=== PATIENT | male | born 1960 | race Caucasian/White ===

== ENCOUNTER 2020-12-11 08:16 | Outpatient (CLI) | payer OTHER, SELFPAY ==
[2020-12-11 09:20] LABS: Alanine Aminotransferase 30 U/L (4-50); Albumin Level 4.7 g/dL (3.5-5.1); Alkaline Phosphatase 55 U/L (38-126); Anion Gap 10 mmol/L (8-16); Aspartate Amino Transferase 36 U/L (17-59); Bilirubin,Total 0.7 mg/dL (0.2-1.3); Blood Urea Nitrogen 15 mg/dL (9-20); Calcium 9.2 mg/dL (8.4-10.2); Carbon Dioxide 25 mmol/L (22-30); Chloride 106 mmol/L (98-107); Cholesterol 132 mg/dL (0-200); Estimated Glomerular Filt Rate > 60; Glucose 100 mg/dL (65-110); HDL Direct 38 mg/dL; Potassium 4.3 mmol/L (3.4-5.0); Sodium 141 mmol/L (137-145); Triglycerides 46 mg/dL (<150)
[2020-12-11 09:34] LABS: LDL Cholesterol Direct 82 mg/dL
[2020-12-11 09:36] LABS: Hemoglobin A1C 5.6 % (<5.7)
[2020-12-11 09:52] LABS: Prostate Specific Antigen 1.3 ng/mL (< OR = 4.0)
== END 2020-12-11 08:17 | disposition home or self-care (01) ==
PROVIDERS: PCP Internal Medicine; Visit Provider Nurse Practitioner
DX: Z13.6 Encounter for screening for cardiovascular disorders (principal); Z13.29 Encounter for screening for other suspected endocrine disorder; Z12.5 Encounter for screening for malignant neoplasm of prostate; Z13.220 Encounter for screening for lipoid disorders; Z13.1 Encounter for screening for diabetes mellitus
CPT/HCPCS: 36415; 80053; 80061; 83036; 84153; 84443; G0103

== ENCOUNTER 2021-12-10 08:53 | Outpatient (CLI) | payer OTHER, SELFPAY ==
--- NOTE | ~2021-12-10 | XR_ITS ---
XR hip RT min 2V 12/10/2021 09:14 Indication: Right hip pain Procedure: 2 views right hip Comparison: No prior studies for comparison. Findings: There is mild osteoarthritis of the right hip. No fracture, subluxation or dislocation. No significant soft tissue abnormality. No foreign bodies. Impression: 1: Mild osteoarthritis of the right hip. Reviewed, dictated and finalized at location A. Impression: 1: Mild osteoarthritis of the right hip.
== END 2021-12-10 08:54 | disposition home or self-care (01) ==
LOC: ANHLAB 08:56 → ANHIMG 08:56
PROVIDERS: PCP Internal Medicine; Visit Provider Internal Medicine
DX: M16.11 Unilateral primary osteoarthritis, right hip (principal)
CPT/HCPCS: 73502

== ENCOUNTER 2021-12-14 07:47 | Outpatient (CLI) | payer OTHER, SELFPAY ==
[2021-12-14 08:43] LABS: Alanine Aminotransferase 29 U/L (6-50); Albumin Level 4.3 g/dL (3.5-5.1); Alkaline Phosphatase 61 U/L (38-126); Anion Gap 10 mmol/L (8-16); Aspartate Amino Transferase 29 U/L (17-59); Bilirubin,Total 0.6 mg/dL (0.2-1.3); Blood Urea Nitrogen 12 mg/dL (9-20); Calcium 9.2 mg/dL (8.4-10.2); Carbon Dioxide 26 mmol/L (22-30); Chloride 104 mmol/L (98-107); Cholesterol 131 mg/dL (0-200); Estimated Glomerular Filt Rate > 60; Glucose 123 mg/dL (65-110); HDL Direct 33 mg/dL; Potassium 3.7 mmol/L (3.4-5.0); Sodium 140 mmol/L (137-145); Triglycerides 73 mg/dL (<150)
[2021-12-14 08:53] LABS: LDL Cholesterol Direct 81 mg/dL
[2021-12-14 09:13] LABS: Prostate Specific Antigen 1.6 ng/mL (< OR = 4.0)
== END 2021-12-14 07:48 | disposition home or self-care (01) ==
LOC: ANHLAB 07:52
PROVIDERS: PCP Internal Medicine; Visit Provider Internal Medicine
DX: Z00.00 Encounter for general adult medical examination without abnormal findings (principal); Z12.5 Encounter for screening for malignant neoplasm of prostate
CPT/HCPCS: 36415; 80053; 80061; 84153; G0103

== ENCOUNTER 2022-06-23 09:07 | Outpatient (CLI) | payer OTHER, SELFPAY ==
[2022-06-23 09:57] LABS: Alanine Aminotransferase 29 U/L (6-50); Albumin Level 4.7 g/dL (3.5-5.1); Alkaline Phosphatase 52 U/L (38-126); Anion Gap 7 mmol/L (8-16); Aspartate Amino Transferase 31 U/L (17-59); Bilirubin,Total 0.6 mg/dL (0.2-1.3); Blood Urea Nitrogen 14 mg/dL (9-20); Calcium 9.3 mg/dL (8.4-10.2); Carbon Dioxide 29 mmol/L (22-30); Chloride 104 mmol/L (98-107); Estimated Glomerular Filt Rate > 60; Glucose 97 mg/dL (65-110); Potassium 3.7 mmol/L (3.4-5.0); Sodium 140 mmol/L (137-145)
[2022-06-23 10:05] LABS: Hemoglobin A1C 5.6 % (<5.7)
== END 2022-06-23 09:08 | disposition home or self-care (01) ==
PROVIDERS: PCP Internal Medicine; Visit Provider Nurse Practitioner Family
DX: Z00.00 Encounter for general adult medical examination without abnormal findings (principal); R73.01 Impaired fasting glucose
CPT/HCPCS: 36415; 80053; 83036

== ENCOUNTER 2022-07-11 09:43 | Outpatient (CLI) | payer OTHER, SELFPAY ==
[2022-07-11 10:29] LABS: Anion Gap 9 mmol/L (8-16); Blood Urea Nitrogen 15 mg/dL (9-20); Calcium 9.4 mg/dL (8.4-10.2); Carbon Dioxide 26 mmol/L (22-30); Chloride 105 mmol/L (98-107); Estimated Glomerular Filt Rate > 60; Glucose 100 mg/dL (65-110); Sodium 140 mmol/L (137-145)
== END 2022-07-11 09:44 | disposition home or self-care (01) ==
LOC: ANHLAB 09:44
PROVIDERS: PCP Family Medicine; Visit Provider Nurse Practitioner Family
DX: I10 Essential (primary) hypertension (principal)
CPT/HCPCS: 36415; 80048

== ENCOUNTER 2023-02-02 07:06 | Outpatient (CLI) | payer OTHER, SELFPAY ==
[2023-02-02 07:41] LABS: Basophils Absolute Auto 0.1 K/mm3 (0.0-0.1); Basophils Percent Auto 0.6 % (0.2-1.2); Eosinophils Absolute Auto 0.3 K/mm3 (0-0.3); Hematocrit 44.4 % (42.0-52.0); Hemoglobin 14.2 g/dL (14.0-18.0); Immature Granulocyte Absolute 0.02 K/mm3 (0.00-0.031); Immature Granulocyte Percent A 0.2 % (0-0.5); Lymphocytes Absolute Auto 2.26 K/mm3 (0.9-3.2); Lymphocytes Percent Auto 27.1 % (18.3-44.2); Mean Corpuscular Hemoglobin 31.3 pg (26-34); Mean Corpuscular Volume 97.8 fl (80-100); Mean Platelet Volume 9.9 fl (7.4-10.4); Monocytes Absolute Auto 0.7 K/mm3 (0.1-0.6); Monocytes Percent Auto 8.9 % (2.6-8.5); Neutrophils Percent Auto 60.2 % (45.5-73.1); Platelet Count Result 285 k/mm3 (150-375); Red Blood Count 4.54 M/mm3 (4.6-6.20); Red Cell Distribution Width 13.4 % (11.5-14.5); White Blood Count 8.4 K/mm3 (4.5-10.0)
[2023-02-02 07:51] LABS: Alanine Aminotransferase 37 U/L (6-50); Albumin Level 4.4 g/dL (3.5-5.1); Alkaline Phosphatase 53 U/L (38-126); Anion Gap 11 mmol/L (8-16); Aspartate Amino Transferase 32 U/L (17-59); Bilirubin,Total 0.8 mg/dL (0.2-1.3); Blood Urea Nitrogen 14 mg/dL (9-20); Calcium 9.2 mg/dL (8.4-10.2); Carbon Dioxide 25 mmol/L (22-30); Chloride 105 mmol/L (98-107); Cholesterol 130 mg/dL (0-200); Estimated Glomerular Filt Rate > 60; Glucose 105 mg/dL (65-110); HDL Direct 30 mg/dL; Potassium 4.2 mmol/L (3.4-5.0); Sodium 141 mmol/L (137-145); Triglycerides 67 mg/dL (<150)
[2023-02-02 08:02] LABS: LDL Cholesterol Direct 81 mg/dL
[2023-02-02 08:22] LABS: Prostate Specific Antigen 1.8 ng/mL (< OR = 4.0)
== END 2023-02-02 07:07 | disposition home or self-care (01) ==
LOC: ANHLAB 07:08
PROVIDERS: Visit Provider Nurse Practitioner Family
DX: Z13.0 Encounter for screening for diseases of the blood and blood-forming organs and certain disorders involving the immune mechanism (principal); I10 Essential (primary) hypertension; Z13.228 Encounter for screening for other metabolic disorders; Z13.220 Encounter for screening for lipoid disorders; Z12.5 Encounter for screening for malignant neoplasm of prostate
CPT/HCPCS: 36415; 80053; 80061; 84153; 85025; G0103

== ENCOUNTER → 2023-02-02 08:11 | Outpatient (CLI) | payer OTHER, SELFPAY ==
--- NOTE | ~2023-02-02 | CT_ITS ---
CT Scan of the Chest without Contrast: Clinical Indication: Lung cancer screening, personal history of nicotine dependence Technique: Contiguous sections were acquired throughout the chest without intravenous contrast. Dose reduction technique was used on this scan by utilizing automated exposure control and iterative recon struction technique. The dose-length product (DLP) was 263.50 mGy-cm. COMPARISON: 05/26/2017 Findings: There is no evidence of any significant mediastinal, hilar or axillary lymphadenopathy. The mediastin al soft tissues appear normal. There is no evidence of pleural or pericardial effusion. 4 mm right lower lobe pulmonary nodule noted (axial image 71), unchanged. Images through the upper abdomen reveal no abnormalities. Impression: Lung RADS 2: Benign appearance. 12 month follow-up screening CT advised. Reviewed, dictated and finalized at location . [employer] Impression: Lung RADS 2: Benign appearance. 12 month follow-up screening CT advised.
== END ==
PROVIDERS: PCP Nurse Practitioner Family; Visit Provider Nurse Practitioner Family
DX: Z12.2 Encounter for screening for malignant neoplasm of respiratory organs (principal); Z87.891 Personal history of nicotine dependence
CPT/HCPCS: 71271

== ENCOUNTER 2023-12-19 08:57 | Day surgery (SDC) | payer OTHER, SELFPAY ==
[2023-11-08 14:00] VITALS: BMI 36.5
[2023-12-10 10:04] VITALS: BMI 36.0
[2023-12-19 09:38] VITALS: BP 134/92; PULSE 72; RESP 16; TEMP 37.1; O2SAT 98
[2023-12-19] MEDS: LACTATED RINGERS 1,000 ML 150 ML IV CONT (09:41)
--- NOTE | 2023-12-19 10:08 | PM.HPGS ---
History of Present Illness History of Present Illness Consent: Risks, benefits, and alternatives have been discussed and questions answered. Patient agrees to proceed with procedure. Chief complaint: Screening for Neoplasm of Colon Narrative: Jasper Moore is a 63 year old male presents today for colon cancer screening. Patient is are normal. Patient denies abdominal pain. He has had no bleeding. Family history is noncontributory. Review of Systems Review of Systems: All systems reviewed & are unremarkable except as noted in HPI and below PMFSH Past Medical History Medical History (Updated 12/19/23 @ 10:09 by Brian Porter MD) BPH (benign prostatic hyperplasia) Broken bones Hamstring tear Hypertension Kidney stone Surgical History Surgical History History of surgical removal of meniscus of knee Family History Family History Father Cancer Mother Hypertension COPD (chronic obstructive pulmonary disease) Sibling Hypertension Cerebrovascular accident Social History Social History Smoking packs per day: 0.5 Smoking cigarettes per day: 10.0 Years smoked: 43 Smoking pack-years: 21.50 Smoking status: Current every day smoker Tobacco type: cigarettes Second hand tobacco smoke exposure: Yes Alcohol intake: current Alcohol use details: rarely Substance use: never Substance use type: does not use Lack of Transportation: YES Lack of Food: Never True Current Housing: I Have Housing Concerned About Future Housing: No Difficulty Paying Gas/Electric Bills: No Difficulty Paying for Meds: No Currently Unemployed: No Education: High School Diploma/GED Difficulty w/ Childcare or Family Care: No Living arrangements: alone Occupation/Education: occupation Gender identity (if verbalized by the patient): Male Spiritual care concerns: No Meds Home Medications and Allergies Home Medications Medication Instructions Recorded Confirmed Type acetaminophen 500 mg capsule 1,000 mg PO DAILY Pain 12/08/20 12/19/23 History ascorbic acid (vitamin C) 1,000 mg 1 g PO DAILY 12/08/20 12/19/23 History tablet multivitamin 1 tablet PO DAILY 12/08/20 12/19/23 History cholecalciferol (vitamin D3) 10 10 mcg PO DAILY 06/23/22 12/19/23 History mcg (400 unit) capsule propylene glycol 0.6 % eye drops 2 drp EACH EYE DAILY PRN dry 10/26/23 12/19/23 Rx (Lubricant Eye (propylene glycol)) eye(s) #10 mL lisinopril 10 mg tablet 10 mg PO DAILY 12/10/23 12/19/23 History Allergies Allergy/AdvReac Type Severity Reaction Status Date / Time No Known Allergies Allergy Verified 12/19/23 09:37 Vital Signs Vital Signs - 24 hr 12/19/23 09:38 Temperature 98.8 F Pulse Rate 72 Respiratory Rate 16 Blood Pressure 134/92 H Pulse Oximetry 98 Oxygen Delivery Room Air Exam Narrative: Physical exam reveals patient to be alert. Vital signs stable. HEENT exam is unremarkable. Patient is anicteric. Is are clear to auscultation and percussion. Heart is without murmur or extra sounds. Abdomen bowel sounds are present soft nontender with no organomegaly. Digital external rectal exam normal. Assessment and Plan Assessment and plan (1) Screen for colon cancer: Code(s): Z12.11 - Encounter for screening for malignant neoplasm of colon Status: Acute Assessment and Plan: Presents today for screening colonoscopy. He appears to be at average risk for colon polyps. Further recommendations may be given after endoscopy.
--- NOTE | 2023-12-19 11:40 | WPDANESEPPF ---
Anes - Initial Pre Proc Eval Procedure: Operation Date: 12/19/23 11:00 Proposed Procedures p Screening Colonoscopy - Brian Porter MD Date/Time: 12/19/23 11:40 Surgeon: Brian Porter MD Pre Op Diagnosis: Screening for Neoplasm of Colon Patient Data Age: 63 Gender: M Height: 1.78 m Weight: 113.1 kg Last Vital Signs Temp 37.1 C 12/19/23 09:38 Pulse 72 12/19/23 09:38 Resp 16 12/19/23 09:38 BP 134/92 H 12/19/23 09:38 Pulse Ox 98 12/19/23 09:38 O2 Del Method Room Air 12/19/23 09:38 Allergies Allergy/AdvReac Type Severity Reaction Status Date / Time No Known Allergies Allergy Verified 12/19/23 09:37 Home Medications Medication Instructions Recorded Confirmed Type acetaminophen 500 mg capsule 1,000 mg PO DAILY Pain 12/08/20 12/19/23 History ascorbic acid (vitamin C) 1,000 mg 1 g PO DAILY 12/08/20 12/19/23 History tablet multivitamin 1 tablet PO DAILY 12/08/20 12/19/23 History cholecalciferol (vitamin D3) 10 10 mcg PO DAILY 06/23/22 12/19/23 History mcg (400 unit) capsule propylene glycol 0.6 % eye drops 2 drp EACH EYE DAILY PRN dry 10/26/23 12/19/23 Rx (Lubricant Eye (propylene glycol)) eye(s) #10 mL lisinopril 10 mg tablet 10 mg PO DAILY 12/10/23 12/19/23 History Patient hx anesthesia problems: none Family hx anesthesia problems: none Results Review: All pre-operative results and documents have been reviewed as part of the pre-operative evaluation. [facility] Past Medical History Medical History (Updated 12/19/23 @ 10:09 by Brian Porter MD) BPH (benign prostatic hyperplasia) Broken bones Hamstring tear Hypertension Kidney stone Surgical History Surgical History History of surgical removal of meniscus of knee Family History Family History Father Cancer Mother Hypertension COPD (chronic obstructive pulmonary disease) Sibling Hypertension Cerebrovascular accident Social History Social History Smoking packs per day: 0.5 Smoking cigarettes per day: 10.0 Years smoked: 43 Smoking pack-years: 21.50 Smoking status: Current every day smoker Tobacco type: cigarettes Second hand tobacco smoke exposure: Yes Alcohol intake: current Alcohol use details: rarely Substance use: never Substance use type: does not use Lack of Transportation: YES Lack of Food: Never True Current Housing: I Have Housing Concerned About Future Housing: No Difficulty Paying Gas/Electric Bills: No Difficulty Paying for Meds: No Currently Unemployed: No Education: High School Diploma/GED Difficulty w/ Childcare or Family Care: No Living arrangements: alone Occupation/Education: occupation Gender identity (if verbalized by the patient): Male Spiritual care concerns: No Anes - Eval Final PreProcedure Day of Procedure 12/19/23 11:40 Patient weight: obese Heart: regular rate and rhythm Lungs: clear to auscultation Airway: Mallampati scale class II Neurological: alert and oriented Last oral intake: >/= 8 hours ASA classification: III Emergent: no Anesthetic plan: proceed Anesthesia type and monitoring: general GIVS and standard monitoring Results Review: All pre-operative results and documents have been reviewed as part of the pre-operative evaluation. Informed Consent: The patient's anesthetic plan and its attendant risks and benefits were discussed with the patient/family/POA. Questions were solicited and answers provided to the satisfaction of the patient/family/POA.
[2023-12-19 12:15] VITALS: BP 134/89; PULSE 74; RESP 18; O2SAT 95
[2023-12-19 12:25] VITALS: BP 139/92; PULSE 60; RESP 16; O2SAT 99
[2023-12-19 12:35] VITALS: BP 151/90; PULSE 67; RESP 16; O2SAT 97
[2023-12-19 12:45] VITALS: PULSE 65; RESP 16; O2SAT 97
--- NOTE | 2023-12-19 13:04 | SUR.PHASEII ---
[address] Trinh, pt had A-fib noted on monitor during procedure. EKG obtained in phase [address] to Dr[address] Trinh for review. Pt confirmed to be in A-fib. Pt denies chest pain, dizziness, lightheadedness, or SOB. A-fib is new onset. Dr. Trinh spoke with pt at bedside regarding further instructions of calling PCP upon leaving facility and to report to ER if symptoms of above occur. Pt states understanding. Copy of EKG made and given to patient. Original placed on chart. Pt A&Ox4, VSS. Pt wheeled out of ASC in no apparent distress.
--- NOTE | 2023-12-19 13:25 | WPDANESPN ---
Anes - Prog Note Post-Op Date/Time: 12/19/23 13:25 Vital Signs: Last Vital Signs Temp 37.1 C 12/19/23 09:38 Pulse 65 12/19/23 12:45 Resp 16 12/19/23 12:45 BP 151/90 H 12/19/23 12:35 Pulse Ox 97 12/19/23 12:45 O2 Del Method Room Air 12/19/23 12:45 Pain Score (VAS): 0 I/O: Intake & Output 12/18/23 12/19/23 12/19/23 23:59 07:59 15:59 Intake Total 200 Balance 200 Patient Feedback: Patient satisfied with anesthetic care. Other Findings: Patient found to have A fib during coloscopy. 12 lead EKG confirmed A fib in recovery. Patient given copy and informed to call PCP after leaving to set up appt for outpatient treatment for new onset A fib. Patients other vitals were stable, rate controlled, asymptomatic. Patient instructed to go to ER if chest pain, dyspnea, syncope or near syncope or any other abnormal symptoms occur.
--- NOTE | 2023-12-19 14:01 | WPDANESPN ---
Anes - Prog Note Post-Op Date/Time: 12/19/23 14:01 Cardiovascular status: normal Respiratory status: normal Airway patency: baseline Mental status: baseline Post-Op hydration status: normal Vital Signs: Last Vital Signs Temp 37.1 C 12/19/23 09:38 Pulse 65 12/19/23 12:45 Resp 16 12/19/23 12:45 BP 151/90 H 12/19/23 12:35 Pulse Ox 97 12/19/23 12:45 O2 Del Method Room Air 12/19/23 12:45 Pain Score (VAS): 0 I/O: Intake & Output 12/18/23 12/19/23 12/19/23 23:59 07:59 15:59 Intake Total 200 Balance 200 Post-procedural complaints: none Patient Feedback: Patient satisfied with anesthetic care. Other Findings: Patient vital signs back to baseline. Patient denies nausea and vomiting. Patient's pain under control. Patient OK for discharge.
== END 2023-12-19 12:55 | disposition home or self-care (01) ==
PROVIDERS: PCP Nurse Practitioner Family; Visit Provider Internal Medicine Gastroenterology
PROC: 0DJD8ZZ Inspection of Lower Intestinal Tract, Via Natural or Artificial Opening Endoscopic (ICD-10-PCS; CPT 45378; principal; 2023-12-19 11:00)
DX: Z12.11 Encounter for screening for malignant neoplasm of colon (principal); D12.2 Benign neoplasm of ascending colon; D12.5 Benign neoplasm of sigmoid colon; K57.30 Diverticulosis of large intestine without perforation or abscess without bleeding; K64.8 Other hemorrhoids
CPT/HCPCS: 45385

== ENCOUNTER 2023-12-19 09:00 | Outpatient (NON) | payer OTHER, SELFPAY | END 2023-12-19 09:01 | disposition home or self-care (01) | LOC: ANHLAB 12-20 09:00 | PROVIDERS: PCP Nurse Practitioner Family; Visit Provider Internal Medicine Gastroenterology | DX: Z12.11 Encounter for screening for malignant neoplasm of colon (principal) | CPT/HCPCS: 88305; 88342 ==

== ENCOUNTER 2023-12-20 10:34 | Outpatient (CLI) | payer OTHER, SELFPAY ==
[2023-12-20 11:02] LABS: Hematocrit 45.6 % (42.0-52.0); Mean Corpuscular HGB Conc 32.9 g/dl (32-36); Mean Corpuscular Hemoglobin 31.8 pg (26-34); Mean Corpuscular Volume 96.8 fl (80-100); Mean Platelet Volume 10.1 fl (7.4-10.4); Platelet Count Result 302 k/mm3 (150-375); Red Blood Count 4.71 M/mm3 (4.6-6.20); Red Cell Distribution Width 13.2 % (11.5-14.5)
[2023-12-20 11:18] LABS: Alanine Aminotransferase 37 U/L (6-50); Albumin Level 4.5 g/dL (3.5-5.1); Alkaline Phosphatase 56 U/L (38-126); Anion Gap 9 mmol/L (4-12); Aspartate Amino Transferase 37 U/L (17-59); Bilirubin,Total 0.6 mg/dL (0.2-1.3); Blood Urea Nitrogen 18 mg/dL (9-20); Calcium 9.2 mg/dL (8.4-10.2); Carbon Dioxide 24 mmol/L (22-30); Chloride 106 mmol/L (98-107); Cholesterol 128 mg/dL (0-200); Estimated Glomerular Filt Rate > 60; Glucose 104 mg/dL (65-110); HDL Direct 28 mg/dL; Sodium 139 mmol/L (137-145); Triglycerides 74 mg/dL (<150)
[2023-12-20 11:27] LABS: NT Pro B Type Natriuretic Pept 1190 pg/mL (19.9-100)
[2023-12-20 11:30] LABS: LDL Cholesterol Direct 75 mg/dL
[2023-12-20 12:10] LABS: Free T4 Free Thyroxine 1.23 ng/mL (0.78-2.19)
[2023-12-20 13:49] LABS: Hemoglobin A1C 6.1 % (<5.7)
== END 2023-12-20 10:35 | disposition home or self-care (01) ==
LOC: ANHLAB 10:35
PROVIDERS: PCP Nurse Practitioner Family; Visit Provider Nurse Practitioner Family
DX: I48.91 Unspecified atrial fibrillation (principal); H57.89 Other specified disorders of eye and adnexa; I10 Essential (primary) hypertension; K42.9 Umbilical hernia without obstruction or gangrene; M19.90 Unspecified osteoarthritis, unspecified site; M25.561 Pain in right knee; R22.9 Localized swelling, mass and lump, unspecified; Z00.00 Encounter for general adult medical examination without abnormal findings; Z13.220 Encounter for screening for lipoid disorders; Z72.0 Tobacco use; Z13.1 Encounter for screening for diabetes mellitus; Z68.31 Body mass index [BMI] 31.0-31.9, adult
CPT/HCPCS: 36415; 80053; 80061; 83036; 83880; 84439; 84443; 85027; 85610

== ENCOUNTER 2024-02-06 13:16 | Outpatient (CLI) | payer OTHER, SELFPAY ==
--- NOTE | 2024-02-06 13:36 | ECHO_ITS ---
Patient Info Name: Jasper Moore Age: 64 years : 1960 Gender: Male Ht: 70 in Wt: 250 lbs BSA: 2.41 m2 HR: 75 bpm BP: 160 / 95 mmHg Heart Rhythm: Atrial Fibrillation Technical Quality: Fair Exam Date: 02/06/2024 1:51 PM Exam Location: Echo Lab Patient Status: Outpatient Admit Date: 02/06/2024 Staff Ordering Physician: Gonzales Leone DO Electric Arc Welder: Radha Reaves RDCS Attending Provider: Gonzales Leone DO Referring Physician: Vasu VUONG; Exam Type: CA echo dop color flow w con Study Info Indications I48.1 - Persistent atrial fibrillation Complete two-dimensional, color flow and Doppler transthoracic echocardiogram is performed. Summary 1. Complete two-dimensional, color flow and Doppler transthoracic echocardiogram is performed. 2. Left ventricular chamber dimension is moderately enlarged. 3. Left ventricular systolic function is mildly reduced, estimated at 45-50%. 4. The left ventricular diastolic function is abnormal. 5. E/e' 13 is mildly elevated. 6. Atrial fibrillation. 7. Left atrial chamber dimension is severely enlarged. 8. Right atrial chamber dimension is mildly enlarged. 9. There is mild aortic valve sclerosis. 10. The mitral valve has mildly calcified annulus. 11. There is trace mitral valve regurgitation. 12. There is trace pulmonic regurgitation. Left Ventricle E/e' 13 is mildly elevated. Atrial fibrillation. Left ventricular chamber dimension is moderately enlarged. Left ventricular systolic function is mildly reduced, estimated at 45-50%. The left ventricular diastolic function is abnormal. Right Ventricle Right ventricular systolic function is normal and with normal TAPSE 2.5 cm. Right ventricular chamber dimension is normal. Left Atria Left atrial chamber dimension is severely enlarged. Right Atria Right atrial chamber dimension is mildly enlarged. Aortic Valve The aortic valve is trileaflet. There is mild aortic valve sclerosis. There is no aortic valve stenosis. There is no aortic valve regurgitation. Pulmonic Valve There is trace pulmonic regurgitation. Mitral Valve The mitral valve has mildly calcified annulus. There is no mitral valve stenosis. There is trace mitral valve regurgitation. Tricuspid Valve There is no tricuspid valve regurgitation. Pericardium/Pleural There is no pericardial effusion. Inferior Vena Cava Normal inferior vena cava with >50% collapse upon inspiration consistent with normal right atrial pressure, 5 mmHg. Aorta The aortic root size at the sinus of Valsalva is normal. Left Ventricular Outflow Tract Name Value Normal LVOT 2D LVOT Diameter 2.08 cm LVOT Doppler LVOT Peak Gradient 6 mmHg LVOT Mean Gradient 3 mmHg LVOT VTI 18.85 cm LVOT VTI/AV VTI Ratio 0.85 LVOT Stroke Volume 64.11 ml LVOT CO 4.48 l/min LVOT CI 1.86 L/min/m2 Pulmonic Valve Name Value Normal PV Doppler PV Peak Gradient 5 mmHg PV Regurgitation Doppler CA Peak End Diastolic Velocity 141.61 cm/s Mitral Valve Name Value Normal MV Doppler MV Decel [place] 624.60 cm/s2 MV PHT 0 s MV Area (PHT) 4.07 cm2 4.00-5.00 MV Diastolic Function MV E Peak Velocity 116.34 cm/s MV A Peak Velocity 0.46 cm/s MV E/A 254.05 MV Decel Time 0 s Tricuspid Valve Name Value Normal Estimated PAP/RSVP RA Pressure 5 mmHg <=5 Aorta Name Value Normal Ascending Aorta Ao Root Diameter (MM) 2.63 cm Ao Root Diam Index (MM) 1.09 cm/m2 Aortic Valve Name Value Normal AV Doppler AV Peak Velocity 139.21 cm/s AV Peak Gradient 8 mmHg AV Mean Gradient 4 mmHg AV VTI 22.05 cm AV Area (Cont Eq VTI) 2.91 cm2 >=3.00 AV Area (Cont Eq Rafael) 3.02 cm2 AV Regurgitation 2D LVOT Area 3.40 cm2 Ventricles Name Value Normal LV Dimensions 2D/MM IVS Diastolic Thickness (2D) 0.96 cm 0.60-1.00 IVS Diastole Thickness (MM) 1.04 cm 0.60-1.00 LVID Diastole (2D) 6.17 cm 4.20-5.80 LVID Diastole (MM) 6.32 cm 4.20-5.80 LVIW Diastolic Thickness (2D) 0.96 cm 0.60-1.00 LVIW Diastolic Thickness (MM) 1.04 cm 0.60-1.00 LVID Systole (2D) 3.80 cm 2.50-4.00 LVID Systole (MM) 4.51 cm 2.50-4.00 LVOT Diameter 2.08 cm LV Mass (2D Cubed) 244.55 g 88.00-224.00 LV Mass Index (2D Cubed) 0.01 g/cm2 0.00-0.01 Relative Wall Thickness (2D) 0.31 LV Mass (MM Cubed) 283.27 g 88.00-224.00 LV Mass Index (MM Cubed) 0.01 g/cm2 0.00-0.01 Relative Wall Thickness (MM) 0.33 LV Fractional Shortening/Ejection Fraction 2D/MM LV Fractional Shortening (2D) 38 % 25-43 LV Fractional Shortening (MM) 29 % 25-43 LV EF (MM Teicholz) 54 % 52-72 LV EF (2D Teicholz) 68 % 52-72 LV Diastolic Volume (4C MOD) 138.47 ml LV EF (4C MOD) 40 % LV Diastolic Volume (2C MOD) 120.02 ml LV EF (2C MOD) 40 % LV Diastolic Volume (BP MOD) 129.67 ml 62.00-150.00 LV Diastolic Volume Index (BP MOD) 0.05 l/m2 0.03-0.07 LV Systolic Volume (BP MOD) 77.81 ml 21.00-61.00 LV Systolic Volume Index (BP MOD) 0.03 l/m2 0.01-0.03 LV EF (BP MOD) 40 % 52-72 LV Diastolic Length (4C) 8.74 cm LV Systolic Length (4C) 7.26 cm LV Stroke Volume (4C MOD) 56.03 ml Atria Name Value Normal LA Dimensions LA Dimension (MM) 6.00 cm 3.00-4.10 LA Volume (4C A-L) 143.72 ml LA Volume (BP A-L) 129.98 ml RA Dimensions RA Area (4C) 22.76 cm2 <=18.00 Report Signatures
--- NOTE | 2024-02-06 15:06 | IVDEFINITY ---
Prior to administration of IV Definity the patient was educated on the risks and benefits of the imaging enhancing agent including potential adverse side effects. The patient verbalized understanding. Allergies were verified. No exclusion criteria were identified and at least one of the following inclusion criteria were met: 1) physician request, 2) patient technically difficult to image (per the [place] [employer]chocardi[employer] guidelines of two or more segments not discernable within the apical view), or 3) questionable left ventricular function. ?
== END 2024-02-06 13:17 | disposition home or self-care (01) ==
PROVIDERS: PCP Nurse Practitioner Family; Visit Provider Internal Medicine Cardiovascular Disease
DX: I48.91 Unspecified atrial fibrillation (principal)
CPT/HCPCS: 93306; C8929

== ENCOUNTER 2024-03-26 07:52 | Outpatient (CLI) | payer OTHER, SELFPAY ==
--- NOTE | ~2024-03-26 | NM_ITS ---
EXAMINATION: NM ozzie stress w perfusion DATE: 03/26/2024 10:03 INDICATION: Heart disease. TECHNIQUE: Rest images were obtained following intravenous administration of 10.9 mCi Tc99m tetrofosm in (Myoview). The patient was infused intravenously with Lexiscan (regadenoson). Then, 34.6 mCi Tc99m tetrofosmin (Myoview) was administered intravenously, and stress images were obtained. Data was leland nstructed into short axis and horizontal and vertical long axis SPECT images. Gated SPECT images were also obtained. COMPARISON: None. FINDINGS: There is no definite reversible or fixed perfusion abnormality to suggest ischemia or infar ction. There is no segmental wall motion abnormality. Left ventricular ejection fraction measures 3 8%. IMPRESSION: 1. No definite ischemia or infarct. 2. Global hypokinesis with left ventricular ejection fraction measuring 38%. Reviewed, dictated and finalized at location A. ET DEVELOPMENT ANALYST
--- NOTE | 2024-03-26 08:52 | EST_ITS ---
Patient Info Name: Jasper Moore Age: 64 years : 1960 Gender: Male Ht: 70 in Wt: 250 lbs BSA: 2.41 m2 HR: 67 bpm BP: 146 / 99 mmHg Exam Date: 03/26/2024 9:00 AM Exam Location: Echo Lab Patient Status: Outpatient Admit Date: 03/26/2024 Staff Ordering Physician: Gonzales Leone DO Attending Provider: Gonzales Leone DO Exercise Technologist: Gem Vasquez RDCS Exercise Physician: Gonzales Leone DO Exam Type: CA stress ozzie w NM Study Info A regadenoson stress test was performed. Summary 1. 1. Negative lexiscan stress test for ischemic ST changes by ECG criteria. 2. 2. Stable hemodynamics throughout the test. 3. 3. Nuclear scan to follow and will be reported separately. Please correlate with it. 4. 4. Patient informed of the above results. Protocol: Lexiscan Stress ECG Details Stage: REST Duration (min): 1 min : 27 sec HR (bpm): 69 SBP (mmHg): 146 DBP (mmHg): 99 Stage: REST Duration (min): 8 min : 10 sec HR (bpm): 71 SBP (mmHg): 146 DBP (mmHg): 99 Stage: STAGE 1 Duration (min): 1 min : 0 sec HR (bpm): 74 SBP (mmHg): 139 DBP (mmHg): 104 Stage: RECOVERY Duration (min): 1 min : 0 sec HR (bpm): 87 SBP (mmHg): 139 DBP (mmHg): 104 Stage: RECOVERY Duration (min): 2 min : 0 sec HR (bpm): 81 SBP (mmHg): 139 DBP (mmHg): 104 Stage: RECOVERY Duration (min): 3 min : 0 sec HR (bpm): 83 SBP (mmHg): 132 DBP (mmHg): 93 Stage: RECOVERY Duration (min): 3 min : 13 sec HR (bpm): 80 SBP (mmHg): 132 DBP (mmHg): 93 Rest HR: 71 bpm Peak HR: 91 bpm Rest Sys BP: 146 mmHg Peak Sys BP: 139 mmHg Max Pred HR: 156 bpm % Max Pred HR: 58 % Target HR: 133 bpm Max RPP: 12,649 bpm*mmHg Termination Reason: Completed protocol Cardiac Symptoms: Shortness of breath, Chest tightness Total Time: 1 min : 0 sec Rest Varner BP: 99 mmHg Peak Varner BP: 104 mmHg Total Dose: 0.4 mg Resting ECG Atrial fibrillation, borderline ST-T wave abnormality in diffuse leads. Stress ECG No ST changes. Arrhythmias No other arrhythmias. Report Signatures
== END 2024-03-26 07:53 | disposition home or self-care (01) ==
PROVIDERS: PCP Nurse Practitioner Family; Visit Provider Internal Medicine Cardiovascular Disease
DX: I51.9 Heart disease, unspecified (principal)
CPT/HCPCS: 78452; 93017; A9502; J2785

== ENCOUNTER 2024-06-05 02:05 | Day surgery (SDC) | payer OTHER, SELFPAY ==
[2024-02-29 14:59] VITALS: BMI 35.9
--- NOTE | 2024-02-29 15:37 | PC.NURSE ---
pat call done for upcoming colonoscopy mar 24, 2024. Pt stated he had colonoscopy done early december 2023 and during procedure he was in afib. he did see dr oquendo for evaluation and had an echo done, was started on asa 325mg. pt stated he is supposed to have more testing done but wasn't sure exactly what tests were. he is waiting to hear back from dr brito office. informed pt we would be obtaining cardiac clearance from dr oqunedo and if further testing needed to be done, procedure may be rescheduled. pt agreeable and voiced understanding. cardiac clearance faxed to dr brito office with confirmation received.
--- NOTE | 2024-03-23 10:24 | SUR.PREOP ---
Pt called this am to cancel his appointment on 03/24 due to provider availability. Pt rescheduled to 06/16 at 1000.
[2024-05-28 14:41] VITALS: BMI 35.9
[2024-06-05 12:48] VITALS: BP 134/104; PULSE 76; RESP 18; TEMP 36.2; O2SAT 99; BMI 35.9
[2024-06-05] MEDS: LACTATED RINGERS 1,000 ML 150 ML IV CONT (13:00)
--- NOTE | 2024-06-05 13:00 | PM.IMHP ---
H&P: HPI History of Present Illness Date/Time: 06/05/24 13:00 Chief Complaint: History of colonic carcinoma Narrative: on December 2023 the patient underwent a screening colonoscopy finding a large ascending colon polyp, which was resected. Pathology revealed adenocarcinoma with invasion to the lamina propria with additional lymphovascular invasion. He is here for follow-up. Review of Systems Review of Systems: All systems reviewed & are unremarkable except as noted in HPI and below PMFSH Past Medical History Medical History (Updated 05/02/24 @ 09:12 by Emelina Wetzel APRN) BMI 31.0-31.9,adult Screen for colon cancer BPH (benign prostatic hyperplasia) Hypertension Hamstring tear Broken bones Kidney stone Surgical History Surgical History History of surgical removal of meniscus of knee Family History Family History Father Cancer Mother Hypertension COPD (chronic obstructive pulmonary disease) Sibling Hypertension Cerebrovascular accident Social History Social History Smoking packs per day: 0.5 Smoking cigarettes per day: 10.0 Years smoked: 43 Smoking pack-years: 21.50 Smoking status: Current some day smoker Tobacco type: cigarettes Second hand tobacco smoke exposure: Yes Additional smoking assessment comments: 1/2 pack a day Alcohol intake: current Alcohol use details: rarely Substance use: never Substance use type: does not use Lack of Transportation: YES Lack of Food: Never True Current Housing: I Have Housing Concerned About Future Housing: No Difficulty Paying Gas/Electric Bills: No Difficulty Paying for Meds: No Currently Unemployed: No Education: High School Diploma/GED Difficulty w/ Childcare or Family Care: No Living arrangements: alone Occupation/Education: occupation Gender identity (if verbalized by the patient): Male Spiritual care concerns: No Meds Home Medications and Allergies Home Medications ?Medication ?Instructions ?Recorded ?Confirmed ?Type acetaminophen 500 mg capsule 1,000 mg PO DAILY Pain 12/08/20 06/05/24 History ascorbic acid (vitamin C) 1,000 mg 1 g PO DAILY 12/08/20 06/05/24 History tablet multivitamin 1 tablet PO DAILY 12/08/20 06/05/24 History cholecalciferol (vitamin D3) 10 10 mcg PO DAILY 06/23/22 06/05/24 History mcg (400 unit) capsule propylene glycol 0.6 % eye drops 2 drp EACH EYE DAILY PRN dry 10/26/23 05/02/24 Rx (Lubricant Eye (propylene glycol)) eye(s) #10 mL aspirin 325 mg tablet,delayed 325 mg PO DAILY 01/11/24 06/05/24 History release lisinopril 10 mg tablet See Rx Instructions .Route 01/28/24 06/05/24 Rx .COMPLEX #90 tabs Allergies Allergy/AdvReac Type Severity Reaction Status Date / Time No Known Allergies Allergy Verified 06/05/24 12:56 Vital Signs Vital Signs - 24 hr 06/05/24 12:48 Temperature 97.1 F L Pulse Rate 76 Respiratory Rate 18 Blood Pressure 134/104 H Pulse Oximetry 99 Oxygen Delivery Room Air Exam Const: General: cooperative and healthy appearing Resp: Effort & Inspection: normal respiratory effort and able to speak in complete sentences Auscultation: clear to auscultation bilaterally Cardio: Rate: regular rate Rhythm: regular rhythm GI: Inspection: normal to inspection GI Palp: No No hepatosplenomegaly present Auscultation: normal bowel sounds Rectal Exam: deferred Skin: General skin exam: normal color Psych: Appearance: grossly normal Mental Status: mental status grossly normal Assessment and Plan Assessment and plan (1) Colon polyp: Qualifiers: Colon polyp type: unspecified Colon location: unspecified part of colon Qualified Code(s): K63.5 - Polyp of colon Code(s): K63.5 - Polyp of colon Status: Acute Assessment and Plan: The patient is deemed a good candidate for the procedure. Consent signed. Will proceed.
--- NOTE | 2024-06-05 13:01 | SUR.PREOP ---
Notified of patients blood pressure of 144/109 and 134/104. Also, notified Dr. Caicedo that patient stated had 2 pancakes with syrup yesterday (06/04) at 0[address]. Dr. Caicedo will proceed with procedure.
--- NOTE | 2024-06-05 13:17 | WPDANESEPPF ---
Anes - Initial Pre Proc Eval Procedure: Operation Date: 06/05/24 14:00 Proposed Procedures p Colonoscopy - Paul Caicedo MD Date/Time: 06/05/24 13:17 Surgeon: Paul Caicedo MD Pre Op Diagnosis: hx of colon polyps Patient Data Age: 64 Gender: M Height: 1.78 m Weight: 113.4 kg Last Vital Signs Temp 36.2 C L 06/05/24 12:48 Pulse 76 06/05/24 12:48 Resp 18 06/05/24 12:48 BP 134/104 H 06/05/24 12:48 Pulse Ox 99 06/05/24 12:48 O2 Del Method Room Air 06/05/24 12:48 Allergies Allergy/AdvReac Type Severity Reaction Status Date / Time No Known Allergies Allergy Verified 06/05/24 12:56 Home Medications ?Medication ?Instructions ?Recorded ?Confirmed ?Type acetaminophen 500 mg capsule 1,000 mg PO DAILY Pain 12/08/20 06/05/24 History ascorbic acid (vitamin C) 1,000 mg 1 g PO DAILY 12/08/20 06/05/24 History tablet multivitamin 1 tablet PO DAILY 12/08/20 06/05/24 History cholecalciferol (vitamin D3) 10 10 mcg PO DAILY 06/23/22 06/05/24 History mcg (400 unit) capsule propylene glycol 0.6 % eye drops 2 drp EACH EYE DAILY PRN dry 10/26/23 05/02/24 Rx (Lubricant Eye (propylene glycol)) eye(s) #10 mL aspirin 325 mg tablet,delayed 325 mg PO DAILY 01/11/24 06/05/24 History release lisinopril 10 mg tablet See Rx Instructions .Route 01/28/24 06/05/24 Rx .COMPLEX #90 tabs Patient hx anesthesia problems: none Family hx anesthesia problems: none Results Review: All pre-operative results and documents have been reviewed as part of the pre-operative evaluation. [facility] Past Medical History Medical History BMI 31.0-31.9,adult Screen for colon cancer BPH (benign prostatic hyperplasia) Hypertension Hamstring tear Broken bones Kidney stone Surgical History Surgical History History of surgical removal of meniscus of knee Family History Family History Father Cancer Mother Hypertension COPD (chronic obstructive pulmonary disease) Sibling Hypertension Cerebrovascular accident Social History Social History Smoking packs per day: 0.5 Smoking cigarettes per day: 10.0 Years smoked: 43 Smoking pack-years: 21.50 Smoking status: Current some day smoker Tobacco type: cigarettes Second hand tobacco smoke exposure: Yes Additional smoking assessment comments: 1/2 pack a day Alcohol intake: current Alcohol use details: rarely Substance use: never Substance use type: does not use Lack of Transportation: YES Lack of Food: Never True Current Housing: I Have Housing Concerned About Future Housing: No Difficulty Paying Gas/Electric Bills: No Difficulty Paying for Meds: No Currently Unemployed: No Education: High School Diploma/GED Difficulty w/ Childcare or Family Care: No Living arrangements: alone Occupation/Education: occupation Gender identity (if verbalized by the patient): Male Spiritual care concerns: No Anes - Eval Final PreProcedure Day of Procedure 06/05/24 13:17 Patient weight: obese Heart: irregular rhythm Lungs: decreased breath sounds Airway: Mallampati scale class II Neurological: alert and oriented Last oral intake: >/= 8 hours ASA classification: III Emergent: no Anesthetic plan: proceed Anesthesia type and monitoring: general GIVS and standard monitoring Results Review: All pre-operative results and documents have been reviewed as part of the pre-operative evaluation. Informed Consent: The patient's anesthetic plan and its attendant risks and benefits were discussed with the patient/family/POA. Questions were solicited and answers provided to the satisfaction of the patient/family/POA.
[2024-06-05 13:53] VITALS: BP 137/79; PULSE 72; RESP 22; O2SAT 94
[2024-06-05 14:03] VITALS: BP 129/90; PULSE 75; RESP 22; O2SAT 95
[2024-06-05 14:13] VITALS: BP 138/98; PULSE 75; RESP 25; O2SAT 98
== END 2024-06-05 14:21 | disposition home or self-care (01) ==
PROVIDERS: PCP Nurse Practitioner Family; Visit Provider Internal Medicine Gastroenterology
PROC: 0DJD8ZZ Inspection of Lower Intestinal Tract, Via Natural or Artificial Opening Endoscopic (ICD-10-PCS; CPT 45378; principal; 2024-06-05 14:00)
DX: Z08 Encounter for follow-up examination after completed treatment for malignant neoplasm (principal); D12.2 Benign neoplasm of ascending colon; K57.30 Diverticulosis of large intestine without perforation or abscess without bleeding; N40.0 Benign prostatic hyperplasia without lower urinary tract symptoms; I10 Essential (primary) hypertension; F17.210 Nicotine dependence, cigarettes, uncomplicated; E66.9 Obesity, unspecified; Z68.35 Body mass index [BMI] 35.0-35.9, adult; Z79.82 Long term (current) use of aspirin; Z98.890 Other specified postprocedural states; Z87.442 Personal history of urinary calculi; Z85.038 Personal history of other malignant neoplasm of large intestine; Z80.9 Family history of malignant neoplasm, unspecified; Z82.49 Family history of ischemic heart disease and other diseases of the circulatory system
CPT/HCPCS: 45385; 45381; 88305; J2704; J7120

== ENCOUNTER 2024-07-04 09:11 | Outpatient (CLI) | payer OTHER, SELFPAY ==
--- NOTE | ~2024-07-04 | CT_ITS ---
Clinical Indication: Colon cancer CT Scan of the Chest, Abdomen, and Pelvis with Contrast: Technique: Contiguous sections were acquired throughout the chest, abdomen, and pelvis after intraven ous administration of 100 cc of Omnipaque 350. Dose reduction technique was used on this scan by denisa nicolasing automated exposure control and iterative reconstruction technique. The dose-length product (DL P) was 1603.93 mGy-cm. Comparison: 02/02/2023 Findings: There is no evidence of any significant mediastinal, hilar or axillary lymphadenopathy. The mediastin al soft tissues appear normal. There is no evidence of pleural or pericardial effusion. Stable 3 mm right lower lobe pulmonary nodule (axial image 71). There is diffuse fatty infiltration of the liver. Cholelithiasis noted. The spleen, pancreas, adrenal s and kidneys are within normal limits. There are atherosclerotic calcifications of the aorta. No ly mphadenopathy. No bowel obstruction or bowel wall thickening. There is no evidence to suggest acute appendicitis. Urinary bladder is unremarkable. Prostate gland enlarged. No ascites. Impression: No evidence for active malignancy or metastatic disease. Diffuse fatty infiltration of liver. Cholelithiasis. Stable 3 mm right lower lobe pulmonary nodule. Reviewed, dictated and finalized at [facility]. Impression: No evidence for active malignancy or metastatic disease. Diffuse fatty infiltration of liver. Cholelithiasis. Stable 3 mm right lower lobe pulmonary nodule.
[2024-07-04 10:42] LABS: Estimated Glomerular Filt Rate > 60
== END 2024-07-04 09:12 | disposition home or self-care (01) ==
PROVIDERS: PCP Nurse Practitioner Family; Visit Provider Nurse Practitioner Family
DX: C18.9 Malignant neoplasm of colon, unspecified (principal); K76.0 Fatty (change of) liver, not elsewhere classified; K80.20 Calculus of gallbladder without cholecystitis without obstruction; R91.1 Solitary pulmonary nodule
CPT/HCPCS: 36415; 71260; 74177; 82565; Q9967

== ENCOUNTER 2024-07-21 01:39 | Emergency (ER) | payer OTHER, SELFPAY ==
--- NOTE | ~2024-07-21 | CT_ITS ---
Non-contrast CT scan of the Abdomen and Pelvis Clinical indication: Left flank pain Technique: 2.5 mm axial scans were obtained through the abdomen and pelvis without intravenous or or al contrast. Dose reduction technique was used on this scan by utilizing automated exposure control a nd iterative reconstruction technique. The dose-length product (DLP) was 1435.91 mGy-cm. COMPARISON: 07/04/2024 and 02/02/2023 Findings: Images through the lung bases reveal stable 7 mm right middle lobe pulmonary nodule.. There is a 4 mm distal left ureteral stone with mild left hydroureteronephrosis and left perinephric stranding. No right renal or right ureteral stone. Probable diffuse hepatic steatosis. Cholelithiasis noted. The spleen, pancreas, and adrenals appear n ormal. There are atherosclerotic calcifications of the aorta. . There is no evidence of bowel obstruction. Images through the pelvis were performed. There is no evidence of ascites or lymphadenopathy. Urinary bladder unremarkable. Prostate gland enlarged. Impression: 4 mm distal left ureteral stone with mild left hydroureteronephrosis and perinephric stranding. Cholelithiasis. Diffuse hepatic steatosis. Enlarged prostate gland. Reviewed, dictated and finalized at location . Impression: 4 mm distal left ureteral stone with mild left hydroureteronephrosis and perine phric stranding. Cholelithiasis. Diffuse hepatic steatosis. Enlarged prostate gland.
[2024-07-21 01:41] VITALS: BP 166/98; PULSE 113; RESP 20; TEMP 36.7; O2SAT 97
--- NOTE | 2024-07-21 01:50 | ED.GENADULT ---
HPI - General Adult General Chief complaint: Back Pain/Injury Stated complaint: Bilateral flank pain, diff urinating, vomit x 2 History of Present Illness HPI narrative: 64-year-old male present to the emergency department for evaluation for left flank pain that started approximately 6:00 p.m.. Patient does have prior history of kidney stones but states he has passed them on his on and has not had follow-up with Urology previously. Patient states he is mother is currently hospitalized and patient was not drinking enough fluid. Patient's began having left flank pain at 6:00 p.m. and did drink approximately 32 oz of water. Patient states he still not had significant urinary output. Patient was complaining of left flank pain and was treated with 100 mcg of fentanyl by EMS and states pain is controlled upon arrival to the emergency department. Related Data Home Medications ?Medication ?Instructions ?Recorded ?Confirmed ?Last Taken ?Type acetaminophen 500 mg capsule 1,000 mg PO DAILY Pain 12/08/20 07/14/24 06/04/24 History ascorbic acid (vitamin C) 1,000 mg 1 g PO DAILY 12/08/20 07/14/24 06/04/24 History tablet multivitamin 1 tablet PO DAILY 12/08/20 07/14/24 06/04/24 History cholecalciferol (vitamin D3) 10 10 mcg PO DAILY 06/23/22 07/14/24 06/04/24 History mcg (400 unit) capsule aspirin 325 mg tablet,delayed 325 mg PO DAILY 01/11/24 07/14/24 06/04/24 History release Allergies Allergy/AdvReac Type Severity Reaction Status Date / Time No Known Allergies Allergy Verified 07/21/24 01:49 Review of Systems Review of Systems: All systems reviewed & are unremarkable except as noted in HPI and below [facility] Past Medical History Medical History BMI 31.0-31.9,adult Screen for colon cancer BPH (benign prostatic hyperplasia) Hypertension Hamstring tear Broken bones Kidney stone Surgical History Surgical History History of surgical removal of meniscus of knee Family History Family History (Updated 07/11/24 @ 09:03 by Lorena Sweet MA) Father Cancer Hypertension Heart problem Throat cancer Mother COPD (chronic obstructive pulmonary disease) Sibling Hypertension Cerebrovascular accident Social History Social History (Updated 07/11/24 @ 09:03 by Lorena Sweet MA) Smoking packs per day: 0.5 Smoking cigarettes per day: 10.0 Years smoked: 43 Smoking pack-years: 21.50 Smoking status: Current some day smoker Tobacco type: cigarettes Second hand tobacco smoke exposure: Yes Additional smoking assessment comments: 1/2 pack a day Alcohol intake: current Alcohol use details: rarely Substance use: never Substance use type: does not use Current Housing: Decline to Answer Concerned About Future Housing: Decline to Answer Difficulty Paying Gas/Electric Bills: Decline to Answer Difficulty Paying for Meds: Decline to Answer Currently Unemployed: Decline to Answer Education: High School Diploma/GED Difficulty w/ Childcare or Family Care: Decline to Answer Living arrangements: alone Occupation/Education: occupation Gender identity (if verbalized by the patient): Male Spiritual care concerns: No Exam Narrative: APPEARANCE: Well appearing, no pain, no distress, well-nourished. HEAD: normocephalic, atraumatic. EYES: PERRLA/EOMI, conjunctivae clear. NOSE: Normal no drainage EARS:TMS clear with good light reflex. THROAT: Pharynx clear, no exudate. NECK: Supple. No adenopathy, no masses. RESPIRATORY: Airway patent, respirations nonlabored. Clear to auscultation bilaterally, no rales, rhonchi, wheezing. CARDIOVASCULAR: Regular rate and rhythm without murmurs rubs or gallops. ABDOMINAL: Soft, nontender, nondistended, normal bowel sounds MUSCULOSKELETAL: Moves all extremities. Strength/ROM intact, No edema, No calf tenderness. NEURO: Alert. Cranial nerves II through XII intact. Grossly intact SKIN: Warm, dry. Normal Color Course Vital Signs Vital signs: Vital Signs Temperature 98.1 F 07/21/24 01:41 Pulse Rate 113 H 07/21/24 01:41 Respiratory Rate 20 07/21/24 01:41 Blood Pressure 166/98 H 07/21/24 01:41 Pulse Oximetry 97 07/21/24 01:41 Oxygen Delivery Room Air 07/21/24 01:41 Temperature 98.1 F 07/21/24 01:41 Pulse Rate 87 07/21/24 04:38 Respiratory Rate 19 07/21/24 04:38 Blood Pressure 148/87 H 07/21/24 04:38 Pulse Oximetry 95 07/21/24 04:38 Oxygen Delivery Room Air 07/21/24 01:41 Medical Decision Making [facility] Narrative Medical decision making narrative: 64-year-old male present to the emergency department for evaluation for left flank pain. Bedside bladder scan only showed 7 mL of urine. Patient reports he last urinated approximately 10:00 p.m.. Patient was treated with a L of IV fluid. Patient declined any additional medications for pain control. Patient was afebrile but does have a leukocytosis of 15.2 hemoglobin of 14.7. INR of 1.0. No significant abnormalities on the patient's CMP occluding normal kidney function. UA was positive for blood but negative for infection. CT abdomen pelvis shows some left hydronephrosis with a 3-4 mm calculus in the distal left ureter. Differential Diagnosis Differential Diagnosis: Colitis, diverticulitis, urinary tract infection, ureteral calculi Vital Signs Vital Signs: Vital Signs Temperature 98.1 F 07/21/24 01:41 Pulse Rate 113 H 07/21/24 01:41 Respiratory Rate 20 07/21/24 01:41 Blood Pressure 166/98 H 07/21/24 01:41 Pulse Oximetry 97 07/21/24 01:41 Oxygen Delivery Room Air 07/21/24 01:41 Temperature 98.1 F 07/21/24 01:41 Pulse Rate 87 07/21/24 04:38 Respiratory Rate 19 07/21/24 04:38 Blood Pressure 148/87 H 07/21/24 04:38 Pulse Oximetry 95 07/21/24 04:38 Oxygen Delivery Room Air 07/21/24 01:41 Lab Data Lab results reviewed: Yes I reviewed the patient's lab results. 07/21/24 01:50 07/21/24 01:50 Labs: Lab Results 07/21/24 07/21/24 Range/Units 01:50 03:09 WBC 15.2 H (4.5-10.0) K/mm3 RBC 4.65 (4.6-6.20) M/mm3 Hgb 14.7 (14.0-18.0) g/dL Hct 43.9 (42.0-52.0) % MCV 94.4 (80-100) fl MCH 31.6 (26-34) pg MCHC 33.5 (32-36) g/dl RDW 13.1 (11.5-14.5) % Plt Count 277 (150-375) k/mm3 MPV 9.9 (7.4-10.4) fl Immature Gran % (Auto) 0.3 (0-0.5) % Neut % (Auto) 90.5 H (45.5-73.1) % Lymph % (Auto) 5.6 L (18.3-44.2) % [place] % (Auto) 3.2 (2.6-8.5) % Eos % (Auto) 0.1 (0-4.4) % Baso % (Auto) 0.3 (0.2-1.2) % Lymph # (Auto) 0.86 L (0.9-3.2) K/mm3 [place] # (Auto) 0.5 (0.1-0.6) K/mm3 Eos # (Auto) 0.0 (0-0.3) K/mm3 Baso # (Auto) 0.0 (0.0-0.1) K/mm3 Abs Immat Gran (auto) 0.05 H (0.00-0.031) K/mm3 Absolute Neuts (auto) 13.8 H (1.3-6.7) K/mm3 Absolute Nucleated RBC 0.000 (0.0-0.012) K/mm3 Nucleated RBC % 0.0 (0.0-0.2) % PT 13.5 (11.1-14.7) Seconds INR 1.0 APTT 28.3 (22.3-36.8) Seconds Sodium 135 L (137-145) mmol/L Potassium 4.0 (3.4-5.0) mmol/L Chloride 102 (98-107) mmol/L Carbon Dioxide 20 L (22-30) mmol/L Anion Gap 13 H (4-12) mmol/L BUN 17 (9-20) mg/dL Creatinine 0.96 (0.7-1.3) mg/dL Estim Creat Clear Calc 86 ml/min Estimated GFR > 60 (59 - ) Glucose 166 H (65-110) mg/dL Calcium 9.2 (8.4-10.2) mg/dL Total Bilirubin 0.6 (0.2-1.3) mg/dL AST 38 (17-59) U/L ALT 45 (6-50) U/L Alkaline Phosphatase 62 (38-126) U/L Total Protein 8.0 (6.3-8.2) g/dL Albumin 4.7 (3.5-5.1) g/dL Urine Color Yellow (Yellow) Urine Appearance Clear (Clear) Urine pH 6.0 (5.0-9.0) Ur Specific [place] 1.008 (1.001-1.035) Urine Protein Negative (Negative) mg/dL Urine Glucose (UA) Negative (Negative) mg/dL Urine Ketones Negative (Negative) mg/dL Ur Blood (Man) 2+ H (Negative) Urine Nitrate Negative (Negative) Urine Bilirubin Negative (Negative) Urine Urobilinogen 0.2 (<2.0) mg/dL Add Ur Microanalysis Reviewed Leukocyte Esterase Rfl 1+ H (Negative) MIRANDA/UL Urine RBC 6-10 H (0-2) /hpf Urine WBC 0-5 (0-3) /hpf Ur Squamous Epith Cells None seen (Few) /hpf Urine Bacteria None seen /hpf Urine Casts 0-2 Imaging Data Radiologist's impression: Impressions Abdomen/Pelvis CT 07/21/24 06:33 Impression: 4 mm distal left ureteral stone with mild left hydroureteronephrosis and perinephric stranding. Cholelithiasis. Diffuse hepatic steatosis. Enlarged prostate gland. Discharge Plan Discharge Clinical Impression: Calculi, ureter Patient Disposition: Home Condition: Stable Instructions: Antibiotic Form, Kidney Stones (ED), How to Strain Your Urine (ED), Flank Pain (ED) Additional Instructions: Strain your urine as instructed. Ibuprofen for pain control. Rudyard as needed for additional pain control. Flomax as directed to help you pass the stone. Have close follow-up with Urology. If you have any worsening symptoms then please call or return to the emergency department. Patient Language: Danish Prescriptions: New tamsulosin [Flomax] 0.4 mg capsule 0.4 mg PO DAILY 14 Days Qty: 14 0RF hydrocodone-acetaminophen 5-325 mg tablet 1 tablet PO Q12H PRN (Reason: pain) Qty: 14 0RF No Action acetaminophen 500 mg capsule 1,000 mg PO DAILY multivitamin Tablet 1 tablet PO DAILY ascorbic acid (vitamin C) 1,000 mg tablet 1 g PO DAILY aspirin 325 mg tablet,delayed release (DR/EC) 325 mg PO DAILY cholecalciferol (vitamin D3) 10 mcg (400 unit) capsule 10 mcg PO DAILY lisinopril 10 mg tablet See Rx Instructions .ROUTE .COMPLEX Qty: 90 1RF Dose Instruction: TAKE 1 TABLET BY MOUTH EVERY DAY Rx Instructions: TAKE 1 TABLET BY MOUTH EVERY DAY Follow-up/Referrals: Todd Talley MD [Physician] - Emelina Wetzel APRN [Primary Care Provider] -
[2024-07-21] MEDS: LACTATED RINGERS 1,000 ML 999 ML IV CONT (01:53)
[2024-07-21 01:55] LABS: Basophils Percent Auto 0.3 % (0.2-1.2); Eosinophils Percent Auto 0.1 % (0-4.4); Hematocrit 43.9 % (42.0-52.0); Hemoglobin 14.7 g/dL (14.0-18.0); Immature Granulocyte Absolute 0.05 K/mm3 (0.00-0.031); Immature Granulocyte Percent A 0.3 % (0-0.5); Lymphocytes Absolute Auto 0.86 K/mm3 (0.9-3.2); Lymphocytes Percent Auto 5.6 % (18.3-44.2); Mean Corpuscular HGB Conc 33.5 g/dl (32-36); Mean Corpuscular Hemoglobin 31.6 pg (26-34); Mean Corpuscular Volume 94.4 fl (80-100); Mean Platelet Volume 9.9 fl (7.4-10.4); Monocytes Absolute Auto 0.5 K/mm3 (0.1-0.6); Monocytes Percent Auto 3.2 % (2.6-8.5); Neutrophils Absolute Auto 13.8 K/mm3 (1.3-6.7); Neutrophils Percent Auto 90.5 % (45.5-73.1); Platelet Count Result 277 k/mm3 (150-375); Red Blood Count 4.65 M/mm3 (4.6-6.20); Red Cell Distribution Width 13.1 % (11.5-14.5); White Blood Count 15.2 K/mm3 (4.5-10.0)
[2024-07-21 02:17] LABS: Prothrombin Time 13.5 Seconds (11.1-14.7)
[2024-07-21 02:18] LABS: Partial Thromboplastin Time 28.3 Seconds (22.3-36.8)
[2024-07-21 02:21] LABS: Alanine Aminotransferase 45 U/L (6-50); Albumin Level 4.7 g/dL (3.5-5.1); Alkaline Phosphatase 62 U/L (38-126); Anion Gap 13 mmol/L (4-12); Aspartate Amino Transferase 38 U/L (17-59); Bilirubin,Total 0.6 mg/dL (0.2-1.3); Blood Urea Nitrogen 17 mg/dL (9-20); Calcium 9.2 mg/dL (8.4-10.2); Carbon Dioxide 20 mmol/L (22-30); Chloride 102 mmol/L (98-107); Estimated CRCL calculation 86 ml/min; Estimated Glomerular Filt Rate > 60; Glucose 166 mg/dL (65-110); Sodium 135 mmol/L (137-145)
[2024-07-21 03:11] VITALS: BP 164/92; PULSE 87; PULSE 95; RESP 19; O2SAT 97
[2024-07-21 03:28] LABS: Add Urine Microscopic? YES; Appearance Urine Clear (Clear); Bacteria Urine None Seen /hpf; Bilirubin Urine Negative (Negative); Blood Urine 2+ (Negative); Color Urine Yellow (Yellow); Glucose Urine UA Negative (Negative); Ketones Urine Negative (Negative); Leukocyte Esterase Ur 1+ LEU/UL (Negative); Need Manual Microscopic Reviewed; Nitrate Urine Negative (Negative); Non Pathogenic Casts 0-2; Protein Urine Negative (Negative); Specific Grav Ur 1.008 (1.001-1.035); Squamous Epithelial Cell Urine None Seen /hpf (Few); Urobilinogen Urine 0.2 mg/dL (<2.0); WBC Urine 0-5 /hpf (0-3)
[2024-07-21] MEDS: TAMSULOSIN HCL 0.4 MG CAPSULE PO (04:35)
[2024-07-21 04:38] VITALS: BP 148/87; PULSE 87; RESP 19; O2SAT 95
== END 2024-07-21 04:53 | disposition home or self-care (01) ==
PROVIDERS: Emergency Provider Emergency Medicine; PCP Nurse Practitioner Family
DX: N20.1 Calculus of ureter (principal); Z79.82 Long term (current) use of aspirin; I10 Essential (primary) hypertension; F17.210 Nicotine dependence, cigarettes, uncomplicated
CPT/HCPCS: 36415; 74176; 80053; 81001; 85025; 85610; 85730; 87086; 96360; 99284; A9270; J7120

== ENCOUNTER 2024-07-23 22:23 | Observation (INO) | payer OTHER, SELFPAY ==
--- NOTE | ~2024-07-23 | CT_ITS ---
Non-contrast CT scan of the Abdomen and Pelvis Clinical indication: Kidney stone Technique: 2.5 mm axial scans were obtained through the abdomen and pelvis without intravenous or or al contrast. Dose reduction technique was used on this scan by utilizing automated exposure control a nd iterative reconstruction technique. The dose-length product (DLP) was 1493.47 mGy-cm. COMPARISON: 07/21/2024 Findings: Images through the lung bases reveal no abnormalities. 5 mm stone at the very distal left ureter is essentially unchanged in position from prior exam. Stabl e degree of left hydroureteronephrosis to the level of the stone. No right renal or right ureteral st one. No right hydronephrosis. The liver, spleen, pancreas, and adrenals appear normal. Cholelithiasis noted. There are atherosclero tic calcifications of the aorta. . There is no evidence of bowel obstruction. Images through the pelvis were performed. There is no evidence of ascites or lymphadenopathy. Urinary bladder otherwise unremarkable. No pelvic mass seen. Prostate gland is enlarged. Impression: Stable 5 mm distal left ureteral stone with left hydroureteronephrosis. Cholelithiasis. Reviewed, dictated and finalized at location . Impression: Stable 5 mm distal left ureteral stone with left hydroureteronephrosis. Cholelithiasis.
--- NOTE | ~2024-07-23 | XR_ITS ---
INTRAOPERATIVE FLUOROSCOPY: CLINICAL HISTORY: 64 years old Male; LEFT STONE EXTRACTION PROCEDURE COMMENTS: Limited intraoperative fluoroscopy of the lower abdomen was performed. CUMULATIVE DOSE: 55 mGy FLUOROSCOPY TIME: 87 seconds FINDINGS/IMPRESSION: Please refer to operative note for further details. Reviewed, dictated and finalized at location A.
--- NOTE | ~2024-07-23 | XR_ITS ---
Supine and upright views of the abdomen Clinical history: Kidney stone Findings: Bowel gas pattern is nonspecific. No evidence for obstruction or free air. No abnormal mass lesion or calcification is seen. Osseous structures are intact. Impression: No definite stone seen radiographically. Reviewed, dictated and finalized at [facility]. Impression: No definite stone seen radiographically.
[2024-07-23 22:27] VITALS: BP 162/92; PULSE 100; RESP 22; TEMP 37.2; O2SAT 98
[2024-07-24] VITALS (13 sets, daily range): BP systolic 103–180; BP diastolic 58–128; PULSE 62–108; RESP 15–22; TEMP 36.2–36.9; O2SAT 94–100; BMI 36.9
--- NOTE | 2024-07-24 00:15 | ED.MALEGU ---
HPI - Male Genitourinary General Chief complaint: Urogenital-Male <Amber Vasquez APRN - Last Filed: 07/25/24 03:23> Stated complaint: L Flank pain-diag with kidney stone <Amber Vasquez APRN - Last Filed: 07/25/24 03:23> Time Seen by Provider: 07/23/24 23:39 <Amber Vasquez APRN - Last Filed: 07/25/24 03:23> History of Present Illness HPI Narrative: Patient is 64-year-old male who presents to the ER with worsening left flank pain. He reports he was in the ER Sunday night and was diagnosed with a kidney stone. Patient reports he went home and has been taking Flomax and hydrocodone for pain control. Today his pain worsened and he feels as though he is not urinating as much as usual. Patient denies any abdominal pain, recent fevers or recent injury He does endorses hematuria. Patient endorses a history of atrial fibrillation, for which he takes aspirin. He also has a history of high blood pressure. <Amber Vasquez APRN - Last Filed: 07/25/24 03:23> Related Data Home medications: Home Medications ?Medication ?Instructions ?Recorded ?Confirmed ?Last Taken ?Type ascorbic acid (vitamin C) 1,000 mg 1 g PO DAILY 12/08/20 07/24/24 06/04/24 History tablet multivitamin 1 tablet PO DAILY 12/08/20 07/24/24 06/04/24 History cholecalciferol (vitamin D3) 10 10 mcg PO DAILY 06/23/22 07/24/24 06/04/24 History mcg (400 unit) capsule aspirin 325 mg tablet,delayed 325 mg PO DAILY 01/11/24 07/24/24 07/23/24 History release <Amber Vasquez APRN - Last Filed: 07/25/24 03:23> Allergies/Adverse reactions: Allergies Allergy/AdvReac Type Severity Reaction Status Date / Time No Known Allergies Allergy Verified 07/23/24 22:24 <Amber Vasquez APRN - Last Filed: 07/25/24 03:23> Review of Systems Review of Systems: All systems reviewed & are unremarkable except as noted in HPI and below <Amber Vasquez APRN - Last Filed: 07/25/24 03:23> PMFSH Past Medical History Medical History: Medical History BMI 31.0-31.9,adult Screen for colon cancer BPH (benign prostatic hyperplasia) Hypertension Hamstring tear Broken bones Kidney stone <Amber Vasquez APRN - Last Filed: 07/25/24 03:23> Surgical History Surgical History: Surgical History History of surgical removal of meniscus of knee <Amber Vasquez APRN - Last Filed: 07/25/24 03:23> Family History Family History: Family History Father Cancer Hypertension Heart problem Throat cancer Mother COPD (chronic obstructive pulmonary disease) Sibling Hypertension Cerebrovascular accident <Amber Vasquez APRN - Last Filed: 07/25/24 03:23> Social History Social History: Social History Smoking packs per day: 0.25 Smoking cigarettes per day: 5.0 Years smoked: 44 Smoking pack-years: 11.00 Smoking status: Current every day smoker Tobacco type: cigarettes Second hand tobacco smoke exposure: Yes Additional smoking assessment comments: 1/2 pack a day Alcohol intake: never Alcohol use details: rarely Substance use: never Substance use type: does not use Do You Feel Safe in your Home?: Yes Lack of Transportation: No Lack of Food: Never True Current Housing: I Have Housing Concerned About Future Housing: No Difficulty Paying Gas/Electric Bills: No Difficulty Paying for Meds: No Currently Unemployed: No Education: High School Diploma/GED Difficulty w/ Childcare or Family Care: No Living arrangements: alone Occupation/Education: occupation Gender identity (if verbalized by the patient): Male Spiritual care concerns: No <Amber Vasquez APRN - Last Filed: 07/25/24 03:23> Exam Narrative: GENERAL: Ill-appearing, well-nourished, non-toxic, in acute distress d/t pain. HEAD: Normocephalic, atraumatic. NECK: Supple. No adenopathy, no masses. RESPIRATORY: Airway patent, respirations nonlabored. Clear to auscultation bilaterally, no rales, rhonchi, wheezing. CARDIOVASCULAR: Regular rate and rhythm without murmurs, rubs, or gallops. Peripheral pulses 2+ and equal bilaterally. +CVA tenderness L side ABDOMINAL: Soft, nontender, nondistended, no hepatosplenomegaly. Normoactive BS. MUSCULOSKELETAL: Moves all extremities. Strength/ROM intact without gross deformities. SKIN: Warm, dry, normal color. No rashes. NEURO: A&O X3. Speech clear. Cranial nerves II-XII intact. No ataxic movements. PSYCHIATRIC: Appropriate mood and affect. Normal interaction. <Amber Vasquez APRN - Last Filed: 07/25/24 03:23> Course Reevaluation(s) Reevaluation #1: Patient presenting with persistent pain from kidney stone, I did review CT and on my independent interpretation there is a left 4 mm UVJ stone. Patient received multiple rounds of pain medication including Toradol and Dilaudid here. Patient really would like to have this taken care of as soon as possible, discussed with urologist who was agreeable to trying to arrange for or tomorrow, discussed with hospitalist for admission. <Rasheeda Thompson MD - Last Filed: 07/24/24 03:09> Vital Signs Vital signs: Vital Signs Temperature 37.2 C 07/23/24 22:27 Pulse Rate 100 07/23/24 22:27 Respiratory Rate 22 H 07/23/24 22:27 Blood Pressure 162/92 H 07/23/24 22:27 Pulse Oximetry 98 07/23/24 22:27 Oxygen Delivery Room Air 07/23/24 22:27 Temperature 36.6 C 07/25/24 00:00 Pulse Rate 108 H 07/25/24 00:00 Respiratory Rate 18 07/25/24 00:00 Blood Pressure 119/70 07/25/24 00:00 Pulse Oximetry 97 07/25/24 00:00 Oxygen Delivery Room Air 07/24/24 20:50 Oxygen Flow Rate 8 07/24/24 20:00 <Amber Vasquez APRN - Last Filed: 07/25/24 03:23> Vital Signs Temperature 37.2 C 07/23/24 22:27 Pulse Rate 100 07/23/24 22:27 Respiratory Rate 22 H 07/23/24 22:27 Blood Pressure 162/92 H 07/23/24 22:27 Pulse Oximetry 98 07/23/24 22:27 Oxygen Delivery Room Air 07/23/24 22:27 Temperature 36.6 C 07/25/24 00:00 Pulse Rate 108 H 07/25/24 00:00 Respiratory Rate 18 07/25/24 00:00 Blood Pressure 119/70 07/25/24 00:00 Pulse Oximetry 97 07/25/24 00:00 Oxygen Delivery Room Air 07/24/24 20:50 Oxygen Flow Rate 8 07/24/24 20:00 <Rasheeda Thompson MD - Last Filed: 07/24/24 03:09> MDM - Male Genitourinary MDM Narrative Medical decision making narrative: Patient is 64-year-old male who presents to the ER with worsening left flank pain. He reports he was in the ER Sunday night and was diagnosed with a kidney stone. Patient reports he went home and has been taking Flomax and hydrocodone for pain control. Today his pain worsened and he feels as though he is not urinating as much as usual. Patient denies any abdominal pain, recent fevers or recent injury He does endorses hematuria. Patient endorses a history of atrial fibrillation, for which he takes aspirin. He also has a history of high blood pressure. Labs Ordered: CBC, CMP, UA Imaging Ordered: KUB Medications Ordered: 1 L normal saline IV bolus, Toradol 15 mg IV, Dilaudid 0.5 mg IV Results: Patient's KUB indicates no suspicious radiopaque densities and the gas pattern is unremarkable. Pt's CT scan on 07/20/2024, indicates 4 mm distal left ureteral stone with mild left hydroureteronephrosis and perinephric stranding. Diagnosis: L ureteral kidney stone Consults: urology Patient Education/Shared MDM: 0145- Pt reports he is feeling some relief following pain medication administration and describes his pain as pressure at this time. 0155- Pt was bladder scanned and only has approximately 120ml of urine in his bladder. He has been unable to urinate much so a repeat CT scan will be performed to ensure pt does not have worsening hydronephrosis. 0245- Spoke with urology who agreed to consult pt. 0300- Results of lab work and imaging shared with patient. He endorses improvement of symptoms following medication administration. He verbalizes understanding and is in agreement for hospital admission. Care signed out to Dr. Thompson. <Amber Vasquez, EPIC KALEIDOSCOPE ANALYST - Last Filed: 07/25/24 03:23> Differential Diagnosis Differential diagnosis: Likely urinary tract infection, acute retention of urine and other ( Left kidney stone, hydronephrosis) <Amber Vasquez EPIC KALEIDOSCOPE ANALYST - Last Filed: 07/25/24 03:23> Lab Data Result diagrams: 07/24/24 00:27 07/24/24 00:26 <Amber Vasquez APRN - Last Filed: 07/25/24 03:23> Labs: Lab Results 07/24/24 07/24/24 07/24/24 Range/Units 00:26 00:27 00:36 WBC 14.4 H (4.5-10.0) K/mm3 RBC 4.70 (4.6-6.20) M/mm3 Hgb 14.6 (14.0-18.0) g/dL Hct 44.8 (42.0-52.0) % MCV 95.3 (80-100) fl MCH 31.1 (26-34) pg MCHC 32.6 (32-36) g/dl RDW 13.1 (11.5-14.5) % Plt Count 280 (150-375) k/mm3 MPV 10.2 (7.4-10.4) fl Immature Gran % (Auto) 0.5 (0-0.5) % Neut % (Auto) 82.8 H (45.5-73.1) % Lymph % (Auto) 9.2 L (18.3-44.2) % [place] % (Auto) 6.7 (2.6-8.5) % Eos % (Auto) 0.4 (0-4.4) % Baso % (Auto) 0.4 (0.2-1.2) % Lymph # (Auto) 1.33 (0.9-3.2) K/mm3 [place] # (Auto) 1.0 H (0.1-0.6) K/mm3 Eos # (Auto) 0.1 (0-0.3) K/mm3 Baso # (Auto) 0.1 (0.0-0.1) K/mm3 Abs Immat Gran (auto) 0.07 H (0.00-0.031) K/mm3 Absolute Neuts (auto) 11.9 H (1.3-6.7) K/mm3 Absolute Nucleated RBC 0.000 (0.0-0.012) K/mm3 Nucleated RBC % 0.0 (0.0-0.2) % Sodium 139 (137-145) mmol/L Potassium 3.8 (3.4-5.0) mmol/L Chloride 106 (98-107) mmol/L Carbon Dioxide 20 L (22-30) mmol/L Anion Gap 13 H (4-12) mmol/L BUN 18 (9-20) mg/dL Creatinine 1.12 (0.7-1.3) mg/dL Estim Creat Clear Calc 75 ml/min Estimated GFR > 60 (59 - ) Glucose 141 H (65-110) mg/dL Calcium 9.2 (8.4-10.2) mg/dL Total Bilirubin 0.8 (0.2-1.3) mg/dL AST 59 (17-59) U/L ALT 52 H (6-50) U/L Alkaline Phosphatase 66 (38-126) U/L Total Protein 8.0 (6.3-8.2) g/dL Albumin 4.6 (3.5-5.1) g/dL Urine Color Yellow (Yellow) Urine Appearance Clear (Clear) Urine pH 6.0 (5.0-9.0) Ur Specific [place] 1.021 (1.001-1.035) Urine Protein Trace (Negative) mg/dL Urine Glucose (UA) Negative (Negative) mg/dL Urine Ketones Trace H (Negative) mg/dL Ur Blood (Man) 3+ H (Negative) Urine Nitrate Negative (Negative) Urine Bilirubin Negative (Negative) Urine Urobilinogen 2.0 H (<2.0) mg/dL Leukocyte Esterase Rfl Negative (Negative) MIRANDA/UL Urine RBC >100 H (0-2) /hpf Urine WBC 0-5 (0-3) /hpf Ur Squamous Epith Cells None seen (Few) /hpf Urine Bacteria None seen /hpf Urine Casts 0-2 <Amber Vasquez, EPIC KALEIDOSCOPE ANALYST - Last Filed: 07/25/24 03:23> Lab Results 07/24/24 07/24/24 07/24/24 Range/Units 00:26 00:27 00:36 WBC 14.4 H (4.5-10.0) K/mm3 RBC 4.70 (4.6-6.20) M/mm3 Hgb 14.6 (14.0-18.0) g/dL Hct 44.8 (42.0-52.0) % MCV 95.3 (80-100) fl MCH 31.1 (26-34) pg MCHC 32.6 (32-36) g/dl RDW 13.1 (11.5-14.5) % Plt Count 280 (150-375) k/mm3 MPV 10.2 (7.4-10.4) fl Immature Gran % (Auto) 0.5 (0-0.5) % Neut % (Auto) 82.8 H (45.5-73.1) % Lymph % (Auto) 9.2 L (18.3-44.2) % [place] % (Auto) 6.7 (2.6-8.5) % Eos % (Auto) 0.4 (0-4.4) % Baso % (Auto) 0.4 (0.2-1.2) % Lymph # (Auto) 1.33 (0.9-3.2) K/mm3 [place] # (Auto) 1.0 H (0.1-0.6) K/mm3 Eos # (Auto) 0.1 (0-0.3) K/mm3 Baso # (Auto) 0.1 (0.0-0.1) K/mm3 Abs Immat Gran (auto) 0.07 H (0.00-0.031) K/mm3 Absolute Neuts (auto) 11.9 H (1.3-6.7) K/mm3 Absolute Nucleated RBC 0.000 (0.0-0.012) K/mm3 Nucleated RBC % 0.0 (0.0-0.2) % Sodium 139 (137-145) mmol/L Potassium 3.8 (3.4-5.0) mmol/L Chloride 106 (98-107) mmol/L Carbon Dioxide 20 L (22-30) mmol/L Anion Gap 13 H (4-12) mmol/L BUN 18 (9-20) mg/dL Creatinine 1.12 (0.7-1.3) mg/dL Estim Creat Clear Calc 75 ml/min Estimated GFR > 60 (59 - ) Glucose 141 H (65-110) mg/dL Calcium 9.2 (8.4-10.2) mg/dL Total Bilirubin 0.8 (0.2-1.3) mg/dL AST 59 (17-59) U/L ALT 52 H (6-50) U/L Alkaline Phosphatase 66 (38-126) U/L Total Protein 8.0 (6.3-8.2) g/dL Albumin 4.6 (3.5-5.1) g/dL Urine Color Yellow (Yellow) Urine Appearance Clear (Clear) Urine pH 6.0 (5.0-9.0) Ur Specific [place] 1.021 (1.001-1.035) Urine Protein Trace (Negative) mg/dL Urine Glucose (UA) Negative (Negative) mg/dL Urine Ketones Trace H (Negative) mg/dL Ur Blood (Man) 3+ H (Negative) Urine Nitrate Negative (Negative) Urine Bilirubin Negative (Negative) Urine Urobilinogen 2.0 H (<2.0) mg/dL Leukocyte Esterase Rfl Negative (Negative) MIRANDA/UL Urine RBC >100 H (0-2) /hpf Urine WBC 0-5 (0-3) /hpf Ur Squamous Epith Cells None seen (Few) /hpf Urine Bacteria None seen /hpf Urine Casts 0-2 <Rasheeda Thompson MD - Last Filed: 07/24/24 03:09> Discharge Plan Discharge Clinical Impression: Kidney stone <Amber Vasquez APRN - Last Filed: 07/25/24 03:23> Patient Disposition: Still a Patient <Amber Vasquez APRN - Last Filed: 07/25/24 03:23> Condition: Stable <Amber Vasquez APRN - Last Filed: 07/25/24 03:23>
[2024-07-24 00:37] LABS: Basophils Absolute Auto 0.1 K/mm3 (0.0-0.1); Basophils Percent Auto 0.4 % (0.2-1.2); Eosinophils Absolute Auto 0.1 K/mm3 (0-0.3); Eosinophils Percent Auto 0.4 % (0-4.4); Hematocrit 44.8 % (42.0-52.0); Hemoglobin 14.6 g/dL (14.0-18.0); Immature Granulocyte Absolute 0.07 K/mm3 (0.00-0.031); Immature Granulocyte Percent A 0.5 % (0-0.5); Lymphocytes Absolute Auto 1.33 K/mm3 (0.9-3.2); Lymphocytes Percent Auto 9.2 % (18.3-44.2); Mean Corpuscular HGB Conc 32.6 g/dl (32-36); Mean Corpuscular Hemoglobin 31.1 pg (26-34); Mean Corpuscular Volume 95.3 fl (80-100); Mean Platelet Volume 10.2 fl (7.4-10.4); Monocytes Percent Auto 6.7 % (2.6-8.5); Neutrophils Absolute Auto 11.9 K/mm3 (1.3-6.7); Neutrophils Percent Auto 82.8 % (45.5-73.1); Platelet Count Result 280 k/mm3 (150-375); Red Cell Distribution Width 13.1 % (11.5-14.5); White Blood Count 14.4 K/mm3 (4.5-10.0)
[2024-07-24 00:45] LABS: Add Urine Microscopic? YES; Appearance Urine Clear (Clear); Bacteria Urine None Seen /hpf; Bilirubin Urine Negative (Negative); Blood Urine 3+ (Negative); Color Urine Yellow (Yellow); Glucose Urine UA Negative (Negative); Ketones Urine Trace mg/dL (Negative); Leukocyte Esterase Ur Negative LEU/UL (Negative); Nitrate Urine Negative (Negative); Non Pathogenic Casts 0-2; Protein Urine Trace mg/dL (Negative); RBC Urine >100 /hpf (0-2); Specific Grav Ur 1.021 (1.001-1.035); Squamous Epithelial Cell Urine None Seen /hpf (Few); WBC Urine 0-5 /hpf (0-3)
[2024-07-24 00:47] LABS: Alanine Aminotransferase 52 U/L (6-50); Albumin Level 4.6 g/dL (3.5-5.1); Alkaline Phosphatase 66 U/L (38-126); Anion Gap 13 mmol/L (4-12); Aspartate Amino Transferase 59 U/L (17-59); Bilirubin,Total 0.8 mg/dL (0.2-1.3); Blood Urea Nitrogen 18 mg/dL (9-20); Calcium 9.2 mg/dL (8.4-10.2); Carbon Dioxide 20 mmol/L (22-30); Chloride 106 mmol/L (98-107); Estimated CRCL calculation 75 ml/min; Estimated Glomerular Filt Rate > 60; Glucose 141 mg/dL (65-110); Potassium 3.8 mmol/L (3.4-5.0); Sodium 139 mmol/L (137-145)
[2024-07-24] MEDS: HYDROmorphone HCL INJ (*CRX) 2 MG/ML VIAL 0.5 MG IV PUSH (01:19)
[2024-07-24] MEDS: SODIUM CHLORIDE 0.9% IV 1,000 ML 999 ML IV CONT ×2 (01:19→03:06)
[2024-07-24] MEDS: KETOROLAC 15 MG/ML VIAL (*BKC) IV PUSH (01:19)
[2024-07-24] MEDS: TAMSULOSIN HCL 0.4 MG CAPSULE PO (03:06)
--- NOTE | 2024-07-24 04:45 | ADMGEN ---
This patient, Jasper Moore, was admitted to Medical Room 344-01. Patient/family oriented to hospital policies and general routines including ID bracelet, bed and alarms, visiting hours, pain management, procedures, bathroom and other care routines, personal items, smoking policy, room service/diet, and visiting hours. Information on how to activate the Rapid Response Team has been discussed. Patient/Family are encouraged to report perceived risks to care and to ask questions if they do not understand what they are told or what they should do.
--- NOTE | 2024-07-24 06:34 | P.CONUR_ITS ---
Assessment and Plan Assessment and plan (1) Left ureteral stone: Code(s): N20.1 - Calculus of ureter Status: Acute Assessment and Plan: * Cystoscopy, left ureteroscopy with stone extraction, possible laser lithotripsy, retrograde pyelogram and stent placement Urology Consult Note HPI Date Seen: 07/24/24 Requesting Physician: Rachel Yin DO Primary Care Provider: Emelina Wetzel APRN Consult Narrative Narrative: Jasper Moore is a 64 year old male without prior history of urolithiasis but has been in the ER twice this week with pain from a 4 mm left distal ureteral calculus. He has had nausea but no fevers chills or gross hematuria. After discussion of options he has elected for endoscopic stone extraction. He is aware the risk including, but not limited to, ureteral injury, ureteral stricture, need for additional procedures, possible need for stent placement with stent irritation symptoms. Review of Systems 2 Review of Systems: All systems reviewed & are unremarkable except as noted in HPI and below PMFSH Past Medical History Medical History BMI 31.0-31.9,adult Screen for colon cancer BPH (benign prostatic hyperplasia) Hypertension Hamstring tear Broken bones Kidney stone Surgical History Surgical History History of surgical removal of meniscus of knee Family History Family History Father Cancer Hypertension Heart problem Throat cancer Mother COPD (chronic obstructive pulmonary disease) Sibling Hypertension Cerebrovascular accident Social History Social History Smoking packs per day: 0.25 Smoking cigarettes per day: 5.0 Years smoked: 44 Smoking pack-years: 11.00 Smoking status: Current every day smoker Tobacco type: cigarettes Second hand tobacco smoke exposure: Yes Additional smoking assessment comments: 1/2 pack a day Alcohol intake: never Alcohol use details: rarely Substance use: never Substance use type: does not use Do You Feel Safe in your Home?: Yes Lack of Transportation: No Lack of Food: Never True Current Housing: I Have Housing Concerned About Future Housing: No Difficulty Paying Gas/Electric Bills: No Difficulty Paying for Meds: No Currently Unemployed: No Education: High School Diploma/GED Difficulty w/ Childcare or Family Care: No Living arrangements: alone Occupation/Education: occupation Gender identity (if verbalized by the patient): Male Spiritual care concerns: No Meds Home Medications and Allergies Home Medications ?Medication ?Instructions ?Recorded ?Confirmed ?Type ascorbic acid (vitamin C) 1,000 mg 1 g PO DAILY 12/08/20 07/24/24 History tablet multivitamin 1 tablet PO DAILY 12/08/20 07/24/24 History cholecalciferol (vitamin D3) 10 10 mcg PO DAILY 06/23/22 07/24/24 History mcg (400 unit) capsule aspirin 325 mg tablet,delayed 325 mg PO DAILY 01/11/24 07/24/24 History release lisinopril 10 mg tablet See Rx Instructions .Route 01/28/24 07/24/24 Rx .COMPLEX #90 tabs hydrocodone 5 mg-acetaminophen 325 1 tablet PO Q12H PRN pain #14 tabs 07/21/24 07/24/24 Rx mg tablet tamsulosin 0.4 mg capsule (Flomax) 0.4 mg PO DAILY 14 days #14 caps 07/21/24 07/24/24 Rx Allergies Allergy/AdvReac Type Severity Reaction Status Date / Time No Known Allergies Allergy Verified 07/23/24 22:24 Vital Signs Vital Signs - 24 hr 07/23/24 22:27 07/24/24 01:25 07/24/24 03:18 Temperature 99.0 F Pulse Rate 100 92 86 Respiratory Rate 22 H 21 H 20 Blood Pressure 162/92 H 180/98 H 150/80 H Pulse Oximetry 98 100 95 Oxygen Delivery Room Air 07/24/24 04:12 07/24/24 05:30 Temperature 98.2 F Pulse Rate 88 85 Respiratory Rate 17 18 Blood Pressure 141/84 H 155/87 H Pulse Oximetry 96 100 Oxygen Delivery Exam 2 Const: General: no acute distress Resp: Effort & Inspection: normal respiratory effort GI: Inspection: non-distended GI Palp: No abdominal tenderness and No Guarding due to palpation present (GI) Auscultation: normal bowel sounds Results Labs 07/24/24 00:27 07/24/24 00:26 Labs: Short CBC 07/24/24 Range/Units 00:27 WBC 14.4 H (4.5-10.0) K/mm3 Hgb 14.6 (14.0-18.0) g/dL Hct 44.8 (42.0-52.0) % Plt Count 280 (150-375) k/mm3 BMP 07/24/24 00:26 Sodium 139 Potassium 3.8 Chloride 106 Carbon Dioxide 20 L BUN 18 Creatinine 1.12 Glucose 141 H Calcium 9.2 Liver Function 07/24/24 Range/Units 00:26 Total Bilirubin 0.8 (0.2-1.3) mg/dL AST 59 (17-59) U/L ALT 52 H (6-50) U/L Alkaline Phosphatase 66 (38-126) U/L Albumin 4.6 (3.5-5.1) g/dL Urine 07/24/24 Range/Units 00:36 Urine Color Yellow (Yellow) Urine Appearance Clear (Clear) Urine pH 6.0 (5.0-9.0) Ur Specific [place] 1.021 (1.001-1.035) Urine Protein Trace (Negative) mg/dL Urine Glucose (UA) Negative (Negative) mg/dL
--- NOTE | 2024-07-24 07:50 | P.HP_ITS ---
H&P: HPI History of Present Illness Date/Time: 07/24/24 07:50 Chief Complaint: Left flank pain Narrative: Patient is a 64-year-old male with a past medical history of hypertension, BPH, atrial fibrillation for which he takes aspirin and a kidney stone that passed its own 15 years ago who presents to the hospital with left lower flank pain that started Sunday night. He states that the pain started abruptly while in bed and radiated to his left groin. He subsequently went to the emergency department and was diagnosed with a kidney stone but was ultimately discharged home. Was discharged Flomax and hydrocodone He states that the pain initially subsided but got worse yesterday. Describes it as intermittent sharp pain that radiates from his left lower flank to his left groin. Endorses associated nausea without vomiting. Any fevers, chills, gross hematuria/dysuria. Any chest pain, shortness of breath, headaches, dizziness, or bowel changes. Urology has been consulted for possible cystoscopy ED workup: 99.0F, 92 HR, 21 RR, 180/98BP, 100% RA WBC 14.4, Hgb 14.6, Hct 44.8, Na 139, K 3.8, BUN 18, Cr 1.12, Plt 280, Glucose 141. UA: Trace ketones, 3+ blood, 2 urobilinogen, >100 urine RBC Abdomen x-ray: No definite stone seen radiographically Abdomen/pelvis CT: Stable 5 mm distal left ureteral stone with left hydroureteronephrosis .Stable 7 mm right middle lobe pulmonary nodule again noted Review of Systems Review of Systems: All systems reviewed & are unremarkable except as noted in HPI and below PMFSH Past Medical History Medical History BMI 31.0-31.9,adult Screen for colon cancer BPH (benign prostatic hyperplasia) Hypertension Hamstring tear Broken bones Kidney stone Surgical History Surgical History History of surgical removal of meniscus of knee Family History Family History Father Cancer Hypertension Heart problem Throat cancer Mother COPD (chronic obstructive pulmonary disease) Sibling Hypertension Cerebrovascular accident Social History Social History Smoking packs per day: 0.25 Smoking cigarettes per day: 5.0 Years smoked: 44 Smoking pack-years: 11.00 Smoking status: Current every day smoker Tobacco type: cigarettes Second hand tobacco smoke exposure: Yes Additional smoking assessment comments: 1/2 pack a day Alcohol intake: never Alcohol use details: rarely Substance use: never Substance use type: does not use Do You Feel Safe in your Home?: Yes Lack of Transportation: No Lack of Food: Never True Current Housing: I Have Housing Concerned About Future Housing: No Difficulty Paying Gas/Electric Bills: No Difficulty Paying for Meds: No Currently Unemployed: No Education: High School Diploma/GED Difficulty w/ Childcare or Family Care: No Living arrangements: alone Occupation/Education: occupation Gender identity (if verbalized by the patient): Male Spiritual care concerns: No Meds Home Medications and Allergies Home Medications ?Medication ?Instructions ?Recorded ?Confirmed ?Type ascorbic acid (vitamin C) 1,000 mg 1 g PO DAILY 12/08/20 07/24/24 History tablet multivitamin 1 tablet PO DAILY 12/08/20 07/24/24 History cholecalciferol (vitamin D3) 10 10 mcg PO DAILY 06/23/22 07/24/24 History mcg (400 unit) capsule aspirin 325 mg tablet,delayed 325 mg PO DAILY 01/11/24 07/24/24 History release lisinopril 10 mg tablet See Rx Instructions .Route 01/28/24 07/24/24 Rx .COMPLEX #90 tabs hydrocodone 5 mg-acetaminophen 325 1 tablet PO Q12H PRN pain #14 tabs 07/21/24 07/24/24 Rx mg tablet tamsulosin 0.4 mg capsule (Flomax) 0.4 mg PO DAILY 14 days #14 caps 07/21/24 07/24/24 Rx Allergies Allergy/AdvReac Type Severity Reaction Status Date / Time No Known Allergies Allergy Verified 07/23/24 22:24 Vital Signs Vital Signs - 24 hr 07/23/24 22:27 07/24/24 01:25 07/24/24 03:18 Temperature 99.0 F Pulse Rate 100 92 86 Respiratory Rate 22 H 21 H 20 Blood Pressure 162/92 H 180/98 H 150/80 H Pulse Oximetry 98 100 95 Oxygen Delivery Room Air 07/24/24 04:12 07/24/24 05:30 Temperature 98.2 F Pulse Rate 88 85 Respiratory Rate 17 18 Blood Pressure 141/84 H 155/87 H Pulse Oximetry 96 100 Oxygen Delivery Exam Narrative: Gen - well appearing male in no acute respiratory distress who is nontoxic- appearing lying semi recumbent in bed HEENT - normocephalic. Atraumatic. Pupils equal round and reactive. Extraocular motions intact. Nares patent. Oropharynx was clear. Moist mucous membranes. Tongue was midline. No facial asymmetry. Neck - neck was supple. 2+ carotid upstrokes without bruits. Chest - lungs are clear to auscultation bilaterally. No wheezes or crackles. CV - heart was regular rate and rhythm. S1-S2. No murmurs gallops or rubs. Abd -left CVA tenderness abdomen was soft. Nontender. Nondistended. Positive bowel sounds. No organomegaly or masses. Ext - no clubbing, cyanosis or edema. 2+ DP pulses bilaterally. Neuro - patient is alert and oriented x4. Strength is 5/5 in both upper and lower extremities. Cranial nerves 2-12 are intact. Speech is clear. Psych - normal mood and affect. Patient is pleasant and cooperative. Skin - warm and dry. No rashes noted. H&P: Results Labs Labs: Short CBC 07/24/24 Range/Units 00:27 WBC 14.4 H (4.5-10.0) K/mm3 Hgb 14.6 (14.0-18.0) g/dL Hct 44.8 (42.0-52.0) % Plt Count 280 (150-375) k/mm3 BMP 07/24/24 00:26 Sodium 139 Potassium 3.8 Chloride 106 Carbon Dioxide 20 L BUN 18 Creatinine 1.12 Glucose 141 H Calcium 9.2 Liver Function 07/24/24 Range/Units 00:26 Total Bilirubin 0.8 (0.2-1.3) mg/dL AST 59 (17-59) U/L ALT 52 H (6-50) U/L Alkaline Phosphatase 66 (38-126) U/L Albumin 4.6 (3.5-5.1) g/dL Urine 07/24/24 Range/Units 00:36 Urine Color Yellow (Yellow) Urine Appearance Clear (Clear) Urine pH 6.0 (5.0-9.0) Ur Specific [place] 1.021 (1.001-1.035) Urine Protein Trace (Negative) mg/dL Urine Glucose (UA) Negative (Negative) mg/dL Assessment and Plan Assessment and plan (1) Left ureteral stone: Code(s): N20.1 - Calculus of ureter Status: Acute Assessment and Plan: * Urgently seen 07/21 in ER for similar issue, ultimately discharged with Flomax and p.r.n. pain medication with instructions to follow-up with urology * CT abdomen/pelvis: Stable 5 mm distal left ureteral stone with left hydroureteronephrosis, cholelithiasis * Urology consulted, plan for cystoscopy, left ureteroscopy with stone extraction, possible laser lithotripsy, retrograde pyelogram and stent placement * Denies any hematuria, dysuria, or flank pain at this time * Likely to be taken for cystoscopy today * NPO * 1 time dose cefazolin (2) Atrial fibrillation: Qualifiers: Atrial fibrillation type: unspecified Qualified Code(s): I48.91 - Unspecified atrial fibrillation Code(s): I48.91 - Unspecified atrial fibrillation Status: Acute Assessment and Plan: * Daily aspirin, on hold at this time for possible procedure today (3) Hypertension: Qualifiers: Hypertension type: primary hypertension Qualified Code(s): I10 - Essential (primary) hypertension Code(s): I10 - Essential (primary) hypertension Status: Acute Assessment and Plan: * 163 * Hold at home medications for now Quality VTE Prophylaxis VTE prophylaxis: mechanical ordered
--- NOTE | 2024-07-24 17:24 | P.PNAN_ITS ---
Anes - Initial Pre Proc Eval Procedure: Operation Date: 07/24/24 18:00 Proposed Procedures p Cystoscopy, Left Ureteroscopy, Possible Left Stone Extraction, Possible Left Stent Placement, Possible Holmium Laser - Nadir Kahn MD Date/Time: 07/24/24 17:24 Surgeon: Gal Hoover PA-C Pre Op Diagnosis: UVJ stone Patient Data Age: 64 Gender: M Height: 1.78 m Weight: 116.8 kg Last Vital Signs Temp 97.8 F 07/24/24 14:00 Pulse 62 07/24/24 14:00 Resp 18 07/24/24 14:00 BP 163/83 H 07/24/24 14:00 Pulse Ox 99 07/24/24 14:00 O2 Del Method Room Air 07/23/24 22:27 Allergies Allergy/AdvReac Type Severity Reaction Status Date / Time No Known Allergies Allergy Verified 07/23/24 22:24 Home Medications ?Medication ?Instructions ?Recorded ?Confirmed ?Type ascorbic acid (vitamin C) 1,000 mg 1 g PO DAILY 12/08/20 07/24/24 History tablet multivitamin 1 tablet PO DAILY 12/08/20 07/24/24 History cholecalciferol (vitamin D3) 10 10 mcg PO DAILY 06/23/22 07/24/24 History mcg (400 unit) capsule aspirin 325 mg tablet,delayed 325 mg PO DAILY 01/11/24 07/24/24 History release lisinopril 10 mg tablet See Rx Instructions .Route 01/28/24 07/24/24 Rx .COMPLEX #90 tabs hydrocodone 5 mg-acetaminophen 325 1 tablet PO Q12H PRN pain #14 tabs 07/21/24 07/24/24 Rx mg tablet tamsulosin 0.4 mg capsule (Flomax) 0.4 mg PO DAILY 14 days #14 caps 07/21/24 07/24/24 Rx Laboratory Tests 07/24/24 07/24/24 07/24/24 00:26 00:27 00:36 WBC 14.4 H K/mm3 (4.5-10.0) RBC 4.70 M/mm3 (4.6-6.20) Hgb 14.6 g/dL (14.0-18.0) Hct 44.8 % (42.0-52.0) MCV 95.3 fl (80-100) MCH 31.1 pg (26-34) MCHC 32.6 g/dl (32-36) RDW 13.1 % (11.5-14.5) Plt Count 280 k/mm3 (150-375) MPV 10.2 fl (7.4-10.4) Immature Gran % (Auto) 0.5 % (0-0.5) Neut % (Auto) 82.8 H % (45.5-73.1) Lymph % (Auto) 9.2 L % (18.3-44.2) [place] % (Auto) 6.7 % (2.6-8.5) Eos % (Auto) 0.4 % (0-4.4) Baso % (Auto) 0.4 % (0.2-1.2) Lymph # (Auto) 1.33 K/mm3 (0.9-3.2) [place] # (Auto) 1.0 H K/mm3 (0.1-0.6) Eos # (Auto) 0.1 K/mm3 (0-0.3) Baso # (Auto) 0.1 K/mm3 (0.0-0.1) Abs Immat Gran (auto) 0.07 H K/mm3 (0.00-0.031) Absolute Neuts (auto) 11.9 H K/mm3 (1.3-6.7) Absolute Nucleated RBC 0.000 K/mm3 (0.0-0.012) Nucleated RBC % 0.0 % (0.0-0.2) Sodium 139 mmol/L (137-145) Potassium 3.8 mmol/L (3.4-5.0) Chloride 106 mmol/L (98-107) Carbon Dioxide 20 L mmol/L (22-30) Anion Gap 13 H mmol/L (4-12) BUN 18 mg/dL (9-20) Creatinine 1.12 mg/dL (0.7-1.3) Estim Creat Clear Calc 75 ml/min Estimated GFR > 60 (59 - ) Glucose 141 H mg/dL (65-110) Calcium 9.2 mg/dL (8.4-10.2) Total Bilirubin 0.8 mg/dL (0.2-1.3) AST 59 U/L (17-59) ALT 52 H U/L (6-50) Alkaline Phosphatase 66 U/L (38-126) Total Protein 8.0 g/dL (6.3-8.2) Albumin 4.6 g/dL (3.5-5.1) Urine Color Yellow (Yellow) Urine Appearance Clear (Clear) Urine pH 6.0 (5.0-9.0) Ur Specific [place] 1.021 (1.001-1.035) Urine Protein Trace mg/dL (Negative) Urine Glucose (UA) Negative mg/dL (Negative) Urine Ketones Trace H mg/dL (Negative) Ur Blood (Man) 3+ H (Negative) Urine Nitrate Negative (Negative) Urine Bilirubin Negative (Negative) Urine Urobilinogen 2.0 H mg/dL (<2.0) Leukocyte Esterase Rfl Negative MIRANDA/UL (Negative) Urine RBC >100 H /hpf (0-2) Urine WBC 0-5 /hpf (0-3) Ur Squamous Epith Cells None seen /hpf (Few) Urine Bacteria None seen /hpf Urine Casts 0-2 Patient hx anesthesia problems: none Family hx anesthesia problems: none Results Review: All pre-operative results and documents have been reviewed as part of the pre- operative evaluation. [facility] Past Medical History Medical History BMI 31.0-31.9,adult Screen for colon cancer BPH (benign prostatic hyperplasia) Hypertension Hamstring tear Broken bones Kidney stone Surgical History Surgical History History of surgical removal of meniscus of knee Family History Family History Father Cancer Hypertension Heart problem Throat cancer Mother COPD (chronic obstructive pulmonary disease) Sibling Hypertension Cerebrovascular accident Social History Social History Smoking packs per day: 0.25 Smoking cigarettes per day: 5.0 Years smoked: 44 Smoking pack-years: 11.00 Smoking status: Current every day smoker Tobacco type: cigarettes Second hand tobacco smoke exposure: Yes Additional smoking assessment comments: 1/2 pack a day Alcohol intake: never Alcohol use details: rarely Substance use: never Substance use type: does not use Do You Feel Safe in your Home?: Yes Lack of Transportation: No Lack of Food: Never True Current Housing: I Have Housing Concerned About Future Housing: No Difficulty Paying Gas/Electric Bills: No Difficulty Paying for Meds: No Currently Unemployed: No Education: High School Diploma/GED Difficulty w/ Childcare or Family Care: No Living arrangements: alone Occupation/Education: occupation Gender identity (if verbalized by the patient): Male Spiritual care concerns: No Anes - Eval Final PreProcedure Day of Procedure 07/24/24 17:24 Patient weight: obese Heart: irregular rhythm Lungs: clear to auscultation Airway: Mallampati scale class II Neurological: alert and oriented Last oral intake: >/= 8 hours ASA classification: III Emergent: no Anesthetic plan: proceed Anesthesia type and monitoring: general LMA and standard monitoring Results Review: All pre-operative results and documents have been reviewed as part of the pre- operative evaluation. HTN, pt denies JEROME, chr a fib on ASA only. Informed Consent: The patient's anesthetic plan and its attendant risks and benefits were discussed with the patient/family/POA. Questions were solicited and answers provided to the satisfaction of the patient/family/POA.
[2024-07-24] MEDS: LACTATED RINGERS 1,000 ML 30 ML IV CONT ×2 (17:37→19:46)
[2024-07-24] MEDS: ceFAZolin 2 GM/D5W 50 ML 2 GM/50 ML BAG IVPB (19:07)
[2024-07-24] MEDS: LIDOCAINE 2% GEL UROJET 10 ML PKG MUCOUS MEM (19:20)
--- NOTE | 2024-07-24 19:42 | W.PM.PROC2 ---
Procedure Note - Detailed Date of Procedure 07/24/24 Pre-op Diagnosis Left distal ureteral stone Post-op Diagnosis Same Procedure Performed Cystoscopy, left ureteroscopy with stone extraction, left ureteral stent placement Surgeon Nadir Kahn MD Anesthesia General Description of Procedure Patient is brought to the operative suite was prepped draped in routine sterile fashion while in dorsal lithotomy position after the uneventful induction of a general LMA anesthetic. Cystoscopy was undertaken with a 19 F rigid cystoscope. He has minimal prostatic hyperplasia and a endoscopically normal bladder. He has a single orthotopic ureteral orifice bilaterally. I had surprising difficulty advancing a 0.035 in glidewire into the left renal pelvis. Likewise I had difficulty dilating with an 8 F 10 F dilator due to, what appears to be, a stricture at the left ureteral orifice. Eventually I did get the ureter dilated, visualized the stone with a short tapered semi-rigid ureteral scope in extracted the stone without need for lithotripsy with a 1.9 F disposable stone basket. Opted to leave a 4.8 F variable length stent with the string attached. Scopes wires removed and he tolerated the procedure well. Urine Output 150 Drains Yes Pathology Yes Complications No immediate complications Disposition PACU
[2024-07-24] MEDS: KETOROLAC 30 MG/ML VIAL (*BKC) IV PUSH (22:27)
[2024-07-25] VITALS: BP 119/70; PULSE 108; RESP 18; TEMP 36.6; O2SAT 97
[2024-07-25 04:52] VITALS: BP 113/85; PULSE 68; RESP 16; TEMP 36.4; O2SAT 98
--- NOTE | 2024-07-25 07:05 | P.PNUR_ITS ---
Progress Note: A&P Assessment and Plan (1) Left ureteral stone: Code(s): N20.1 - Calculus of ureter Status: Acute Assessment and Plan: * From our standpoint, patient is doing well and can be discharged any time. Does have an indwelling stent attached to a string which hangs out his urethra. Explained that to * Should follow-up any time Sunday morning in our office for simple stent removal Subjective Subjective Date/Time Seen: 07/25/24 07:05 Interval history: No complaints. He notes scant hematuria but that is not clinically significant (likely related to the stent) Review of Systems Review of Systems: All systems reviewed & are unremarkable except as noted in HPI and below Exam Const: General: no acute distress Resp: Effort & Inspection: normal respiratory effort GI: Inspection: non-distended GI Palp: No abdominal tenderness and No Guarding due to palpation present (GI) Auscultation: normal bowel sounds Objective Data Vital Signs Vital Signs: Vital Signs - 24 hr 07/24/24 08:30 07/24/24 14:00 07/24/24 17:20 Temperature 97.8 F 97.1 F L Pulse Rate 62 66 Respiratory Rate 18 16 Blood Pressure 163/83 H 175/128 H Pulse Oximetry 99 96 Oxygen Delivery Room Air Room Air Oxygen Flow Rate 07/24/24 19:46 07/24/24 20:00 07/24/24 20:00 Temperature 98.4 F Pulse Rate 66 64 108 H Respiratory Rate 18 22 H 18 Blood Pressure 103/58 L 115/79 Pulse Oximetry 94 97 97 Oxygen Delivery Simple Face Mask Simple Face Mask Room Air Oxygen Flow Rate 8 8 07/24/24 20:15 07/24/24 20:30 07/24/24 20:50 Temperature Pulse Rate 63 63 84 Respiratory Rate 15 18 19 Blood Pressure 154/102 H 174/95 H 151/98 H Pulse Oximetry 94 94 95 Oxygen Delivery Room Air Room Air Room Air Oxygen Flow Rate 07/24/24 21:14 07/24/24 21:30 07/25/24 00:00 Temperature 97.8 F 97.7 F 97.9 F Pulse Rate 94 89 108 H Respiratory Rate 18 18 18 Blood Pressure 168/86 H 160/82 H 119/70 Pulse Oximetry 99 98 97 Oxygen Delivery Oxygen Flow Rate 07/25/24 04:52 Temperature 97.6 F Pulse Rate 68 Respiratory Rate 16 Blood Pressure 113/85 Pulse Oximetry 98 Oxygen Delivery Oxygen Flow Rate Intake/Output Intake/Output: Intake & Output 07/22/24 07/23/24 07/24/24 07/25/24 23:59 23:59 23:59 23:59 Intake Total 2350 250 Output Total 400 400 Balance 1950 -150 Meds/Results Medications: Active Medications Generic Name Dose Route Start Last Admin Trade Name Freq PRN Reason Stop Dose Admin Fentanyl Citrate 25 mcg 07/24/24 17:12 Fentanyl Citrate Inj (*Crx) 100 Mcg/2 Ml Vial IV PUSH Q2M PRN Pain Ketorolac Tromethamine 30 mg 07/24/24 07:00 07/24/24 22:27 Ketorolac 30 Mg/Ml Vial (*Bkc) IV PUSH 07/29/24 06:59 30 mg Q6H PRN Administration Pain Rated 4-6 Morphine Sulfate 4 mg 07/24/24 03:03 Morphine Sulfate (*Crx) 4 Mg/Ml Inj IV PUSH Q2H PRN Pain Rated 7-10 Radiology Results: ITS Impressions Abdomen X-Ray 07/24/24 05:14 Impression: No definite stone seen radiographically. Abdomen/Pelvis CT 07/24/24 05:22 Impression: Stable 5 mm distal left ureteral stone with left hydroureteronephrosis. Cholelithiasis. ADDENDUM: 07/24/24 0529 Stable 7 mm right middle lobe pulmonary nodule again noted.
--- NOTE | 2024-07-25 09:00 | PM.DS ---
DS: Admitting Diagnosis Discharge Date 07/25/2024 Admitting Diagnosis Left ureteral stone DS: Discharge Diagnosis Discharge Diagnosis (1) Left ureteral stone: Code(s): N20.1 - Calculus of ureter Status: Acute (2) Atrial fibrillation: Qualifiers: Atrial fibrillation type: unspecified Qualified Code(s): I48.91 - Unspecified atrial fibrillation Code(s): I48.91 - Unspecified atrial fibrillation Status: Acute (3) Hypertension: Qualifiers: Hypertension type: primary hypertension Qualified Code(s): I10 - Essential (primary) hypertension Code(s): I10 - Essential (primary) hypertension Status: Acute DS: Summary Hospital Course Reason for hospitalization: Left flank pain Hospital Course: Patient is a 64-year-old male with a past medical history of hypertension, BPH, atrial fibrillation for which he takes aspirin and a kidney stone that passed its own 15 years ago who presents to the hospital with left lower flank pain that started Sunday night. He states that the pain started abruptly while in bed and radiated to his left groin. He subsequently went to the emergency department and was diagnosed with a kidney stone but was ultimately discharged home. Was discharged Flomax and hydrocodone He states that the pain initially subsided but got worse yesterday. Describes it as intermittent sharp pain that radiates from his left lower flank to his left groin. Endorses associated nausea without vomiting. Any fevers, chills, gross hematuria/dysuria. Any chest pain, shortness of breath, headaches, dizziness, or bowel changes. Urology has been consulted for possible cystoscopy ED workup: 99.0F, 92 HR, 21 RR, 180/98BP, 100% RA WBC 14.4, Hgb 14.6, Hct 44.8, Na 139, K 3.8, BUN 18, Cr 1.12, Plt 280, Glucose 141. UA: Trace ketones, 3+ blood, 2 urobilinogen, >100 urine RBC Abdomen x-ray: No definite stone seen radiographically Abdomen/pelvis CT: Stable 5 mm distal left ureteral stone with left hydroureteronephrosis .Stable 7 mm right middle lobe pulmonary nodule again noted Urology consulted regarding left distal ureteral stone. Patient was seen by Urology who agree for cystoscopy, left ureteroscopy with stone extraction, and left ureteral stent placement. Via description of the procedure: He has minimal prostatic hyperplasia and a endoscopically normal bladder. Ureter was dilated, stone is visualized and extracted without need for lithotripsy. After the procedure, patient recovered well. He had some scant hematuria, which is to be expected after cystoscopy. Urology cleared patient for discharge with close follow-up with their office on Sunday regarding removal of stent. Patient otherwise hemodynamically stable requires no further workup. Patient to be discharged home at this time. Status at Discharge Functional status at discharge: independent ambulation Overall status at discharge: patient is back to baseline Time Spent with Patient Time attestation: Total time spent providing and/or coordinating discharge services: 30 Exam Narrative: Gen - well appearing male in no acute respiratory distress who is nontoxic-appearing lying semi recumbent in bed HEENT - normocephalic. Atraumatic. Pupils equal round and reactive. Extraocular motions intact. Nares patent. Oropharynx was clear. Moist mucous membranes. Tongue was midline. No facial asymmetry. Neck - neck was supple. 2+ carotid upstrokes without bruits. Chest - lungs are clear to auscultation bilaterally. No wheezes or crackles. CV - heart was regular rate and rhythm. S1-S2. No murmurs gallops or rubs. Abd -no CVA tenderness. Abdomen was soft. Nontender. Nondistended. Positive bowel sounds. No organomegaly or masses. Ext - no clubbing, cyanosis or edema. 2+ DP pulses bilaterally. Neuro - patient is alert and oriented x4. Strength is 5/5 in both upper and lower extremities. Cranial nerves 2-12 are intact. Speech is clear. Psych - normal mood and affect. Patient is pleasant and cooperative. Skin - warm and dry. No rashes noted. DS: Data Data Completed and Pending Pending studies at discharge: Pending at discharge 07/24/24 19:36 Surgical [PTH] Routine Discharge Plan Discharge Attending physician on discharge: Gal Hoover Consulting providers: Nadir Kahn Discharging Clinician: Gal Hoover Anticipated Discharge Date/Time: 07/25/24 08:55 Patient Disposition: Home Activity: as tolerated Diet: as tolerated Discharge Instructions: Take all medications as prescribed even if feeling better Eat well balanced meals and stay hydrated Keep active to remain strong Trend urine output If you should experience any chest pain, shortness of breath, temps >100.4 or any other worrisome symptoms please follow up with your PCP come back to the hospital Follow up with your primary in 2-3 weeks Follow-up with your urologist, Dr. Kahn, this coming Sunday for removal of your stent It has been a pleasure taking care of you thank you for using our services Patient Instructions: Antibiotic Form, Ureteral Stent Placement (DC) Patient Language: [place] Stand Alone Forms: General Discharge Information Follow-up/Referrals: Emelina Wetzel APRN [Primary Care Provider] - Nadir Kahn MD [Physician] - Discharge Medications: New ibuprofen 600 mg tablet 600 mg PO TID PRN (Reason: pain) 3 Days Qty: 9 0RF Continued multivitamin Tablet 1 tablet PO DAILY ascorbic acid (vitamin C) 1,000 mg tablet 1 g PO DAILY aspirin 325 mg tablet,delayed release (DR/EC) 325 mg PO DAILY cholecalciferol (vitamin D3) 10 mcg (400 unit) capsule 10 mcg PO DAILY lisinopril 10 mg tablet See Rx Instructions .ROUTE .COMPLEX Qty: 90 1RF Dose Instruction: TAKE 1 TABLET BY MOUTH EVERY DAY Rx Instructions: TAKE 1 TABLET BY MOUTH EVERY DAY Discontinued tamsulosin [Flomax] 0.4 mg capsule 0.4 mg PO DAILY 14 Days Qty: 14 0RF hydrocodone-acetaminophen 5-325 mg tablet 1 tablet PO Q12H PRN (Reason: pain) Qty: 14 0RF Date of admission: 07/24/24 03:03 Primary Care Provider: Emelina Wetzel Admitting Provider: Rachel Yin Attending physician on admission: Gal Hoover Condition: Stable Quality VTE Prophylaxis VTE prophylaxis: mechanical ordered
--- NOTE | 2024-07-28 13:59 | WPDHPUPDATE1 ---
History and Physical Update Update Date/Time: 07/28/24 13:59 History and Physical has been reviewed, including an updated exam of the patient. There are NO changes in the patient's condition. Risks, benefits, and alternatives have been discussed and questions answered. Patient agrees to proceed with procedure.
== END 2024-07-25 11:03 | disposition home or self-care (01) ==
LOC: ANHED 07-24 02:58 → ANH3MED 07-24 04:07
PROVIDERS: Registered Nurse; Urology; Admitting Provider Internal Medicine; Emergency Provider Emergency Medicine; PCP Nurse Practitioner Family; Visit Provider Physician Assistant
PROC: (CPT 52352; principal; 2024-07-24 18:00)
DX: N20.1 Calculus of ureter (principal); I48.91 Unspecified atrial fibrillation; I10 Essential (primary) hypertension; N40.0 Benign prostatic hyperplasia without lower urinary tract symptoms; F17.210 Nicotine dependence, cigarettes, uncomplicated; E66.9 Obesity, unspecified; Z68.36 Body mass index [BMI] 36.0-36.9, adult; Z79.82 Long term (current) use of aspirin; Z79.899 Other long term (current) drug therapy
CPT/HCPCS: 52352; 52332; 36415; 74018; 74176; 74420; 80053; 81001; 82365; 85025; 88300; 96361; 96374; 96375; 96376; 99285; A9270; C1758; C1769; C2617; G0378; J0690; J1171; J1885; J2003; J2405; J2704; J3010; J7030; J7120

== ENCOUNTER 2024-09-15 20:26 | Observation (INO) | payer OTHER, SELFPAY ==
[2024-09-15] VITALS (22 sets, daily range): BP systolic 141–167; BP diastolic 83–112; PULSE 59–107; RESP 13–26; TEMP 36.7; O2SAT 94–99; BMI 35.0
--- NOTE | ~2024-09-15 | XR_ITS ---
EXAMINATION: XR chest 1V portable Exam Date/Time: 09/15/2024 21:00 CDT HISTORY: R sided weakness Comparison: None. RESULT: Lines, tubes, and devices: None. Lungs and pleura: Clear. Cardiomediastinal silhouette: Stable. Other: No acute osseous or upper abdominal finding. IMPRESSION: No acute cardiopulmonary process. Reviewed, dictated and finalized at location K.
--- NOTE | ~2024-09-15 | CT_ITS ---
EXAMINATION: CTA brain carotid DATE: 09/15/2024 20:59 INDICATION: R sided weakness; LKW 2000 TECHNIQUE: Computed tomographic angiography (CTA) of the head was and neck was performed with 100 mL Omnipaque-350 intravenous contrast. Automated exposure control and iterative reconstruction technique were employed. The dose-length product was 1133.83 mGy-cm. Maximum intensity projection and volume rendered 3D-reconstructions were created by the technologist on a separate workstation. COMPARISON: CT brain, same date. FINDINGS: CTA HEAD: Significant venous contamination is present. No large vessel occlusion, aneurysm, high flow vascular malformation, nidus or extravasation. Hypoplastic or absent right A1 segment. Distal right BROOKE flow a ppears to be maintained via a patent anterior communication artery. The right vertebral artery termin ates in a cerebral vessel, a normal variant. Symmetric parenchymal enhancement. Patent cerebral veins . CTA NECK: Aortic arch and proximal great vessels: Normal arch anatomy. Atherosclerotic calcifications at the vi sualized aortic arch and proximal great vessels. Right common carotid, carotid bifurcation, and internal carotid artery: Calcified and noncalcified at herosclerotic plaque at the carotid bifurcation.There is 27% stenosis of the proximal right internal carotid artery relative to normal distal artery lumen diameter (NASCET criteria). Left common carotid, carotid bifurcation, and internal carotid artery: Calcified atherosclerotic plaq ue at the carotid bifurcation.There is 0% stenosis of the proximal left internal carotid artery relat deanna to normal distal artery lumen diameter (NASCET criteria). Vertebral arteries: No significant plaque or stenosis. Left vertebral artery is dominant. Other findings: Mild ectasia of the aortic arch and descending thoracic aorta. Degenerative changes i n the cervical spine. Multilevel moderate neural foraminal narrowing secondary to degenerative change . No severe central canal narrowing. IMPRESSION: No acute intracranial process. No large vessel intracranial occlusion, high-grade intracranial stenosis, or aneurysm. No carotid or vertebral artery occlusion, dissection, or significant stenosis. Reviewed, dictated and finalized at location K. IMPRESSION: No acute intracranial process. No large vessel intracranial occlusion, high-grade intracranial stenosis, or an eurysm. No carotid or vertebral artery occlusion, dissection, or significant stenosis.
--- NOTE | ~2024-09-15 | CT_ITS ---
EXAMINATION: CT brain wo con DATE: 09/15/2024 20:58 INDICATION: R sided weakness; LKW 1999 . TECHNIQUE: Computed tomography (CT) of the head was performed without intravenous contrast. The mA wa s adjusted according to patient size. Iterative reconstruction technique was employed. The dose-lengt h product was 681.00 mGy-cm. COMPARISON: None. FINDINGS: No acute intracranial hemorrhage or extra-axial fluid collection. No hydrocephalus, mass, or herniation. No acute ischemic infarct. Unremarkable dural venous sinus attenuation. No acute osseous abnormality. The aerated spaces are clear. Mild atrophy and chronic white matter change. Atherosclerotic intracranial calcification. Old focus o f encephalomalacia in the left frontal lobe. IMPRESSION: No acute intracranial process. Results reported telephonically to Dr. Cotto by Dr. Carlton at 9:01 PM on 09/15/2024. Reviewed, dictated and finalized at location K. IMPRESSION: No acute intracranial process. Results reported telephonically to Dr. Cotto by Dr. Carlton at 9:01 PM on 2024.
--- NOTE | ~2024-09-15 | MR_ITS ---
EXAMINATION: MR brain/brain stem wo/w con DATE: 09/16/2024 16:05 INDICATION: Transient ischemic episode TECHNIQUE: Magnetic resonance imaging (MRI) of the brain and brainstem was performed without and with 19 mL Multihance intravenous contrast. Sequences included sagittal and axial T1-weighted SE, axial d iffusion-weighted FS SE, axial 3D SWAN, axial T2-weighted FLAIR, and axial T2-weighted FSE. Postcontr ast axial and coronal T1-weighted SE was obtained. Apparent diffusion coefficient (ADC) maps were cre ated. COMPARISON: None. FINDINGS: Small region of encephalomalacia in left frontal lobe consistent with sequela of old infarct. There a re no areas of restricted diffusion to suggest acute infarction. No intracranial hemorrhage or abnorm al intracranial mass lesion. There is a empty sella with midline pituitary stalk extending to the p ituitary which is flattened with concave cephalad margin along the floor of the sella. There are no i ntraparenchymal signal abnormalities seen on the other pulse sequences. The ventricles are symmetric and normal in size. There are no abnormal extra-axial fluid collections. Flow voids are seen in the c erebral arteries on the T2-weighted sequences consistent with their expected patency. Visualized orbi ts and soft tissues are unremarkable. Mild mucosal thickening at the bilateral ethmoid sinuses. There are no areas of abnormal enhancement on the post contrast images. IMPRESSION: 1. 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 No acute intracranial process. 2. Empty sella with pituitary flattened along the floor of the sella which can be seen in the setti ng of idiopathic intracranial hypertension. Reviewed, dictated and finalized at location B. IMPRESSION: 1. 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 No acute intracranial process. 2. Empty sella with pituitary flattened along the floor of the sella which ca n be seen in the setting of idiopathic intracranial hypertension.
--- NOTE | 2024-09-15 20:39 | ECG_ITS ---
Test Date: 2024-09-15 21:01:15 Measurements Intervals [place] Rate: 72 P: 0 MT: 0 QRS: 16 QRSD: 105 T: 128 QT: 384 QTc: 420 Interpretive Statements ATRIAL FIBRILLATION ST DEVIATION AND MODERATE T-WAVE ABNORMALITY, CONSIDER LATERAL ISCHEMIA [-0.1+ mV T-WAVE IN I/aVL/V5/V6] No previous ECG available for comparison Electronically Signed On 09-16-2024 15:34:31 CDT by Star Aguirre
--- NOTE | 2024-09-15 20:45 | ED_ITS ---
HPI - Neuro Symptoms/Deficit General Chief Complaint: Neuro Symptoms/Deficit Stated Complaint: Right side weakness onset 30-40 min ago Time Seen by Provider: 09/15/24 20:39 Source: patient Mode of arrival: ambulatory Limitations: no limitations History of Present Illness HPI Narrative: Right hand dominant Patient presents with report of right-sided weakness that started 30-40 minutes prior to arrival, last known well 20:00. Patient states he was standing notice that his right leg followed immediately by his right arm became weak. There were weak to the degree that he ended up falling as a result and was on the ground and became very concerned about how he would get up and what to do. He does not believe there is any facial drooping or any other symptoms. He states it felt like he had overused these muscles the denies any recent repetitive movements, etc. patient does not have diabetes. He has a history of atrial fibrillation as well as hypertension and is on lisinopril. Not on any rate-controlling medications or anticoagulation but he does take 325 mg aspirin daily. States his symptoms have resolved but he is still concerned. States that they lasted for less than 10 minutes. Related Data Home Medications ?Medication ?Instructions ?Recorded ?Confirmed ?Last Taken ?Type aspirin 325 mg tablet,delayed 325 mg PO DAILY 01/11/24 09/16/24 09/16/24 History release Allergies Allergy/AdvReac Type Severity Reaction Status Date / Time No Known Allergies Allergy Verified 09/15/24 20:28 [facility] Past Medical History Medical History Atrial fibrillation Heart failure with mildly reduced ejection fraction Benign prostatic hyperplasia Right hand dominant Hypertension Kidney stone Surgical History Surgical History History of arthroscopic knee surgery History of cystoscopy History of surgical removal of meniscus of knee Family History Family History Father Cancer Hypertension Heart problem Throat cancer Mother COPD (chronic obstructive pulmonary disease) Sibling Hypertension Cerebrovascular accident, Onset Age: 60 Atrial fibrillation Social History Social History Social History: Surrogate medical decision maker: Ilan Moore, sibling. Code status: Full code. Smoking packs per day: 0.25 Smoking cigarettes per day: 5.0 Years smoked: 44 Smoking pack-years: 11.00 Smoking status: Current every day smoker Tobacco type: cigarettes Second hand tobacco smoke exposure: Yes Additional smoking assessment comments: 1/2 pack a day Alcohol intake: never Alcohol use details: rarely Substance use: never Substance use type: does not use Do You Feel Safe in your Home?: Yes Lack of Transportation: No Lack of Food: Never True Current Housing: I Have Housing Concerned About Future Housing: No Difficulty Paying Gas/Electric Bills: No Difficulty Paying for Meds: No Currently Unemployed: No Education: High School Diploma/GED Difficulty w/ Childcare or Family Care: No Spiritual care concerns: No Exam 2 Narrative: GENERAL: Well-appearing, well-nourished, and in no acute distress. HEAD: Normocephalic, atraumatic. EYES: Non injected, non icteric. Horizontal extraocular movements intact. Visual rodriguez intact without deficit. ENT: Nares clear, no rhinorrhea or epistaxis. Gross auditory acuity intact. NECK: Supple. No meningismus. CHEST: Speaking in full sentences. No respiratory distress. HEART: Tachycardic rate and rhythm. . ABDOMEN: Soft, nondistended. No rigidity or guarding. Not peritoneal EXTREMITIES: Normal range of motion. No lower extremity edema. SKIN: Warm, dry, no rash. NEURO: No focal deficits. Alert and oriented. Answering questions. Following commands. Normal speech without aphasia or dysarthria. No ataxia on [id number]. No extinction. No facial palsy/loss of nasolabial fold. No motor drift x4 extremities. PSYCH: Normal mood and affect. Course Vital Signs Vital signs: Vital Signs Temperature 98.1 F 09/15/24 20:29 Pulse Rate 107 H 09/15/24 20:29 Respiratory Rate 18 09/15/24 20:29 Blood Pressure 155/104 H 09/15/24 20:29 Pulse Oximetry 98 09/15/24 20:29 Oxygen Delivery Room Air 09/15/24 20:29 Temperature 97.1 F L 09/16/24 13:39 Pulse Rate 61 09/16/24 13:39 Respiratory Rate 16 09/16/24 13:39 Blood Pressure 141/83 H 09/16/24 13:39 Pulse Oximetry 99 09/16/24 13:39 Oxygen Delivery Room Air 09/16/24 08:00 MDM - Neuro Symptoms/Deficit MDM Narrative Medical decision making narrative: This is a right hand dominant 64 year old male who presents to the emergency department with concern for possible stroke. Last known well is 20:00. The patient is protecting their airway which is patent. An IV is established by nursing staff blood work sent to the lab for evaluation. An EKG will be performed. Accu-Chek was acceptable. NIHSS was evaluated per below. The patient was transported immediately to CT scan per stroke protocol for evaluation of acute intracranial bleed. Vital signs are notable for mild tachycardia as well as hypertension. NIHSS Level Of consciousness: 0 Month and age:0 Follows commands:0 Gaze palsy:0 Visual rodriguez:0 Facial palsy:0 Left arm motor drift:0 Right arm motor drift:0 Left leg motor drift:0 Right leg motor drift:0 Limb ataxia:0 Sensation:0 Aphasia:0 Dysarthria:0 Extinction:0 Total: 0 DIFFERENTIAL DIAGNOSES Considered Stroke (CVA / TIA) mimics including but not limited to: migraines, hypoglycemia, seizures/Jesse's paralysis, sepsis/severe infections in patients with prior strokes (e.g. recrudescence), syncope, brain masses, transient global amnesia, panic attack/hyperventilation, and conversion disorders. CT per stroke protocol as below. Patient has comorbidities that complexity management. Namely, he has a history of both hypertension and atrial fibrillation. Not currently on a rate controlling medication or anticoagulation. He is on 325 mg of aspirin daily. Management is discussed with radiologist first who confirms no acute process but encephalomalcia present. Labs reviewed and without marked abnormalities. Improved neuro exam more consistent with TIA (cerebral thrombus/embolus without infarct). ABCD2 Risk Score Age greater than or equal to 60: [Yes = 1, No = 0]: 1 Initial SBP greater than or equal to 140 or greater than or equal to DBP ?90 [Yes = 1, No = 0]: 1 Clinical features of TIA: [ Unilateral weakness +2, Speech impairment without weakness +1, other symptoms = 0]: 2 Duration of symptoms: [Less than 10 minutes = 0, 10-59 min = 1, greater than or equal to 60 min = 2 ]: 0 Hx of Diabetes [Yes = 1, No = 0]: 0 Total Score : 4 Per the validation study, 4-5 points moderate risk confers a 2-day stroke risk of 4.1% and a 7-day stroke risk of 5.9% and a 90-day stroke risk of 9.8%. I do believe patient should be admitted as an observation admission for further workup including MRI and risk factor modification. He has a history of atrial fibrillation but is not on anticoagulation or a rate controlling medication. Although he is rate controlled here, further consideration should be given in terms of comparing CHADS-VASC and HAS-BLED score to make sure all of his risk factors are optimized. Hemoglobin A1c and lipid panel are ordered. Patient's brother who is 1/2 years older than him had a stroke approximately 6 years ago and is on anticoagulation for his atrial fibrillation. Discussed with Dr. Hanson, neurologist to concurs. Patient discussed with on-call hospitalist ERIC Pedersen. Accepted for admission. Given absence of current neurological symptoms, med surge with telemetry. Patient will require admission with workup to possibly include echo, carotid Doppler/duplex and cardiac monitoring. Goal is to maintain normotension/permissive hypertension as well as euglycemia. Lab Data Attestation: I reviewed the patient's lab results. 09/15/24 20:46 09/16/24 06:46 Labs: Lab Results 09/15/24 09/15/24 09/15/24 Range/Units 20:42 20:46 20:47 WBC 8.9 (4.5-10.0) K/mm3 RBC 4.46 L (4.6-6.20) M/mm3 Hgb 13.9 L (14.0-18.0) g/dL Hct 42.8 (42.0-52.0) % MCV 96.0 (80-100) fl MCH 31.2 (26-34) pg MCHC 32.5 (32-36) g/dl RDW 13.2 (11.5-14.5) % Plt Count 280 (150-375) k/mm3 MPV 9.8 (7.4-10.4) fl Immature Gran % (Auto) 0.3 (0-0.5) % Neut % (Auto) 50.9 (45.5-73.1) % Lymph % (Auto) 34.2 (18.3-44.2) % Logan % (Auto) 9.7 H (2.6-8.5) % Eos % (Auto) 3.8 (0-4.4) % Baso % (Auto) 1.1 (0.2-1.2) % Lymph # (Auto) 3.03 (0.9-3.2) K/mm3 Logan # (Auto) 0.9 H (0.1-0.6) K/mm3 Eos # (Auto) 0.3 (0-0.3) K/mm3 Baso # (Auto) 0.1 (0.0-0.1) K/mm3 Abs Immat Gran (auto) 0.03 (0.00-0.031) K/mm3 Absolute Neuts (auto) 4.5 (1.3-6.7) K/mm3 Absolute Nucleated RBC 0.000 (0.0-0.012) K/mm3 Nucleated RBC % 0.0 (0.0-0.2) % PT 13.9 (11.1-14.7) Seconds INR 1.1 APTT 28.0 (22.3-36.8) Seconds Sodium 138 (137-145) mmol/L Potassium 3.7 (3.4-5.0) mmol/L Chloride 107 (98-107) mmol/L Carbon Dioxide 20 L (22-30) mmol/L Anion Gap 11 (4-12) mmol/L BUN 14 (9-20) mg/dL Creatinine 0.88 (0.7-1.3) mg/dL Estim Creat Clear Calc Not Reportable Estimated GFR > 60 (59 - ) Glucose 123 H (65-110) mg/dL POC Capillary Glucose 128 H (65-105) mg/dl Hemoglobin A1c 5.8 H (<5.7) % Calcium 9.3 (8.4-10.2) mg/dL Magnesium 1.9 (1.6-2.3) mg/dL Total Bilirubin 0.5 (0.2-1.3) mg/dL AST 29 (17-59) U/L ALT 25 (6-50) U/L Alkaline Phosphatase 52 (38-126) U/L Total Creatine Kinase 63 Cancelled (55-170) U/L Troponin I 0.015 (0.000-0.034) ng/mL Total Protein 7.5 (6.3-8.2) g/dL Albumin 4.3 (3.5-5.1) g/dL Triglycerides 81 (<150) mg/dL Cholesterol 133 (0-200) mg/dL LDL Cholesterol Direct 76 mg/dL HDL Direct 35 mg/dL Ethyl Alcohol < 10 (<10) mg/dL 09/15/24 Range/Units 20:51 WBC (4.5-10.0) K/mm3 RBC (4.6-6.20) M/mm3 Hgb (14.0-18.0) g/dL Hct (42.0-52.0) % MCV (80-100) fl MCH (26-34) pg MCHC (32-36) g/dl RDW (11.5-14.5) % Plt Count (150-375) k/mm3 MPV (7.4-10.4) fl Immature Gran % (Auto) (0-0.5) % Neut % (Auto) (45.5-73.1) % Lymph % (Auto) (18.3-44.2) % Logan % (Auto) (2.6-8.5) % Eos % (Auto) (0-4.4) % Baso % (Auto) (0.2-1.2) % Lymph # (Auto) (0.9-3.2) K/mm3 Logan # (Auto) (0.1-0.6) K/mm3 Eos # (Auto) (0-0.3) K/mm3 Baso # (Auto) (0.0-0.1) K/mm3 Abs Immat Gran (auto) (0.00-0.031) K/mm3 Absolute Neuts (auto) (1.3-6.7) K/mm3 Absolute Nucleated RBC (0.0-0.012) K/mm3 Nucleated RBC % (0.0-0.2) % PT (11.1-14.7) Seconds INR APTT (22.3-36.8) Seconds Sodium (137-145) mmol/L Potassium (3.4-5.0) mmol/L Chloride (98-107) mmol/L Carbon Dioxide (22-30) mmol/L Anion Gap (4-12) mmol/L BUN (9-20) mg/dL Creatinine 0.90 (0.7-1.3) mg/dL Estim Creat Clear Calc Not Reportable Estimated GFR > 60 (59 - ) Glucose (65-110) mg/dL POC Capillary Glucose (65-105) mg/dl Hemoglobin A1c (<5.7) % Calcium (8.4-10.2) mg/dL Magnesium (1.6-2.3) mg/dL Total Bilirubin (0.2-1.3) mg/dL AST (17-59) U/L ALT (6-50) U/L Alkaline Phosphatase (38-126) U/L Total Creatine Kinase (55-170) U/L Troponin I (0.000-0.034) ng/mL Total Protein (6.3-8.2) g/dL Albumin (3.5-5.1) g/dL Triglycerides (<150) mg/dL Cholesterol (0-200) mg/dL LDL Cholesterol Direct mg/dL HDL Direct mg/dL Ethyl Alcohol (<10) mg/dL Imaging Data Radiologist's impression: IMPRESSION: No acute intracranial process. Results reported telephonically to Dr. Cotto by Dr. Carlton at 9:01 PM on 09/15/2024. IMPRESSION: No acute intracranial process. No large vessel intracranial occlusion, high-grade intracranial stenosis, or aneurysm. No carotid or vertebral artery occlusion, dissection, or significant stenosis. IMPRESSION: No acute cardiopulmonary process. ECG Data EKG #1: Attestation: I personally reviewed and interpreted this ECG as follows: ECG completion date: 09/15/24 ECG completion time: 21:01 Interpretation: Atrial fibrillation at a rate of 72 beats per minute. QRS 105. QT/QTC 384/407. Good R-wave progression across the precordial leads. T-wave inversion versus biphasic nature in V5 6 but otherwise upright in contiguous V5. Discharge Plan Discharge Clinical Impression: Brain TIA Patient Disposition: Still a Patient Condition: Stable Time of Disposition: 22:31
[2024-09-15 20:53] LABS: Estimated Glomerular Filt Rate > 60
[2024-09-15 20:54] LABS: Hematocrit 42.8 % (42.0-52.0); Hemoglobin 13.9 g/dL (14.0-18.0); Immature Granulocyte Percent A 0.3 % (0-0.5); Lymphocytes Absolute Auto 3.03 K/mm3 (0.9-3.2); Mean Corpuscular HGB Conc 32.5 g/dl (32-36); Mean Corpuscular Hemoglobin 31.2 pg (26-34); Mean Corpuscular Volume 96.0 fl (80-100); Nucleated Red Blood Cells Absolute Auto 0.000 K/mm3 (0.0-0.012); Nucleated Red Blood Cells Perc 0.0 % (0.0-0.2); Platelet Count Result 280 k/mm3 (150-375); Red Blood Count 4.46 M/mm3 (4.6-6.20); White Blood Count 8.9 K/mm3 (4.5-10.0)
[2024-09-15 21:04] LABS: Alanine Aminotransferase 25 U/L (6-50); Albumin Level 4.3 g/dL (3.5-5.1); Alkaline Phosphatase 52 U/L (38-126); Anion Gap 11 mmol/L (4-12); Aspartate Amino Transferase 29 U/L (17-59); Bilirubin,Total 0.5 mg/dL (0.2-1.3); Blood Urea Nitrogen 14 mg/dL (9-20); Calcium 9.3 mg/dL (8.4-10.2); Carbon Dioxide 20 mmol/L (22-30); Chloride 107 mmol/L (98-107); Creatine Kinase 63 U/L (55-170); Estimated Glomerular Filt Rate > 60; Glucose 123 mg/dL (65-110); Potassium 3.7 mmol/L (3.4-5.0); Sodium 138 mmol/L (137-145); Total Protein 7.5 g/dL (6.3-8.2)
[2024-09-15 21:05] LABS: INR 1.1; Partial Thromboplastin Time 28.0 Seconds (22.3-36.8); Prothrombin Time 13.9 Seconds (11.1-14.7)
[2024-09-15 21:16] LABS: Troponin I 0.015 ng/mL (0.000-0.034)
[2024-09-15 21:29] LABS: Magnesium 1.9 mg/dL (1.6-2.3)
[2024-09-15 22:03] LABS: Cholesterol 133 mg/dL (0-200); HDL Direct 35 mg/dL; Triglycerides 81 mg/dL (<150)
[2024-09-15 22:06] LABS: Hemoglobin A1C. 5.8 % (<5.7)
[2024-09-15 23:39] LABS: Add Urine Microscopic? YES; Appearance Urine Clear (Clear); Glucose Urine UA Negative (Negative); Leukocyte Esterase Ur Negative LEU/UL (Negative); Nitrate Urine Negative (Negative); Specific Grav Ur > 1.045 (1.001-1.035)
[2024-09-15 23:53] LABS: Cannabinoid Screen Urine Negative (Negative)
--- NOTE | 2024-09-15 23:57 | ADMGEN ---
This patient, Jasper Moore, was admitted to [facility] Surg Room 325-02. Patient/family oriented to hospital policies and general routines including ID bracelet, bed and alarms, visiting hours, pain management, procedures, bathroom and other care routines, personal items, smoking policy, room service/diet, and visiting hours. Information on how to activate the Rapid Response Team has been discussed. Patient/Family are encouraged to report perceived risks to care and to ask questions if they do not understand what they are told or what they should do.
[2024-09-16] VITALS (9 sets, daily range): BP systolic 141–179; BP diastolic 83–91; PULSE 52–66; RESP 16–18; TEMP 36.2–36.7; O2SAT 92–99
--- NOTE | 2024-09-16 02:40 | PM.IMHP ---
H&P: HPI History of Present Illness Date/Time: 09/16/24 05:00 Chief Complaint: Concerns for stroke. Narrative: This is a very pleasant 64-year-old male with paroxysmal atrial fibrillation on full-dose aspirin, heart failure with mildly reduced ejection fraction, hypertension, benign prostatic hyperplasia, and kidney stones who presented to the emergency department via private vehicle with concerns for possible stroke. Approximately 30 to 40 minutes prior to arrival he was standing in his kitchen when his right leg started to shake and shortly thereafter he had similar symptoms in the right arm. His right leg then gave out which caused him to fall down to the floor. Eventually he was able to get himself up and his right-sided seemed to be working just fine although he told the triage nurse that his muscles felt fatigued on arrival. He denies syncope, near syncope, vertigo, visual changes, facial droop, difficulty speaking and swallowing, and paresthesias. He has never had similar symptoms and denies history of seizure, transient cerebral ischemia, and cerebrovascular accident. In the ED: Vital signs on arrival include a blood pressure 155/104 and a pulse of 107. EKG showed atrial fibrillation with mild T-wave depression in the lateral leads. Head CT showed no acute findings. Head and neck CTA also was without significant findings. CMP and CBC were pretty unremarkable with the only outliers being a hemoglobin of 13.9, carbon dioxide of 20, and a random glucose of 123. He is being admitted in this setting for close monitoring and further workup. Review of Systems Review of Systems: 12 systems were reviewed and are negative except for as per HPI. [facility] Past Medical History Medical History (Updated 09/16/24 @ 06:33 by Nuvia Mendez PA-C) Heart failure with mildly reduced ejection fraction Benign prostatic hyperplasia Right hand dominant Hypertension Kidney stone Surgical History Surgical History (Updated 09/16/24 @ 06:31 by Nuvia Mendez PA-C) History of arthroscopic knee surgery History of cystoscopy History of surgical removal of meniscus of knee Family History Family History Father Cancer Hypertension Heart problem Throat cancer Mother COPD (chronic obstructive pulmonary disease) Sibling Hypertension Cerebrovascular accident, Onset Age: 60 Atrial fibrillation Social History Social History (Updated 09/16/24 @ 06:31 by Nuvia Mendez PA-C) Social History: Surrogate medical decision maker: Ilan Moore, sibling. Code status: Full code. Smoking packs per day: 0.25 Smoking cigarettes per day: 5.0 Years smoked: 44 Smoking pack-years: 11.00 Smoking status: Current every day smoker Tobacco type: cigarettes Second hand tobacco smoke exposure: Yes Additional smoking assessment comments: 1/2 pack a day Alcohol intake: never Alcohol use details: rarely Substance use: never Substance use type: does not use Do You Feel Safe in your Home?: Yes Lack of Transportation: No Lack of Food: Never True Current Housing: I Have Housing Concerned About Future Housing: No Difficulty Paying Gas/Electric Bills: No Difficulty Paying for Meds: No Currently Unemployed: No Education: High School Diploma/GED Difficulty w/ Childcare or Family Care: No Spiritual care concerns: No Meds Home Medications and Allergies Home Medications ?Medication ?Instructions ?Recorded ?Confirmed ?Type aspirin 325 mg tablet,delayed 325 mg PO DAILY 01/11/24 09/16/24 History release lisinopril 10 mg tablet See Rx Instructions .Route 07/28/24 09/16/24 Rx .COMPLEX #90 tabs Allergies Allergy/AdvReac Type Severity Reaction Status Date / Time No Known Allergies Allergy Verified 09/15/24 20:28 Vital Signs Vital Signs - 24 hr 09/15/24 20:29 09/15/24 20:59 09/15/24 21:01 Temperature 98.1 F Pulse Rate 107 H 77 70 Respiratory Rate 18 15 13 Blood Pressure 155/104 H 167/97 H 167/97 H Pulse Oximetry 98 97 98 Oxygen Delivery Room Air 09/15/24 21:02 09/15/24 21:15 09/15/24 21:17 Temperature Pulse Rate 71 67 66 Respiratory Rate 21 H 23 H 18 Blood Pressure 150/84 H Pulse Oximetry 95 96 Oxygen Delivery 09/15/24 21:30 09/15/24 21:32 09/15/24 21:45 Temperature Pulse Rate 66 74 70 Respiratory Rate 14 14 23 H Blood Pressure 141/88 H Pulse Oximetry 96 96 94 Oxygen Delivery 09/15/24 21:46 09/15/24 22:00 09/15/24 22:02 Temperature Pulse Rate 66 64 71 Respiratory Rate 20 19 26 H Blood Pressure 145/92 H 160/83 H Pulse Oximetry 94 98 94 Oxygen Delivery 09/15/24 22:03 09/15/24 22:39 09/15/24 22:45 Temperature Pulse Rate 73 64 59 L Respiratory Rate 18 19 15 Blood Pressure Pulse Oximetry 96 97 Oxygen Delivery 09/15/24 22:47 09/15/24 23:00 09/15/24 23:02 Temperature Pulse Rate 64 64 64 Respiratory Rate 25 H 13 25 H Blood Pressure 157/104 H 152/96 H Pulse Oximetry 96 98 96 Oxygen Delivery 09/15/24 23:15 09/15/24 23:17 09/15/24 23:30 Temperature Pulse Rate 65 65 83 Respiratory Rate 16 17 18 Blood Pressure 158/112 H Pulse Oximetry 97 98 96 Oxygen Delivery 09/15/24 23:49 09/16/24 00:00 09/16/24 00:30 Temperature 98.0 F Pulse Rate 63 60 60 Respiratory Rate 16 16 Blood Pressure 166/95 H Pulse Oximetry 99 99 Oxygen Delivery Room Air Exam Narrative: General: Nontoxic-appearing male in the semi-Granger position in bed in no distress. Weight: 110.8 kg. BMI: 35.0. HEENT: PERRL, EOMI. Sclera anicteric. Oral mucosa moist. Oropharynx clear. Neck: Supple. No carotid bruits. Respiratory: Lungs are clear to auscultation bilaterally. Cardiovascular: Regular rate and rhythm with S1-S2. Gastrointestinal: Abdomen is soft, nontender, and nondistended with positive bowel sounds. Skin: Warm and dry. No rash or lesions on limited exam. Extremities: No cyanosis, clubbing, or edema. Radial and pedal pulses intact. Neurological: Alert and oriented. Cranial nerves grossly intact. Speech is clear. No facial asymmetry. No pronator drift. Normal [id number]. Hand foot pushes equal bilaterally. Strength 5/5 bilaterally. Sensation intact. Gait not assessed. Psychiatric: Pleasant and cooperative with normal mood and affect. Judgment and insight intact. H&P: Results Labs Labs: Short CBC 09/15/24 Range/Units 20:46 WBC 8.9 (4.5-10.0) K/mm3 Hgb 13.9 L (14.0-18.0) g/dL Hct 42.8 (42.0-52.0) % Plt Count 280 (150-375) k/mm3 [facility] 09/15/24 09/15/24 20:46 20:51 Sodium 138 Potassium 3.7 Chloride 107 Carbon Dioxide 20 L BUN 14 Creatinine 0.88 0.90 Glucose 123 H Calcium 9.3 Cardiac Enzymes 09/15/24 09/15/24 Range/Units 20:46 20:47 Total Creatine Kinase 63 Cancelled (55-170) U/L Troponin I 0.015 (0.000-0.034) ng/mL Liver Function 09/15/24 Range/Units 20:46 Total Bilirubin 0.5 (0.2-1.3) mg/dL AST 29 (17-59) U/L ALT 25 (6-50) U/L Alkaline Phosphatase 52 (38-126) U/L Albumin 4.3 (3.5-5.1) g/dL Urine 09/15/24 Range/Units 23:01 Urine Color Yellow (Yellow) Urine Appearance Clear (Clear) Urine pH 5.0 (5.0-9.0) Ur Specific Sherrill > 1.045 H (1.001-1.035) Urine Protein Negative (Negative) mg/dL Urine Glucose (UA) Negative (Negative) mg/dL Impressions Head CT 09/15/24 20:59 IMPRESSION: No acute intracranial process. Results reported telephonically to Dr. Cotto by Dr. Carlton at 9:01 PM on 09/15/2024. Head/Neck CTA 09/15/24 21:24 IMPRESSION: No acute intracranial process. No large vessel intracranial occlusion, high-grade intracranial stenosis, or aneurysm. No carotid or vertebral artery occlusion, dissection, or significant stenosis. Chest X-Ray 09/15/24 21:46 IMPRESSION: No acute cardiopulmonary process. Assessment and Plan Assessment and plan (1) Transient neurological symptoms: Code(s): R29.818 - Other symptoms and signs involving the nervous system Status: Acute (2) Atrial fibrillation: Qualifiers: Atrial fibrillation type: unspecified Qualified Code(s): I48.91 - Unspecified atrial fibrillation Code(s): I48.91 - Unspecified atrial fibrillation Status: Acute (3) Prediabetes: Code(s): R73.03 - Prediabetes Status: Acute (4) Hypertension: Qualifiers: Hypertension type: primary hypertension Qualified Code(s): I10 - Essential (primary) hypertension Code(s): I10 - Essential (primary) hypertension Status: Acute (5) Heart failure with mildly reduced ejection fraction: Code(s): I50.20 - Unspecified systolic (congestive) heart failure Status: Acute Plan The patient presented to the emergency department with concerns for possible stroke after he had a brief episode of shaking in his right lower leg, than his right arm, followed by weakness in the leg causing him to fall as detailed in HPI. Labs, imaging, EKG, and all reports were personally reviewed. NIHSS was 0 on arrival. Differential diagnosis includes focal seizure, transient cerebral ischemia, and even stroke. He is currently in atrial fibrillation is rate controlled. He takes aspirin 325 mg daily for the atrial fibrillation and is not on anticoagulation. He will be monitored on telemetry overnight. Echocardiogram with bubble study has been ordered. MRI and EEG have also been ordered. Neurology consult is appreciated. His blood pressures have been running high, in the 150s to 160s systolic and we will allow mild permissive hypertension for now. His volume status is euvolemic. Hemoglobin A1c was 5.8% today. His home medications will be reviewed and resumed as appropriate. Findings and treatment plan were discussed with the patient. Questions were solicited and answered to satisfaction. The patient's medical management will be taken over by the hospitalist team in a.m. Quality VTE Prophylaxis VTE prophylaxis: mechanical ordered The patient has been admitted under observation status. Hospitalist [facility] Advance Care Plan I have confirmed that the patient's Advanced Care Plan is present, code status is documented, or surrogate decision maker is listed in patient medical record.: Yes Medication Reconciliation I have utilized all available resources to obtain, update and review the patients current medications (includes all prescriptions, OTC, herbals, cannabis, and nutritional supplements).: Yes
--- NOTE | 2024-09-16 06:37 | ECHO_ITS ---
Patient Info Name: Jasper Moore Age: 64 years : 1960 Gender: Male Ht: 70 in Wt: 244 lbs BSA: 2.38 m2 HR: 66 bpm BP: 179 / 91 mmHg Heart Rhythm: Atrial Fibrillation Technical Quality: Fair Exam Date: 09/16/2024 2:06 PM Patient Status: I Admit Date: 09/15/2024 Exam Type: CA echo dop bubble study w con Complete two-dimentional, color flow and Doppler transthoracic echocardiogram is performed with agitated saline and with contrast to opacify the left ventricle and to improve the delineation of the left ventricle endocardial borders. Staff Referring Physician: Vicki Cotto Savings Counselor: Radha Beckham Attending Provider: Vic Singh Contrast/Agitated Saline Contrast/Ag. Saline: Agitated Saline Amount: 20.00 ml Administered By: Aminta Freeman Existing IV Access: Yes IV Access Condition: patent with no signs of infiltration Contrast/Ag. Saline: Definity Amount: 2.00 ml Administered By: Radha Beckham Existing IV Access: Yes IV Access Condition: patent with no signs of infiltration Summary 1. Definity contrast administered improved wall motion interpretation. 2. Left ventricular chamber dimension is moderately enlarged. 3. Left ventricular systolic function is moderately globally reduced, estimated at 40-45. 4. The left ventricular diastolic function is indeterminate. 5. Atrial fibrillation. 6. Left atrial chamber dimension is severely enlarged. 7. There is mild aortic valve sclerosis. 8. There is mild mitral valve regurgitation. 9. Dilated inferior vena cava with >50% collapse upon inspiration consistent with elevated right atrial pressure, 10 mmHg. Left Ventricle Left ventricular chamber dimension is moderately enlarged. Left ventricular systolic function is moderately globally reduced, estimated at 40-45. The left ventricular diastolic function is indeterminate. Atrial fibrillation. Tissue doppler was not performed. Definity contrast administered improved wall motion interpretation. Right Ventricle Right ventricular chamber dimension is normal. Right ventricular systolic function is normal. Left Atria Left atrial chamber dimension is severely enlarged. Right Atria Right atrial chamber dimension is normal. Atrial Septum Intact interatrial septum visualized by 2D and agitated saline imaging. Agitated saline injection with and without valsalva maneuver opacified right side cardiac chambers without shunt to left side cardiac chambers. Aortic Valve The aortic valve is trileaflet. There is mild aortic valve sclerosis. There is no aortic valve stenosis. There is no aortic valve regurgitation. Pulmonic Valve There is no pulmonic regurgitation. Mitral Valve There is no mitral valve stenosis. There is mild mitral valve regurgitation. Tricuspid Valve There is no tricuspid valve regurgitation. Pericardium/Pleural There is no pericardial effusion. Inferior Vena Cava Dilated inferior vena cava with >50% collapse upon inspiration consistent with elevated right atrial pressure, 10 mmHg. Aorta The aortic root size at the sinus of Valsalva is normal. Left Ventricular Outflow Tract Name Value Normal LVOT 2D LVOT Diameter 2.0 cm LVOT Doppler LVOT Peak Velocity 126 cm/s LVOT Peak Gradient 6 mmHg LVOT Mean Gradient 3 mmHg LVOT VTI 22 cm LVOT Stroke Volume 70 ml LVOT CO 4.5 l/min LVOT CI 1.9 l/min/m2 Pulmonic Valve Name Value Normal RVOT Doppler RVOT Peak Velocity 95 cm/s RVOT Peak Gradient 2 mmHg RVOT Mean Gradient 2 mmHg Tricuspid Valve Name Value Normal Estimated PAP/RSVP RA Pressure 10 mmHg <=5 TV Annular TDI TV Lateral Maritza s' Velocity 10.4 cm/s >=9.5 Aortic Valve Name Value Normal AV Doppler AV Peak Velocity 169 cm/s AV Peak Gradient 10 mmHg AV Area (Cont Eq Rafael) 2.3 cm2 AV DI (Rafael) 0.74 AV Regurgitation 2D LVOT Area 3.1 cm2 Ventricles Name Value Normal LV Dimensions 2D/MM IVS Diastolic Thickness (2D) 0.7 cm 0.6-1.0 LVID Diastole (2D) 5.6 cm 4.2-5.8 LVIW Diastolic Thickness (2D) 1.3 cm 0.6-1.0 LVID Systole (2D) 4.6 cm 2.5-4.0 LVOT Diameter 2.0 cm LV Mass (2D Cubed) 228.83 g 88.00-224.00 LV Mass Index (2D Cubed) 96 g/m2 49-115 Relative Wall Thickness (2D) 0.48 <=0.42 LV Fractional Shortening/Ejection Fraction 2D/MM LV Fractional Shortening (2D) 18 % 25-43 LV EF (2D Teichholz) 37 % LV Diastolic Volume (4C MOD) 183 ml LV EF (4C MOD) 39 % LV Diastolic Volume (2C MOD) 158 ml LV EF (2C MOD) 35 % LV Diastolic Volume (BP MOD) 177 ml 62-150 LV Diastolic Volume Index (BP MOD) 75 ml/m2 34-74 LV Systolic Volume (BP MOD) 105 ml 21-61 LV Systolic Volume Index (BP MOD) 44 ml/m2 11-31 LV EF (BP MOD) 41 % 52-72 LV Diastolic Length (4C) 8.8 cm LV Systolic Length (4C) 8.5 cm LV Stroke Volume (4C MOD) 71 ml Atria Name Value Normal RA Dimensions RA Systolic [employer] Length (4C) 7.5 cm 2.1-2.7 RA Area (4C) 20.7 cm2 <=18.0 Report Signatures
[2024-09-16 07:32] LABS: Anion Gap 8 mmol/L (4-12); Blood Urea Nitrogen 12 mg/dL (9-20); Calcium 9.3 mg/dL (8.4-10.2); Carbon Dioxide 24 mmol/L (22-30); Chloride 106 mmol/L (98-107); Cholesterol 120 mg/dL (0-200); Estimated CRCL calculation 96 ml/min; Estimated Glomerular Filt Rate > 60; Glucose 108 mg/dL (65-110); HDL Direct 34 mg/dL; Magnesium 2.0 mg/dL (1.6-2.3); Potassium 4.2 mmol/L (3.4-5.0); Sodium 138 mmol/L (137-145); Triglycerides 57 mg/dL (<150)
[2024-09-16 08:04] LABS: Vitamin B12. 289.0 pg/mL (239-931)
--- NOTE | 2024-09-16 08:18 | P.PNIM_ITS ---
Progress Note: A&P Assessment and Plan (1) Transient neurological symptoms: Code(s): R29.818 - Other symptoms and signs involving the nervous system Status: Acute Assessment and Plan: - brief episode of shaking in his right lower leg, than his right arm - NIHSS was 0 on arrival - r/o focal seizure, transient cerebral ischemia - EEG completed - Neurology consulted (2) Atrial fibrillation: Qualifiers: Atrial fibrillation type: unspecified Qualified Code(s): I48.91 - Unspecified atrial fibrillation Code(s): I48.91 - Unspecified atrial fibrillation Status: Acute Assessment and Plan: - Echocardiogram with bubble study has been ordered - continue ASA and current medication - cardiology consulted. (3) Prediabetes: Code(s): R73.03 - Prediabetes Status: Acute Assessment and Plan: monitor labs daily Hemoglobin A1c was 5.8% (4) Hypertension: Qualifiers: Hypertension type: primary hypertension Qualified Code(s): I10 - Essential (primary) hypertension Code(s): I10 - Essential (primary) hypertension Status: Acute Assessment and Plan: Continue medication (5) Heart failure with mildly reduced ejection fraction: Code(s): I50.20 - Unspecified systolic (congestive) heart failure Status: Acute Assessment and Plan: Echocardiogram with bubble study has been ordered -continue medications Plan Diet: Heart healthy DVT Prophylaxis: SCDs Code Status: Full code Disposition -once stable and cleared by Neurology and Cardiology, patient be discharged home with outpatient follow-up. Time Spent With Patient Time with patient: 25 - 35 minutes Subjective Date/time seen: 09/16/24 08:18 Interval history: Patient is sitting up in bed this am. He denies any distress or concerns, states he is anxious about seeing the neurologist. He has completed his eeg. Scheduled for ECHO with bubble test today. He denies any chest pain, SOB, headache or weakness. Review of Systems Review of Systems: 12 systems were reviewed and are negativ e except for as per HPI. Exam Narrative: General: Nontoxic-appearing male in the semi-Granger position in bed in no distress. Weight: 110.8 kg. BMI: 35.0. HEENT: PERRL, EOMI. Sclera anicteric. Oral mucosa moist. Oropharynx clear. Neck: Supple. No carotid bruits. Respiratory: Lungs are clear to auscultation bilaterally. Cardiovascular: Regular rate and rhythm with S1-S2. Gastrointestinal: Abdomen is soft, nontender, and nondistended with positive bowel sounds. Skin: Warm and dry. No rash or lesions on limited exam. Extremities: No cyanosis, clubbing, or edema. Radial and pedal pulses intact. Neurological: Alert and oriented. Cranial nerves grossly intact. Speech is clear. No facial asymmetry. No pronator drift. Normal [id number]. Hand foot pushes equal bilaterally. Strength 5/5 bilaterally. Sensation intact. Gait not assessed. Psychiatric: Pleasant and cooperative with normal mood and affect. Judgment and insight intact. Objective Data Vital Signs Vital Signs: Vital Signs - 24 hr 09/15/24 20:29 09/15/24 20:59 09/15/24 21:01 Temperature 98.1 F Pulse Rate 107 H 77 70 Respiratory Rate 18 15 13 Blood Pressure 155/104 H 167/97 H 167/97 H Pulse Oximetry 98 97 98 Oxygen Delivery Room Air 09/15/24 21:02 09/15/24 21:15 09/15/24 21:17 Temperature Pulse Rate 71 67 66 Respiratory Rate 21 H 23 H 18 Blood Pressure 150/84 H Pulse Oximetry 95 96 Oxygen Delivery 09/15/24 21:30 09/15/24 21:32 09/15/24 21:45 Temperature Pulse Rate 66 74 70 Respiratory Rate 14 14 23 H Blood Pressure 141/88 H Pulse Oximetry 96 96 94 Oxygen Delivery 09/15/24 21:46 09/15/24 22:00 09/15/24 22:02 Temperature Pulse Rate 66 64 71 Respiratory Rate 20 19 26 H Blood Pressure 145/92 H 160/83 H Pulse Oximetry 94 98 94 Oxygen Delivery 09/15/24 22:03 09/15/24 22:39 09/15/24 22:45 Temperature Pulse Rate 73 64 59 L Respiratory Rate 18 19 15 Blood Pressure Pulse Oximetry 96 97 Oxygen Delivery 09/15/24 22:47 09/15/24 23:00 09/15/24 23:02 Temperature Pulse Rate 64 64 64 Respiratory Rate 25 H 13 25 H Blood Pressure 157/104 H 152/96 H Pulse Oximetry 96 98 96 Oxygen Delivery 09/15/24 23:15 09/15/24 23:17 09/15/24 23:30 Temperature Pulse Rate 65 65 83 Respiratory Rate 16 17 18 Blood Pressure 158/112 H Pulse Oximetry 97 98 96 Oxygen Delivery 09/15/24 23:49 09/16/24 00:00 09/16/24 00:30 Temperature 98.0 F Pulse Rate 63 60 60 Respiratory Rate 16 16 Blood Pressure 166/95 H Pulse Oximetry 99 99 Oxygen Delivery Room Air 09/16/24 04:00 09/16/24 05:18 Temperature 98.1 F Pulse Rate 58 L 66 Respiratory Rate 16 Blood Pressure 179/91 H Pulse Oximetry 99 Oxygen Delivery Intake/Output Intake/Output: Intake & Output 09/13/24 09/14/24 09/15/24 09/16/24 23:59 23:59 23:59 23:59 Intake Total 200 Output Total 900 Balance -700 Meds/Results Medications: Active Medications Generic Name Dose Route Start Last Admin Trade Name Freq PRN Reason Stop Dose Admin Acetaminophen 650 mg 09/16/24 06:37 Acetaminophen 325 Mg Tablet PO Q6H PRN Mild Pain (1-3) or Fever Aspirin 325 mg 09/16/24 09:00 Aspirin 325 Mg Enteric Tablet PO DAILY [facility] Lisinopril 10 mg 09/16/24 09:00 Lisinopril 10 Mg Tablet BY MOUTH DAILY [facility] Ondansetron HCl 4 mg 09/15/24 22:31 Ondansetron Inj 4 Mg/2 Ml Vial IV PUSH Q4H PRN Nausea Perflutren Lipid Microsphere 0 ml 09/16/24 06:37 Perflutren Lipid Microspheres 1.5 Ml Vial Diluted To 10 Ml Total Volume IV PUSH 09/19/24 06:37 ONCE PRN adequate visualization Protocol Radiology Results: ITS Impressions Head CT 09/15/24 20:59 IMPRESSION: No acute intracranial process. Results reported telephonically to Dr. Cotto by Dr. Carlton at 9:01 PM on 09/15/2024. Head/Neck CTA 09/15/24 21:24 IMPRESSION: No acute intracranial process. No large vessel intracranial occlusion, high-grade intracranial stenosis, or aneurysm. No carotid or vertebral artery occlusion, dissection, or significant stenosis. Chest X-Ray 09/15/24 21:46 IMPRESSION: No acute cardiopulmonary process. Labs Labs: Laboratory Results - last 24 hr 09/15/24 09/15/24 09/15/24 20:42 20:46 20:47 WBC 8.9 RBC 4.46 L Hgb 13.9 L Hct 42.8 MCV 96.0 MCH 31.2 MCHC 32.5 RDW 13.2 Plt Count 280 MPV 9.8 Immature Gran % (Auto) 0.3 Neut % (Auto) 50.9 Lymph % (Auto) 34.2 Millard % (Auto) 9.7 H Eos % (Auto) 3.8 Baso % (Auto) 1.1 Lymph # (Auto) 3.03 Millard # (Auto) 0.9 H Eos # (Auto) 0.3 Baso # (Auto) 0.1 Abs Immat Gran (auto) 0.03 Absolute Neuts (auto) 4.5 Absolute Nucleated RBC 0.000 Nucleated RBC % 0.0 PT 13.9 INR 1.1 APTT 28.0 Sodium 138 Potassium 3.7 Chloride 107 Carbon Dioxide 20 L Anion Gap 11 BUN 14 Creatinine 0.88 Estim Creat Clear Calc Not Reportable Estimated GFR > 60 Glucose 123 H POC Capillary Glucose 128 H Hemoglobin A1c 5.8 H Calcium 9.3 Magnesium 1.9 Total Bilirubin 0.5 AST 29 ALT 25 Alkaline Phosphatase 52 Total Creatine Kinase 63 Cancelled Troponin I 0.015 Total Protein 7.5 Albumin 4.3 Triglycerides 81 Cholesterol 133 LDL Cholesterol Direct 76 HDL Direct 35 Vitamin B12 Urine Color Urine Appearance Urine pH Ur Specific Wilburn Urine Protein Urine Glucose (UA) Urine Ketones Ur Blood (Man) Urine Nitrate Urine Bilirubin Urine Urobilinogen Leukocyte Esterase Rfl Urine Opiates Screen Urine Methadone Screen Ur Barbiturates Screen Ur Phencyclidine Scrn Ur Amphetamine Screen U Benzodiazepines Scrn Urine Cocaine Screen U Cannabinoids Screen Ethyl Alcohol < 10 09/15/24 09/15/24 09/16/24 20:51 23:01 06:46 WBC RBC Hgb Hct MCV MCH MCHC RDW Plt Count MPV Immature Gran % (Auto) Neut % (Auto) Lymph % (Auto) Millard % (Auto) Eos % (Auto) Baso % (Auto) Lymph # (Auto) Millard # (Auto) Eos # (Auto) Baso # (Auto) Abs Immat Gran (auto) Absolute Neuts (auto) Absolute Nucleated RBC Nucleated RBC % PT INR APTT Sodium 138 Potassium 4.2 Chloride 106 Carbon Dioxide 24 Anion Gap 8 BUN 12 Creatinine 0.90 0.85 Estim Creat Clear Calc Not Reportable 96 Estimated GFR > 60 > 60 Glucose 108 POC Capillary Glucose Hemoglobin A1c Calcium 9.3 Magnesium 2.0 Total Bilirubin AST ALT Alkaline Phosphatase Total Creatine Kinase Troponin I Total Protein Albumin Triglycerides 57 Cholesterol 120 LDL Cholesterol Direct 71 HDL Direct 34 Vitamin B12 289.0 Urine Color Yellow Urine Appearance Clear Urine pH 5.0 Ur Specific Wilburn > 1.045 H Urine Protein Negative Urine Glucose (UA) Negative Urine Ketones Negative Ur Blood (Man) Negative Urine Nitrate Negative Urine Bilirubin Negative Urine Urobilinogen 2.0 H Leukocyte Esterase Rfl Negative Urine Opiates Screen Negative Urine Methadone Screen Negative Ur Barbiturates Screen Negative Ur Phencyclidine Scrn Negative Ur Amphetamine Screen Negative U Benzodiazepines Scrn Negative Urine Cocaine Screen Negative U Cannabinoids Screen Negative Ethyl Alcohol Quality VTE Prophylaxis VTE prophylaxis: mechanical ordered Hospitalist [facility] Advance Care Plan I have confirmed that the patient's Advanced Care Plan is present, code status is documented, or surrogate decision maker is listed in patient medical record.: Yes Medication Reconciliation I have utilized all available resources to obtain, update and review the patients current medications (includes all prescriptions, OTC, herbals, cannabis, and nutritional supplements).: Yes
[2024-09-16] MEDS: ASPIRIN 325 MG ENTERIC TABLET PO (08:52)
--- NOTE | 2024-09-16 10:30 | P.CONNEU_ITS ---
Assessment and Plan Assessment and plan (1) Brain TIA: Code(s): G45.9 - Transient cerebral ischemic attack, unspecified Status: Acute (2) Atrial fibrillation: Qualifiers: Atrial fibrillation type: unspecified Qualified Code(s): I48.91 - Unspecified atrial fibrillation Code(s): I48.91 - Unspecified atrial fibrillation Status: Acute Plan 1. TIA 2. History of atrial fibrillation. 3. Has been followed up by the substation electrician supervisor will request a cardiology consultation and consideration for the ongoing treatment of the atrial fibrillation because of recurrent TIA in addition we will obtain the repeat echocardiogram if substation electrician supervisor agreed to. Consult date: 09/16/24 HPI: Jasper Moore is a 64 year old male Has been admitted to the hospital through the emergency room where he presented with complaints of right-sided weakness between 30 to 40 minutes before arrival to the ER in addition to history of taking aspirin 325mg every day. He is not allergic to any medication. Has ongoing history of hypertension, years smoked 44 with 11 pack years and currently everyday smoker. On initial evaluation in the emergency room his exam was normal vital signs were normal except blood pressure being 155/104 repeat 167/97, CBC was normal, mast scan was normal, EKG was With atrial fibrillation at a rate of 72 beats per minute , initial CT scan of the head revealed no evidence of bleed, CTA of the brain and neck was normal. Review of Systems 2 Review of Systems: All systems reviewed & are unremarkable except as noted in HPI and below PMFSH Past Medical History Medical History Heart failure with mildly reduced ejection fraction Benign prostatic hyperplasia Right hand dominant Hypertension Kidney stone Surgical History Surgical History History of arthroscopic knee surgery History of cystoscopy History of surgical removal of meniscus of knee Family History Family History Father Cancer Hypertension Heart problem Throat cancer Mother COPD (chronic obstructive pulmonary disease) Sibling Hypertension Cerebrovascular accident, Onset Age: 60 Atrial fibrillation Social History Social History Social History: Surrogate medical decision maker: Ilan Moore, sibling. Code status: Full code. Smoking packs per day: 0.25 Smoking cigarettes per day: 5.0 Years smoked: 44 Smoking pack-years: 11.00 Smoking status: Current every day smoker Tobacco type: cigarettes Second hand tobacco smoke exposure: Yes Additional smoking assessment comments: 1/2 pack a day Alcohol intake: never Alcohol use details: rarely Substance use: never Substance use type: does not use Do You Feel Safe in your Home?: Yes Lack of Transportation: No Lack of Food: Never True Current Housing: I Have Housing Concerned About Future Housing: No Difficulty Paying Gas/Electric Bills: No Difficulty Paying for Meds: No Currently Unemployed: No Education: High School Diploma/GED Difficulty w/ Childcare or Family Care: No Spiritual care concerns: No Meds Home Medications and Allergies Home Medications ?Medication ?Instructions ?Recorded ?Confirmed ?Type aspirin 325 mg tablet,delayed 325 mg PO DAILY 01/11/24 09/16/24 History release lisinopril 10 mg tablet See Rx Instructions .Route 07/28/24 09/16/24 Rx .COMPLEX #90 tabs Allergies Allergy/AdvReac Type Severity Reaction Status Date / Time No Known Allergies Allergy Verified 09/15/24 20:28 Vital Signs Vital Signs - 24 hr 09/15/24 20:29 09/15/24 20:59 09/15/24 21:01 Temperature 36.7 C Pulse Rate 107 H 77 70 Respiratory Rate 18 15 13 Blood Pressure 155/104 H 167/97 H 167/97 H Pulse Oximetry 98 97 98 Oxygen Delivery Room Air 09/15/24 21:02 09/15/24 21:15 09/15/24 21:17 Temperature Pulse Rate 71 67 66 Respiratory Rate 21 H 23 H 18 Blood Pressure 150/84 H Pulse Oximetry 95 96 Oxygen Delivery 09/15/24 21:30 09/15/24 21:32 09/15/24 21:45 Temperature Pulse Rate 66 74 70 Respiratory Rate 14 14 23 H Blood Pressure 141/88 H Pulse Oximetry 96 96 94 Oxygen Delivery 09/15/24 21:46 09/15/24 22:00 09/15/24 22:02 Temperature Pulse Rate 66 64 71 Respiratory Rate 20 19 26 H Blood Pressure 145/92 H 160/83 H Pulse Oximetry 94 98 94 Oxygen Delivery 09/15/24 22:03 09/15/24 22:39 09/15/24 22:45 Temperature Pulse Rate 73 64 59 L Respiratory Rate 18 19 15 Blood Pressure Pulse Oximetry 96 97 Oxygen Delivery 09/15/24 22:47 09/15/24 23:00 09/15/24 23:02 Temperature Pulse Rate 64 64 64 Respiratory Rate 25 H 13 25 H Blood Pressure 157/104 H 152/96 H Pulse Oximetry 96 98 96 Oxygen Delivery 09/15/24 23:15 09/15/24 23:17 09/15/24 23:30 Temperature Pulse Rate 65 65 83 Respiratory Rate 16 17 18 Blood Pressure 158/112 H Pulse Oximetry 97 98 96 Oxygen Delivery 09/15/24 23:49 09/16/24 00:00 09/16/24 00:30 Temperature 36.7 C Pulse Rate 63 60 60 Respiratory Rate 16 16 Blood Pressure 166/95 H Pulse Oximetry 99 99 Oxygen Delivery Room Air 09/16/24 04:00 09/16/24 05:18 Temperature 36.7 C Pulse Rate 58 L 66 Respiratory Rate 16 Blood Pressure 179/91 H Pulse Oximetry 99 Oxygen Delivery Exam 2 Narrative: Exam today revealed him to be awake alert cooperative in no obvious acute distress, his speech was not dysphasic not dysarthric not dysphonic, he was aware of right and left, and recent remote memory was fair so as his judgment, head was normocephalic with no cranial bruits, ear nose throat examination was normal ,neck was supple with no cervical bruit, heart was regular with no murmur, lungs were clear to auscultation with no rhonchi or crepitations, abdomen soft nontender with normal bowel sounds, neurologically he was awake alert oriented his speech was not dysphasic ,not dysarthric ,not dysphonic ,pupils were round regular, rodriguez of vision were full in all 4 quadrants, extraocular movements were, full with no nystagmus ,facial sensation was intact ,face was symmetrical ,uvula midline ,tongue midline with no fasciculation ,motor examination revealed normal strength and tone in upper and lower extremities proximally and distally with normal and deep tendon reflexes ,plantars downgoing ,there was no evidence of gross sensory or cerebellar deficit. Results Labs 09/15/24 20:46 09/16/24 06:46 Labs: Short CBC 09/15/24 Range/Units 20:46 WBC 8.9 (4.5-10.0) K/mm3 Hgb 13.9 L (14.0-18.0) g/dL Hct 42.8 (42.0-52.0) % Plt Count 280 (150-375) k/mm3 BMP 09/15/24 09/15/24 09/16/24 20:46 20:51 06:46 Sodium 138 138 Potassium 3.7 4.2 Chloride 107 106 Carbon Dioxide 20 L 24 BUN 14 12 Creatinine 0.88 0.90 0.85 Glucose 123 H 108 Calcium 9.3 9.3 Cardiac Enzymes 09/15/24 09/15/24 Range/Units 20:46 20:47 Total Creatine Kinase 63 Cancelled (55-170) U/L Troponin I 0.015 (0.000-0.034) ng/mL Liver Function 09/15/24 Range/Units 20:46 Total Bilirubin 0.5 (0.2-1.3) mg/dL AST 29 (17-59) U/L ALT 25 (6-50) U/L Alkaline Phosphatase 52 (38-126) U/L Albumin 4.3 (3.5-5.1) g/dL Urine 09/15/24 Range/Units 23:01 Urine Color Yellow (Yellow) Urine Appearance Clear (Clear) Urine pH 5.0 (5.0-9.0) Ur Specific D Lo > 1.045 H (1.001-1.035) Urine Protein Negative (Negative) mg/dL Urine Glucose (UA) Negative (Negative) mg/dL
--- NOTE | 2024-09-16 13:39 | WPDNEUROLOGY ---
Neurology EEG Report General Information Date of Study: 09/16/24 TEST EEG DIAGNOSIS Transient neurological symptoms with shaking of right side. CONDITION OF RECORDING Awake, drowsy and asleep. EEG NUMBER [id number] CLINICAL HISTORY 64 years old male who came to the emergency room for the concerns of possible stroke. Patient reported he was standing in his kitchen when his right lower extremity became shaky and weak when it went up to his arm as well. His right lower extremity ended up giving out on him and he fell to the floor. EEG DESCRIPTION Basic resting occipital frequency consists of well-organized low-voltage to medium voltage 9 to 11 hertz per 2nd alpha admixed with low-voltage 15 to 18 hertz per 2nd beta. alpha activity asymmetrically blocked with opening of the eyes. Low-voltage beta activity seen admixed with waxing and waning posterior alpha rhythm during drowsiness evolving into the admixture of beta alpha and theta and then bilateral symmetrical sleep activity with bilateral symmetrical sleep spindles. Hyperventilation not done. Photic stimulation not done. Non paroxysmal. Nonfocal. Nonlateralizing. IMPRESSION Normal record. Clinical correlation recommended normal tracing does not rule out the possibility of seizures.
[2024-09-16] MEDS: PERFLUTREN LIPID MICROSPHERES 1.5 ML VIAL DILUTED TO 10 ML TOTAL VOLUME IV PUSH (13:45)
--- NOTE | 2024-09-16 14:07 | PM.CNCAR ---
Assessment and Plan Assessment and plan (1) Transient neurological symptoms: Code(s): R29.818 - Other symptoms and signs involving the nervous system Status: Acute Assessment and Plan: Neurology following. Probably related to atrial fib and cardioembolic phenomenon. (2) Atrial fibrillation: Qualifiers: Atrial fibrillation type: unspecified Qualified Code(s): I48.91 - Unspecified atrial fibrillation Code(s): I48.91 - Unspecified atrial fibrillation Status: Acute Assessment and Plan: [id number] 3 now since TIA. Rate is normal. Discuss anticoagulation and he is agreeable to start Eliquis 5 mg BID. (3) Systolic dysfunction: Code(s): I51.9 - Heart disease, unspecified Status: Acute Assessment and Plan: Check echo. (4) Tobacco abuse disorder: Code(s): Z72.0 - Tobacco use Status: Acute Assessment and Plan: Counseled regarding smoking cessation. (5) Hypertension: Qualifiers: Hypertension type: primary hypertension Qualified Code(s): I10 - Essential (primary) hypertension Code(s): I10 - Essential (primary) hypertension Status: Acute History of Present Illness History of Present Illness Consult date/time: 09/16/24 14:07 Reason For Visit: TIA Narrative: 64 yr old man who is my regular cardiology patient and a patient of Emelina Wetzel presents to ER with right sided weakness. He has a history of TIA, PAF, systolic dysfunction, hypertension, smoking. States last evening he was washing dishes and had sudden onset right arm then right leg weakness causing him to fall. Weakness lasted just 30 seconds. Reports he can walk 100 yards without any problems. He smokes <1/2 ppd. Denies chest pain, sob, orthopnea, PND, edema, dizziness, palpitations. Cardiovascular Procedures Echo/MUGA:: 02/06/24 Echo: EF 45-50%, mod LVE, diastolic dysfunction (E/e' 13), severe LAE, mild FLACO, trace MR/PI. Electrophysiology:: 12/19/23 EKG: Atrial fibrillation at 61 bpm, borderline ST-T wave in diffuse leads. Stress Tests:: 03/26/24 Lexiscan myoview: Negative; EF 38%. Review of Systems Review of Systems: All systems reviewed & are unremarkable except as noted in HPI and below Constitutional: Constitutional: Reports as per HPI, Denies chills and Denies fever(s) Cardiovascular: Cardiovascular: Reports as per HPI and Denies chest pain Respiratory: Respiratory: Reports as per HPI and Denies dyspnea Gastrointestinal: Gastrointestinal: Reports as per HPI and Denies abdominal pain Genitourinary: Genitourinary: Reports as per HPI and Denies dysuria Musculoskeletal: Musculoskeletal: Reports as per HPI Neurologic: Reports as per HPI, Denies dizziness and Denies syncope [facility] Past Medical History Medical History Heart failure with mildly reduced ejection fraction Benign prostatic hyperplasia Right hand dominant Hypertension Kidney stone Surgical History Surgical History History of arthroscopic knee surgery History of cystoscopy History of surgical removal of meniscus of knee Family History Family History Father Cancer Hypertension Heart problem Throat cancer Mother COPD (chronic obstructive pulmonary disease) Sibling Hypertension Cerebrovascular accident, Onset Age: 60 Atrial fibrillation Social History Social History Social History: Surrogate medical decision maker: Ilan Moore, sibling. Code status: Full code. Smoking packs per day: 0.25 Smoking cigarettes per day: 5.0 Years smoked: 44 Smoking pack-years: 11.00 Smoking status: Current every day smoker Tobacco type: cigarettes Second hand tobacco smoke exposure: Yes Additional smoking assessment comments: 1/2 pack a day Alcohol intake: never Alcohol use details: rarely Substance use: never Substance use type: does not use Do You Feel Safe in your Home?: Yes Lack of Transportation: No Lack of Food: Never True Current Housing: I Have Housing Concerned About Future Housing: No Difficulty Paying Gas/Electric Bills: No Difficulty Paying for Meds: No Currently Unemployed: No Education: High School Diploma/GED Difficulty w/ Childcare or Family Care: No Spiritual care concerns: No Meds Home Medications and Allergies Home Medications ?Medication ?Instructions ?Recorded ?Confirmed ?Type aspirin 325 mg tablet,delayed 325 mg PO DAILY 01/11/24 09/16/24 History release lisinopril 10 mg tablet See Rx Instructions .Route 07/28/24 09/16/24 Rx .COMPLEX #90 tabs Allergies Allergy/AdvReac Type Severity Reaction Status Date / Time No Known Allergies Allergy Verified 09/15/24 20:28 Vital Signs Vital Signs - 24 hr 09/15/24 20:29 09/15/24 20:59 09/15/24 21:01 Temperature 98.1 F Pulse Rate 107 H 77 70 Respiratory Rate 18 15 13 Blood Pressure 155/104 H 167/97 H 167/97 H Pulse Oximetry 98 97 98 Oxygen Delivery Room Air 09/15/24 21:02 09/15/24 21:15 09/15/24 21:17 Temperature Pulse Rate 71 67 66 Respiratory Rate 21 H 23 H 18 Blood Pressure 150/84 H Pulse Oximetry 95 96 Oxygen Delivery 09/15/24 21:30 09/15/24 21:32 09/15/24 21:45 Temperature Pulse Rate 66 74 70 Respiratory Rate 14 14 23 H Blood Pressure 141/88 H Pulse Oximetry 96 96 94 Oxygen Delivery 09/15/24 21:46 09/15/24 22:00 09/15/24 22:02 Temperature Pulse Rate 66 64 71 Respiratory Rate 20 19 26 H Blood Pressure 145/92 H 160/83 H Pulse Oximetry 94 98 94 Oxygen Delivery 09/15/24 22:03 09/15/24 22:39 09/15/24 22:45 Temperature Pulse Rate 73 64 59 L Respiratory Rate 18 19 15 Blood Pressure Pulse Oximetry 96 97 Oxygen Delivery 09/15/24 22:47 09/15/24 23:00 09/15/24 23:02 Temperature Pulse Rate 64 64 64 Respiratory Rate 25 H 13 25 H Blood Pressure 157/104 H 152/96 H Pulse Oximetry 96 98 96 Oxygen Delivery 09/15/24 23:15 09/15/24 23:17 09/15/24 23:30 Temperature Pulse Rate 65 65 83 Respiratory Rate 16 17 18 Blood Pressure 158/112 H Pulse Oximetry 97 98 96 Oxygen Delivery 09/15/24 23:49 09/16/24 00:00 09/16/24 00:30 Temperature 98.0 F Pulse Rate 63 60 60 Respiratory Rate 16 16 Blood Pressure 166/95 H Pulse Oximetry 99 99 Oxygen Delivery Room Air 09/16/24 04:00 09/16/24 05:18 Temperature 98.1 F Pulse Rate 58 L 66 Respiratory Rate 16 Blood Pressure 179/91 H Pulse Oximetry 99 Oxygen Delivery Exam Const: General: cooperative, healthy appearing and comfortable Resp: Auscultation: clear to auscultation bilaterally, no crackles, no rales, no rhonchi and no wheezes Cardio: Rate: regular rate Rhythm: abnormal rhythm Heart sounds: no murmurs Peripheral pulses: dorsalis pedis present GI: GI Palp: No abdominal tenderness and Yes Soft to palpation Neuro: General: oriented to person, oriented to place and oriented to time Extrem: Right lower extremity: no edema Left lower extremity: no edema Results Labs and Meds 09/15/24 20:46 09/16/24 06:46 Lab results: Cardiac Enzymes 09/15/24 Range/Units 20:46 AST 29 (17-59) U/L Troponin I 0.015 (0.000-0.034) ng/mL Coagulation 09/15/24 Range/Units 20:46 PT 13.9 (11.1-14.7) Seconds APTT 28.0 (22.3-36.8) Seconds Lipids 09/15/24 09/16/24 Range/Units 20:46 06:46 Triglycerides 81 57 (<150) mg/dL Cholesterol 133 120 (0-200) mg/dL CBC 09/15/24 Range/Units 20:46 WBC 8.9 (4.5-10.0) K/mm3 RBC 4.46 L (4.6-6.20) M/mm3 Hgb 13.9 L (14.0-18.0) g/dL Hct 42.8 (42.0-52.0) % Plt Count 280 (150-375) k/mm3 Lymph # (Auto) 3.03 (0.9-3.2) K/mm3 [place] # (Auto) 0.9 H (0.1-0.6) K/mm3 Eos # (Auto) 0.3 (0-0.3) K/mm3 Baso # (Auto) 0.1 (0.0-0.1) K/mm3 Comprehensive Metabolic Panel 09/15/24 09/15/24 09/16/24 Range/Units 20:46 20:51 06:46 Sodium 138 138 (137-145) mmol/L Potassium 3.7 4.2 (3.4-5.0) mmol/L Chloride 107 106 (98-107) mmol/L Carbon Dioxide 20 L 24 (22-30) mmol/L BUN 14 12 (9-20) mg/dL Creatinine 0.88 0.90 0.85 (0.7-1.3) mg/dL Glucose 123 H 108 (65-110) mg/dL Calcium 9.3 9.3 (8.4-10.2) mg/dL AST 29 (17-59) U/L ALT 25 (6-50) U/L Alkaline Phosphatase 52 (38-126) U/L Total Protein 7.5 (6.3-8.2) g/dL Albumin 4.3 (3.5-5.1) g/dL Intake and Output 09/15/24 09/16/24 09/16/24 23:59 07:59 15:59 Intake Total 200 240 Output Total 900 Balance -700 240 Intake: Oral 200 240 Output: Urine 900
--- NOTE | 2024-09-16 16:24 | IVDEFINITY ---
Prior to administration of IV Definity the patient was educated on the risks and benefits of the imaging enhancing agent including potential adverse side effects. The patient verbalized understanding. Allergies were verified. No exclusion criteria were identified and at least one of the following inclusion criteria were met: 1) physician request, 2) patient technically difficult to image (per the [place] [employer]ocardi[employer] guidelines of two or more segments not discernable within the apical view), or 3) questionable left ventricular function. ?
--- NOTE | 2024-09-16 19:00 | PC.NURSE ---
On 09/16/24, the SAP PP CONSULTANT, Mary Lou Ramos, provided care and completed [facility] documentation on this patient. I have reviewed the SAP PP CONSULTANT's documentation and agree with the findings.
[2024-09-16] MEDS: APIXABAN 5 MG TABLET PO (20:24)
[2024-09-17] VITALS: PULSE 56
[2024-09-17 04:00] VITALS: PULSE 52
[2024-09-17 06:00] VITALS: BP 151/78; PULSE 86; RESP 18; TEMP 36.4; O2SAT 95
[2024-09-17 06:35] LABS: Hematocrit 44.3 % (42.0-52.0); Hemoglobin 14.7 g/dL (14.0-18.0); Immature Granulocyte Percent A 0.1 % (0-0.5); Lymphocytes Absolute Auto 2.41 K/mm3 (0.9-3.2); Mean Corpuscular HGB Conc 33.2 g/dl (32-36); Mean Corpuscular Hemoglobin 32.2 pg (26-34); Mean Corpuscular Volume 96.9 fl (80-100); Nucleated Red Blood Cells Absolute Auto 0.000 K/mm3 (0.0-0.012); Nucleated Red Blood Cells Perc 0.0 % (0.0-0.2); Platelet Count Result 261 k/mm3 (150-375); Red Blood Count 4.57 M/mm3 (4.6-6.20); White Blood Count 7.5 K/mm3 (4.5-10.0)
[2024-09-17 07:02] LABS: Alanine Aminotransferase 23 U/L (6-50); Albumin Level 4.3 g/dL (3.5-5.1); Alkaline Phosphatase 51 U/L (38-126); Anion Gap 11 mmol/L (4-12); Aspartate Amino Transferase 39 U/L (17-59); Bilirubin,Total 1.1 mg/dL (0.2-1.3); Blood Urea Nitrogen 12 mg/dL (9-20); Calcium 9.3 mg/dL (8.4-10.2); Carbon Dioxide 22 mmol/L (22-30); Chloride 105 mmol/L (98-107); Estimated CRCL calculation 96 ml/min; Estimated Glomerular Filt Rate > 60; Glucose 101 mg/dL (65-110); Potassium 4.5 mmol/L (3.4-5.0); Sodium 138 mmol/L (137-145); Total Protein 7.8 g/dL (6.3-8.2)
--- NOTE | 2024-09-17 07:59 | PM.PNCARD ---
Progress Note: A&P Assessment and Plan (1) Transient neurological symptoms: Code(s): R29.818 - Other symptoms and signs involving the nervous system Status: Acute Assessment and Plan: Neurology following. Either TIA or focal seizure. If TIA, probably related to atrial fib and cardioembolic phenomenon. (2) Atrial fibrillation: Qualifiers: Atrial fibrillation type: unspecified Qualified Code(s): I48.91 - Unspecified atrial fibrillation Code(s): I48.91 - Unspecified atrial fibrillation Status: Inactive Assessment and Plan: [id number] 3 now since TIA. Rate is normal. Discuss anticoagulation and he is agreeable and started Eliquis 5 mg BID on 09/16/24. May d/c home from cardiology standpoint and f/u with me in 2 weeks. (3) Systolic dysfunction: Code(s): I51.9 - Heart disease, unspecified Status: Acute Assessment and Plan: Moderate. Euvolemic. On Lisinopril. Not on beta maddie due to low normal HR. Start Jardiance 10 mg daily. (4) Tobacco abuse disorder: Code(s): Z72.0 - Tobacco use Status: Acute Assessment and Plan: Counseled regarding smoking cessation. (5) Hypertension: Qualifiers: Hypertension type: primary hypertension Qualified Code(s): I10 - Essential (primary) hypertension Code(s): I10 - Essential (primary) hypertension Status: Acute Assessment and Plan: High. Increase Lisinopril 20 mg daily. Subjective Date/time seen: 09/17/24 07:59 Interval history: Denies chest pain, sob. No weakness of right side extremities. Exam Const: General: cooperative, healthy appearing and comfortable Orientation/consciousness: oriented to person, oriented to place and oriented to time Resp: Auscultation: clear to auscultation bilaterally, no crackles, no rales, no rhonchi and no wheezes Cardio: Rate: regular rate Rhythm: abnormal rhythm Heart sounds: no murmurs Peripheral pulses: dorsalis pedis present Neuro: General: oriented to person, oriented to place and oriented to time Extrem: Right lower extremity: no edema Left lower extremity: no edema Objective Data Vital Signs Vital Signs: Vital Signs - 24 hr 09/16/24 08:00 09/16/24 08:00 09/16/24 12:00 Temperature Pulse Rate 62 57 L Respiratory Rate Blood Pressure Pulse Oximetry Oxygen Delivery Room Air 09/16/24 13:39 09/16/24 20:00 09/16/24 22:00 Temperature 97.1 F L 97.2 F L Pulse Rate 61 52 L 62 Respiratory Rate 16 18 Blood Pressure 141/83 H 160/90 H Pulse Oximetry 99 92 Oxygen Delivery 09/17/24 00:00 09/17/24 04:00 09/17/24 06:00 Temperature 97.6 F Pulse Rate 56 L 52 L 86 Respiratory Rate 18 Blood Pressure 151/78 H Pulse Oximetry 95 Oxygen Delivery Intake/Output Intake/Output: Intake & Output 09/14/24 09/15/24 09/16/24 09/17/24 23:59 23:59 23:59 23:59 Intake Total 1040 400 Output Total 1225 Balance -185 400 Meds/Results Medications: Active Medications Generic Name Dose Route Start Last Admin Trade Name Freq PRN Reason Stop Dose Admin Acetaminophen 650 mg 09/16/24 06:37 Acetaminophen 325 Mg Tablet PO Q6H PRN Mild Pain (1-3) or Fever Apixaban 5 mg 09/16/24 21:00 09/16/24 20:24 Apixaban 5 Mg Tablet PO 5 mg Q12HR [place] Administration Empagliflozin 10 mg 09/17/24 09:00 Empagliflozin 10 Mg Tablet PO DAILY [facility] Lisinopril 20 mg 09/17/24 09:00 Lisinopril 20 Mg Tablet BY MOUTH DAILY [facility] Ondansetron HCl 4 mg 09/15/24 22:31 Ondansetron Inj 4 Mg/2 Ml Vial IV PUSH Q4H PRN Nausea Radiology Results: ITS Impressions Head CT 09/15/24 20:59 IMPRESSION: No acute intracranial process. Results reported telephonically to Dr. Cotto by Dr. Carlton at 9:01 PM on 09/15/2024. Head/Neck CTA 09/15/24 21:24 IMPRESSION: No acute intracranial process. No large vessel intracranial occlusion, high-grade intracranial stenosis, or aneurysm. No carotid or vertebral artery occlusion, dissection, or significant stenosis. Chest X-Ray 09/15/24 21:46 IMPRESSION: No acute cardiopulmonary process. Brain MRI 09/16/24 16:40 IMPRESSION: 1. 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 No acute intracranial process. 2. Empty sella with pituitary flattened along the floor of the sella which can be seen in the setting of idiopathic intracranial hypertension. Labs Labs: Laboratory Results - last 24 hr 09/16/24 09/17/24 06:46 06:25 WBC 7.5 RBC 4.57 L Hgb 14.7 Hct 44.3 MCV 96.9 MCH 32.2 MCHC 33.2 RDW 13.1 Plt Count 261 MPV 10.1 Immature Gran % (Auto) 0.1 Neut % (Auto) 55.4 Lymph % (Auto) 32.3 [place] % (Auto) 7.9 Eos % (Auto) 3.2 Baso % (Auto) 1.1 Lymph # (Auto) 2.41 [place] # (Auto) 0.6 Eos # (Auto) 0.2 Baso # (Auto) 0.1 Abs Immat Gran (auto) 0.01 Absolute Neuts (auto) 4.1 Absolute Nucleated RBC 0.000 Nucleated RBC % 0.0 Sodium 138 Potassium 4.5 Chloride 105 Carbon Dioxide 22 Anion Gap 11 BUN 12 Creatinine 0.85 Estim Creat Clear Calc 96 Estimated GFR > 60 Glucose 101 Calcium 9.3 Total Bilirubin 1.1 AST 39 ALT 23 Alkaline Phosphatase 51 Total Protein 7.8 Albumin 4.3 Vitamin B12 289.0
[2024-09-17 08:00] VITALS: PULSE 67
[2024-09-17] MEDS: EMPAGLIFLOZIN 10 MG TABLET PO (08:20)
[2024-09-17] MEDS: APIXABAN 5 MG TABLET PO (08:20)
--- NOTE | 2024-09-17 11:38 | P.PNNEUR_ITS ---
Progress Note: A&P Time Spent With Patient Time with patient: 15 - 25 minutes Subjective Date/time seen: 09/17/24 11:38 Interval history: admitted to the hospital for the diagnosis of TIA with documented atrial fibrillation and history of follow-up by the student success advisor. 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 Patient has been followed by the student success advisor with the previous history of atrial fibrillation as well in addition he is receiving the lisinopril 20mg daily, Jardiance 10mg daily, and is being started on apixaban 5mg he will follow with his student success advisor al as well as his family physician with the diagnosis of PI secondary to atrial fibrillation. EEG was done to rule out the possibility of the partial seizure that study was normal and echocardiogram documented atrial fibrillation with enlargement of left atrial chamber mild aortic valve sclerosis mild mitral valve regurgitation. Objective Data Vital Signs Vital Signs: Vital Signs - 24 hr 09/16/24 12:00 09/16/24 13:39 09/16/24 20:00 Temperature 36.2 C L Pulse Rate 57 L 61 52 L Respiratory Rate 16 Blood Pressure 141/83 H Pulse Oximetry 99 09/16/24 22:00 09/17/24 00:00 09/17/24 04:00 Temperature 36.2 C L Pulse Rate 62 56 L 52 L Respiratory Rate 18 Blood Pressure 160/90 H Pulse Oximetry 92 09/17/24 06:00 09/17/24 08:00 Temperature 36.4 C Pulse Rate 86 67 Respiratory Rate 18 Blood Pressure 151/78 H Pulse Oximetry 95 Intake/Output Intake/Output: Intake & Output 09/14/24 09/15/24 09/16/24 09/17/24 23:59 23:59 23:59 23:59 Intake Total 1040 640 Output Total 1225 Balance -185 640 Meds/Results Medications: Active Medications Generic Name Dose Route Start Last Admin Trade Name Freq PRN Reason Stop Dose Admin Acetaminophen 650 mg 09/16/24 06:37 Acetaminophen 325 Mg Tablet PO Q6H PRN Mild Pain (1-3) or Fever Apixaban 5 mg 09/16/24 21:00 09/17/24 08:20 Apixaban 5 Mg Tablet PO 5 mg Q12HR LAWRENCE Administration Empagliflozin 10 mg 09/17/24 09:00 09/17/24 08:20 Empagliflozin 10 Mg Tablet PO 10 mg DAILY LAWRENCE Administration Lisinopril 20 mg 09/17/24 09:00 09/17/24 08:20 Lisinopril 20 Mg Tablet BY MOUTH 20 mg DAILY LAWRENCE Administration Ondansetron HCl 4 mg 09/15/24 22:31 Ondansetron Inj 4 Mg/2 Ml Vial IV PUSH Q4H PRN Nausea Radiology Results: ITS Impressions Head CT 09/15/24 20:59 IMPRESSION: No acute intracranial process. Results reported telephonically to Dr. Cotto by Dr. Carlton at 9:01 PM on 09/15/2024. Head/Neck CTA 09/15/24 21:24 IMPRESSION: No acute intracranial process. No large vessel intracranial occlusion, high-grade intracranial stenosis, or aneurysm. No carotid or vertebral artery occlusion, dissection, or significant stenosis. Chest X-Ray 09/15/24 21:46 IMPRESSION: No acute cardiopulmonary process. Brain MRI 09/16/24 16:40 IMPRESSION: 1. 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 No acute intracranial process. 2. Empty sella with pituitary flattened along the floor of the sella which can be seen in the setting of idiopathic intracranial hypertension. Labs Labs: Laboratory Results - last 24 hr 09/17/24 06:25 WBC 7.5 RBC 4.57 L Hgb 14.7 Hct 44.3 MCV 96.9 MCH 32.2 MCHC 33.2 RDW 13.1 Plt Count 261 MPV 10.1 Immature Gran % (Auto) 0.1 Neut % (Auto) 55.4 Lymph % (Auto) 32.3 [place] % (Auto) 7.9 Eos % (Auto) 3.2 Baso % (Auto) 1.1 Lymph # (Auto) 2.41 [place] # (Auto) 0.6 Eos # (Auto) 0.2 Baso # (Auto) 0.1 Abs Immat Gran (auto) 0.01 Absolute Neuts (auto) 4.1 Absolute Nucleated RBC 0.000 Nucleated RBC % 0.0 Sodium 138 Potassium 4.5 Chloride 105 Carbon Dioxide 22 Anion Gap 11 BUN 12 Creatinine 0.85 Estim Creat Clear Calc 96 Estimated GFR > 60 Glucose 101 Calcium 9.3 Total Bilirubin 1.1 AST 39 ALT 23 Alkaline Phosphatase 51 Total Protein 7.8 Albumin 4.3
--- NOTE | 2024-09-17 12:57 | P.DS_ITS ---
DS: Admitting Diagnosis Discharge Date 09/17/2024 Admitting Diagnosis TIA/AFIB/diastolic heart failure DS: Discharge Diagnosis Discharge Diagnosis (1) Transient neurological symptoms: Code(s): R29.818 - Other symptoms and signs involving the nervous system Status: Acute (2) Atrial fibrillation: Qualifiers: Atrial fibrillation type: unspecified Qualified Code(s): I48.91 - Unspecified atrial fibrillation Code(s): I48.91 - Unspecified atrial fibrillation Status: Inactive (3) Prediabetes: Code(s): R73.03 - Prediabetes Status: Acute (4) Hypertension: Qualifiers: Hypertension type: primary hypertension Qualified Code(s): I10 - Essential (primary) hypertension Code(s): I10 - Essential (primary) hypertension Status: Acute (5) Heart failure with mildly reduced ejection fraction: Code(s): I50.20 - Unspecified systolic (congestive) heart failure Status: Acute DS: Summary Hospital Course Reason for hospitalization: TIA/AFIB/CHF Hospital Course: Admission: This is a very pleasant 64-year-old male with paroxysmal atrial fibrillation on full-dose aspirin, heart failure with mildly reduced ejection fraction, hypertension, benign prostatic hyperplasia, and kidney stones who presented to the emergency department via private vehicle with concerns for possible stroke. Approximately 30 to 40 minutes prior to arrival he was standing in his kitchen when his right leg started to shake and shortly thereafter he had similar symptoms in the right arm. His right leg then gave out which caused him to fall down to the floor. Eventually he was able to get himself up and his right-sided seemed to be working just fine although he told the triage nurse that his muscles felt fatigued on arrival. He denies syncope, near syncope, vertigo, visual changes, facial droop, difficulty speaking and swallowing, and paresthes ias. He has never had similar symptoms and denies history of seizure, transient cerebral ischemia, and cerebrovascular accident. In the ED: Vital signs on arrival include a blood pressure 155/104 and a pulse of 107. EKG showed atrial fibrillation with mild T-wave depression in the lateral leads. Head CT showed no acute findings. Head and neck CTA also was without significant findings. CMP and CBC were pretty unremarkable with the only outliers being a hemoglobin of 13.9, carbon dioxide of 20, and a random glucose of 123. He is being admitted in this setting for close monitoring and further workup. 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 cardiology was consulted due to patient's history of atrial fibrillation and echocardiogram showed no septal shunting but he did have diastolic dysfunction with reduced ejection fraction of 40-45%. cardiology recommended initiating Eliquis and discontinuing ASA. spoke with patient regarding initiating atorvastatin which time he has deferred to initiate until he follows up with his distance learning technician outpatient did inform patient further risks for TIAs and stroke. Neurology did perform an EEG just to rule out any possibility of partial seizures which was normal. patient with no neurological deficits at time of discharge he was prescribed Eliquis for atrial fibrillation continued his lisinopril and initiated Jardiance outpatient as stated before patient deferred starting a statin at this time. patient ambulatory on own. Status at Discharge Functional status at discharge: independent ambulation Overall status at discharge: patient is back to baseline Time Spent with Patient Time attestation: Total time spent providing and/or coordinating discharge services: Time spent: Greater than 30 minutes Exam Narrative: General: Nontoxic-appearing male in no acute distress HEENT: PERRL Oral mucosa moist. Neck: Supple. No JVD Respiratory: Lungs are clear to auscultation bilaterally. Cardiovascular: Regular rate and rhythm with S1-S2. Gastrointestinal: Abdomen is soft, nontender, and nondistended with positive bowel sounds. Skin: Warm and dry. No rash or lesions on limited exam. Extremities: No cyanosis, clubbing, or edema. Radial and pedal pulses intact. Neurological: Alert and oriented. Cranial nerves grossly intact. no neurological deficits Psychiatric: Pleasant and cooperative with normal mood and affect. DS: Data Data Completed and Pending Labs on day of discharge: Labs from last 24 hours 09/17/24 06:25 WBC 7.5 RBC 4.57 L Hgb 14.7 Hct 44.3 MCV 96.9 MCH 32.2 MCHC 33.2 RDW 13.1 Plt Count 261 MPV 10.1 Immature Gran % (Auto) 0.1 Neut % (Auto) 55.4 Lymph % (Auto) 32.3 [place] % (Auto) 7.9 Eos % (Auto) 3.2 Baso % (Auto) 1.1 Lymph # (Auto) 2.41 [place] # (Auto) 0.6 Eos # (Auto) 0.2 Baso # (Auto) 0.1 Abs Immat Gran (auto) 0.01 Absolute Neuts (auto) 4.1 Absolute Nucleated RBC 0.000 Nucleated RBC % 0.0 Sodium 138 Potassium 4.5 Chloride 105 Carbon Dioxide 22 Anion Gap 11 BUN 12 Creatinine 0.85 Estim Creat Clear Calc 96 Estimated GFR > 60 Glucose 101 Calcium 9.3 Total Bilirubin 1.1 AST 39 ALT 23 Alkaline Phosphatase 51 Total Protein 7.8 Albumin 4.3 Discharge Plan Discharge Attending physician on discharge: Mitchell Byrd Consulting providers: Jagdeep Hanson; Jaz Cunningham; Gonzales Leone; Nuvia Mendez; Star Aguirre; Nemo Abreu; Trey Newell; Tato Carlton Discharging Clinician: Jaz Cunningham Anticipated Discharge Date/Time: 09/17/24 12:52 Patient Disposition: Home Activity: may shower and as tolerated Diet: heart healthy Discharge Instructions: 1). TIA * I have prescribed Eliquis 5mg BID this it for HX of stroke/TIA * Please follow-up with your distance learning technician regarding starting an Atorvastatin 2). AFIB * You have been prescribed Eliquis to reduce chances of strokes * Follow-up with Cardiology as scheduled How can you care for yourself at home? ? Keep track of any new symptoms or changes in your symptoms. ? Rest until you feel better. ? Be safe with medicines. Take your medicines exactly as prescribed. Call your doctor if you think you are having a problem with your medicine. ? Do not drive after taking a prescription pain medicine. ? Ensure to follow-up with primary care physician as indicated and provide updated medication list provided to you at discharge. When should you call for help? Call 911 anytime you think you may need emergency care. For example, call if: ? You passed out (lost consciousness). Call your doctor now or seek immediate medical care if: ? You have new symptoms like fever, difficulty breathing, Chest pain, vomiting, or rash. ? You have new or different pain. ? You are confused and are having trouble thinking clearly. ? Your symptoms are getting worse. Watch closely for changes in your health, and be sure to contact your doctor if: ? You do not get better as expected. Patient Instructions: Antibiotic Form, Apixaban (By mouth), Transient Ischemic Attack (DC), Heart Failure (DC), A-fib (Atrial Fibrillation) (DC), How to Stop Smoking (GEN), Cigarette Smoking and Your Health (GEN) Patient Language: [place] Stand Alone Forms: General Discharge Information Follow-up/Referrals: Emelina Wetzel APRN [Primary Care Provider] - 3 Weeks Gonzales Leone DO [Physician] - Keep Reg. Scheduled Appt. Discharge Medications: New Eliquis 5 mg Tablet 5 mg PO Q12HR Qty: 60 0RF Jardiance 10 mg Tablet 10 mg PO DAILY Qty: 30 0RF Discontinued aspirin 325 mg tablet,delayed release (DR/EC) 325 mg PO DAILY No Action lisinopril 20 mg tablet 20 mg PO DAILY Qty: 30 0RF Date of admission: 09/15/24 22:31 Primary Care Provider: Emelina Wetzel Admitting Provider: Vic Singh Attending physician on admission: Mitchell Byrd Condition: Stable Quality VTE Prophylaxis VTE prophylaxis: mechanical ordered -Patient's previous records reviewed on admission -ER notes reviewed in detail on admission -discussed all findings and current treatment plan with patient/Family/POA -Consultations reviewed for recommendations -Patient's disposition for safe discharge discussed with correctional counselor/case manager Dictation performed by [employer] direct speech recognition software, therefore managed care coordinator variants and typographical errors may occur. Hospitalist MIPS Heart Failure (Exclusion) Patient has history of Heart Transplant or Left Ventricular Assistive Device?: No IF YES, STOP HERE Heart Failure (Qualifier) Patient has current or prior documentation of LVEF less than or equal to 40%, or mod/servere depressed LVSF?: No IF NO, STOP HERE
== END 2024-09-17 13:35 | disposition home or self-care (01) ==
LOC: ANHED 22:31 → ANH3MEDSUR 09-16 04:30
PROVIDERS: Nurse Practitioner Family; Physician Assistant; Admitting Provider Internal Medicine; Emergency Provider Student in an Organized Health Care Education/Training Program; PCP Nurse Practitioner Family; Visit Provider Internal Medicine
DX: G45.9 Transient cerebral ischemic attack, unspecified (principal); I48.0 Paroxysmal atrial fibrillation; I08.0 Rheumatic disorders of both mitral and aortic valves; I11.0 Hypertensive heart disease with heart failure; I50.22 Chronic systolic (congestive) heart failure; R73.03 Prediabetes; N40.0 Benign prostatic hyperplasia without lower urinary tract symptoms; N20.0 Calculus of kidney; F17.210 Nicotine dependence, cigarettes, uncomplicated; Z79.82 Long term (current) use of aspirin; Z79.899 Other long term (current) drug therapy; Z86.73 Personal history of transient ischemic attack (TIA), and cerebral infarction without residual deficits
CPT/HCPCS: 36415; 70450; 70496; 70498; 70553; 71045; 80048; 80053; 80061; 80307; 81001; 82077; 82550; 82607; 82948; 83036; 83735; 84484; 85025; 85610; 85730; 93005; 95816; 96374; 96375; 99285; A9270; A9577; C8929; G0378; Q9957; Q9967

== ENCOUNTER 2025-01-23 14:26 | Outpatient (CLI) | payer OTHER, SELFPAY ==
[2025-01-23 15:01] LABS: Hematocrit 47.5 % (42.0-52.0); Hemoglobin 15.4 g/dL (14.0-18.0); Mean Corpuscular HGB Conc 32.4 g/dl (32-36); Mean Corpuscular Hemoglobin 30.6 pg (26-34); Mean Corpuscular Volume 94.4 fl (80-100); Platelet Count Result 287 k/mm3 (150-375); Red Blood Count 5.03 M/mm3 (4.6-6.20); White Blood Count 9.3 K/mm3 (4.5-10.0)
[2025-01-23 15:56] LABS: Alanine Aminotransferase 23 U/L (6-50); Albumin Level 4.4 g/dL (3.5-5.1); Alkaline Phosphatase 54 U/L (38-126); Anion Gap 9 mmol/L (4-12); Aspartate Amino Transferase 38 U/L (17-59); Bilirubin,Total 0.8 mg/dL (0.2-1.3); Blood Urea Nitrogen 14 mg/dL (9-20); Calcium 9.2 mg/dL (8.4-10.2); Carbon Dioxide 27 mmol/L (22-30); Chloride 102 mmol/L (98-107); Cholesterol 135 mg/dL (0-200); Estimated Glomerular Filt Rate > 60; Glucose 116 mg/dL (65-110); HDL Direct 34 mg/dL; Potassium 3.6 mmol/L (3.4-5.0); Sodium 138 mmol/L (137-145); Total Protein 7.9 g/dL (6.3-8.2); Triglycerides 81 mg/dL (<150)
[2025-01-23 15:57] LABS: Hemoglobin A1C 6.0 % (<5.7)
[2025-01-23 16:41] LABS: Prostate Specific Antigen 2.7 ng/mL (< OR = 4.0)
== END 2025-01-23 14:27 | disposition home or self-care (01) ==
LOC: ANHLAB 14:29
PROVIDERS: PCP Nurse Practitioner Family; Visit Provider Nurse Practitioner Family
DX: I51.9 Heart disease, unspecified (principal); I48.91 Unspecified atrial fibrillation; R73.03 Prediabetes; E66.9 Obesity, unspecified; K42.9 Umbilical hernia without obstruction or gangrene; M19.90 Unspecified osteoarthritis, unspecified site; M25.561 Pain in right knee; R22.9 Localized swelling, mass and lump, unspecified; Z72.0 Tobacco use; Z12.5 Encounter for screening for malignant neoplasm of prostate; I11.0 Hypertensive heart disease with heart failure
CPT/HCPCS: 36415; 80053; 80061; 83036; 84153; 85027; G0103

== ENCOUNTER 2025-01-30 10:07 | Outpatient (CLI) | payer OTHER, SELFPAY ==
[2025-01-30 10:56] LABS: Cholesterol 143 mg/dL (0-200); HDL Direct 35 mg/dL; Triglycerides 64 mg/dL (<150)
== END 2025-01-30 10:08 | disposition home or self-care (01) ==
LOC: ANHLAB 10:08
PROVIDERS: PCP Nurse Practitioner Family; Visit Provider Nurse Practitioner Family
DX: E78.5 Hyperlipidemia, unspecified (principal)
CPT/HCPCS: 36415; 80061